=== PATIENT | female | born 1980 | race Caucasian/White ===

== ENCOUNTER 2016-06-05 12:47 | Outpatient (RCR) | payer MEDICAID ==
--- OUTSIDE RECORDS SUMMARY | 2016-05-01 14:24 | XMS REPORT | Continuity of Care Document ---
Author Author [facility] Organization [facility] Address Unknown Phone Unavailable Care Team Providers Care Php Programmer Name Role Phone [place] PCP [phone] Source Comments Some departments are not documenting in the electronic medical record. If you do not see the information that you expected, contact Release of Information in the Health Information Management department at [phone] for further assistance in locating additional records.[facility] Active Allergies and Adverse Reactions No Known Allergies Current Medications Prescription Sig. Disp. Refills Start End Date Status Date folic acid (FOLVITE) 1 mg Take 1 Tab by mouth 30 Tab 5 10/11/19 Active tablet daily. 15 cyclobenzaprine Take 1/2 tab 2 hrs prior 30 Tab 4 01/09/20 Active (FLEXERIL) 10 mg tablet to HS for muscle pain 16 amitriptyline (ELAVIL) 10 Take 1 tab 2 hrs prior to 30 Tab 5 01/09/20 Active mg tablet HS 16 hydroCHLOROthiazide Take 1 Tab by mouth 90 Tab 3 01/09/20 Active (HYDRODIURIL) 12.5 mg daily. 16 tablet lisinopril (PRINIVIL; Take 1 Tab by mouth 90 Tab 3 01/09/20 Active ZESTRIL) 5 mg tablet daily. 16 famotidine (PEPCID) 20 mg Take 1 Tab by mouth at 180 Tab 3 01/09/20 Active tablet bedtime daily. 16 metoprolol tartrate Take 1 Tab by mouth twice 180 Tab 3 01/09/20 Active (LOPRESSOR) 50 mg tablet daily. [address] Take 1 Tab by mouth 90 Tab 3 01/09/20 Active (PROTONIX) 40 mg tablet daily. 16 orphenadrine ER(+) Take 1 Tab by mouth twice 60 Tab 3 01/09/20 Active (NORFLEX) 100 mg tablet daily. 16 blood sugar diagnostic Use 1 Strip as directed 120 Strip 3 01/10/20 Active test strip daily before breakfast. 16 Brand "One Touch". ICD code E16.2 hypoglycemia Blood-Glucose Meter misc "One Touch" meter for 1 Each 0 01/10/20 Active hypoglycemia. ICD code 16 E16.2 hydroxychloroquine Take 1 Tab by mouth twice 60 Tab 5 01/16/20 Active (PLAQUENIL) 200 mg tablet daily. 16 ergocalciferol (VITAMIN Take 1 Cap by mouth every 12 Cap 2 01/16/20 Active D-2) 50,000 unit capsule 7 days. 16 Syringe with Needle Use 1 syringe weekly with 12 Syringe 3 01/16/20 Active (Disp) 1 mL 28 gauge x subcutaneous 16 1/2" syrg methotrexate. senna/docusate Take 1 Tab by mouth twice 60 Tab 0 02/03/20 Active (SENOKOT-S) 8.6/50 mg daily. 16 tablet methocarbamol (ROBAXIN) Take 1 Tab by mouth every 60 Tab 0 04/03/20 Active 500 mg tablet 8 hours as needed for 16 Spasms (Back Spasms). HYDROcodone/acetaminophen Take 1 Tab by mouth every 120 Tab 0 Active (NORCO) 5/325 mg tablet 6 hours as needed for 16 Pain gabapentin (NEURONTIN) 1 Cap three times daily. 90 Cap 1 04/03/20 Active 300 mg capsule one tab po qhs x 5 days, 16 then one tab po bid x 5 days, then one tab po tid gabapentin (NEURONTIN) 1 Cap three times daily. 90 Cap 1 01/09/20 Discontin 300 mg capsule one tab po qhs x 5 days, 16 16 ued then one tab po bid x 5 days, then one tab po tid methocarbamol (ROBAXIN) Take 1 Tab by mouth every 60 Tab 0 02/03/20 04/03/20 Discontin 500 mg tablet 8 hours as needed for 16 16 ued Spasms (Back Spasms). HYDROcodone/acetaminophen Take 1 Tab by mouth every 120 Tab 0 04/03/20 Discontin (NORCO) 5-325 mg tablet 6 hours as needed for 16 16 ued Pain Hospital, Clinic, or Ordered Dose Route Frequency Start End Date Status Other Facility Date Administered Medication methylprednisolone IX q5min x 2do 04/11/20 04/11/20 Ended acetate (DEPO-MEDROL) 80 16 16 mg/mL 80 mg, lidocaine PF 1% (10 mg/mL) 20 mg injectable mixture mepivacaine (PF)(+) 8mL IX ONCE 04/11/20 04/11/20 Ended (CARBOCAINE; POLOCAINE) 16 16 injection 8 mL methylprednisolone IX ONCE 04/12/20 04/11/20 Ended acetate (DEPO-MEDROL) 80 16 16 mg/mL 80 mg, lidocaine PF 1% (10 mg/mL) 20 mg injectable mixture methylprednisolone CHIARA-ARTICUL ONCE 04/12/20 04/11/20 Ended acetate (DEPO-MEDROL) 80 16 16 mg/mL 80 mg, lidocaine PF 1% (10 mg/mL) 20 mg injectable mixture methylprednisolone CHIARA-ARTICUL ONCE 04/25/19 04/25/19 Ended acetate (DEPO-MEDROL) 80 17 17 mg/mL 80 mg, lidocaine PF 1% (10 mg/mL) 20 mg injectable mixture mepivacaine (PF)(+) 8mL IJ ONCE 04/25/19 04/25/19 Ended (CARBOCAINE; POLOCAINE) 17 17 injection 8 mL methylprednisolone IX ONCE 04/25/19 04/25/19 Ended acetate (DEPO-MEDROL) 80 17 17 mg/mL 80 mg, lidocaine PF 1% (10 mg/mL) 20 mg injectable mixture methylprednisolone IX q5min x 2do 04/25/19 04/25/19 Ended acetate (DEPO-MEDROL) 80 17 17 mg/mL 80 mg, lidocaine PF 1% (10 mg/mL) 20 mg injectable mixture mepivacaine (PF)(+) 8mL IX ONCE 04/25/19 04/26/19 Ended (CARBOCAINE; POLOCAINE) 17 17 injection 8 mL Active Problems Problem Noted Date Cervical herniated disc 02/01/2016 Bicipital tendinitis of left shoulder 01/14/2016 Subdeltoid bursitis 01/14/2016 Hypoglycemia 01/09/2016 Overview: - Noted on recent CMP w/ BG down to 59, w/ new Sx's of lightheadedness & 5lb weight loss Plan: > Prescribe Glucometer w/ test strips, and instruct pt to check FSBG when she is feeling symptomatic. If BG <60-70, instructed pt to treat with 15g of CHO and recheck. > Counselled pt to eat frequent small meals, and eat more complex carbohydrates rather than simple carbohydrates. Orthopnea 01/09/2016 Overview: - Possibly related to cardiac etiology (w/ new intermittent ankle edema) vs. 2/2 anxiety - ECG in clinic with low voltage in precordial lead, but no ischemic changes or blocks Plan: > Echo > CT chest w/ contrast to evaluate for pulmonary etiology or possible lymphadenopathy, given hx of supraclavicular swelling, unintentional weight loss and night sweats. Hypertension 11/17/2015 Overview: - BP goal <=140/90 > Lisinopril 5mg QD, HCTZ 12.5mg QD and Lorpressor 50mg BID Macrocytic anemia 11/17/2015 Overview: - MCV 103 on last CBC with Hbg 11.7 > Check folate, B12 and iron Lymphadenopathy 11/17/2015 Overview: - B/L supraclavicular (R>L) and axillary initially developed May 2015. Also with night sweats and unintentional weight loss. - Pt notes that this supraclavicular swelling waxes and wanes in size. - Right supraclavicular IR guided biopsy 08/2015: (a discrete mass was not identified, and a hypoechoic area in one of the muscles in this area was the only region felt suitable for biopsy.) --> pathology w/ scant adipose tissue and no lymphoid tissue - CBC, peripheral smear, B12, folate, iron panel, ferritin, LDH, uric acid, T-spot all unremarkable Plan: > CT chest with contrast to evaluate for further lymphadenopthy Preventative health care 11/17/2015 Overview: - Last PAP: 2007 normal. Never had an abnormal PAP, but history of numerous cervical polyps. Strong FH of cervical cancer (grandmother, mother & sister). No family or personal Hx of ovarian or breast cancer. Discussed her increased risk for malignancy, given chronic immunosuppression. - Last Colonoscopy 12/21/15 normal. Will need repeat scope in 6 years. Father diagnosed with colon cancer (50s). Plan: > Referral to Gynecology Contact dermatitis due to adhesive bandage 08/11/2015 Overview: Pruritic 1 cm spot on each shoulder 6 days after Ped bandaid applied and removed one day later. Erythematous, papular cluster of lesions approximately the size of the Gauze inner pad on a pediatric Band-Aid (Victor Manuel pattern). Pain in both hands 05/11/2015 Cervical radicular pain 05/10/2015 Osteoarthritis of spine with radiculopathy, cervical region 05/10/2015 Overview: - MRI which shows a moderate-sized herniated disc at C6-7 > Repeat MRI of C-spine ([facility]) > Planning for neurosurgical intervention in 02/01/16. F/u with Dr. Trimble. Sacroiliitis (HCC) 01/31/2015 Fibromyalgia 01/13/2015 Shoulder pain, left 12/01/2014 Shoulder pain, right 12/01/2014 Bilateral hip bursitis 10/13/2014 Bilateral hip pain 10/13/2014 Hip bursitis 10/13/2014 Neck pain 10/11/2014 Chronic right SI joint pain 10/11/2014 Elevated liver function tests 10/11/2014 Noncompliance 10/11/2014 Encounter for long-term (current) use of high-risk medication 10/15/2013 Obesity (BMI 30.0-34.9) 10/15/2013 Low back pain 06/10/2013 Vitamin D deficiency 06/10/2013 Overview: - last vit D 16.1 (09/2015) > Will recheck vitamin D level > Start cholecalciferol 1,000 IU qd Immunocompromised (HCC) 06/10/2013 Sleep disorder 06/10/2013 Inflammatory arthritis (HCC) 11/26/2011 Overview: - Follows with Dr. Calloway in Rheumatology - Last eye exam 09/2015 with no evidence of damage from Plaquinil > Xnecmvvccndw97.5mg Q7days, Bbuupxrix739 mg/d, orphenadrine 100mg BID Joint pain 11/26/2011 Hepatitis C 11/26/2011 Overview: - Dx in 2008. Genotype 2b, HCV PCR [id number]/ml. Tx started in Mar 2013 with several months of Tx but does not think she was virus negative. - Liver biopsy with stage 1/6 fibrosis, no fat in August 2014. - Started sofosbuvir and wt based dose ribavirin (completed treatment end of September 2015.) HCV PCR is undetectable. She is responded to treatment and no evidence of HCV. SVR confirmed 3 months post treatment. Plan: > f/u with Hepatology in 01/16/16 Encounter for long-term (current) use of other high-risk medications 2011 Most Recent Encounters Date Type Specialty Providers Description 04/29/2016 Orders Only Neurosurgery Shay Trimble MD Cervical herniated disc (Primary Dx); S/P cervical spinal fusion 04/25/2016 Procedure visit Allergy,Immunology and Matty Calloway MD Right shoulder pain, Rheumatology unspecified chronicity (Primary Dx); Inflammatory arthritis (HCC); Subdeltoid bursitis, right 04/11/2016 Procedure visit Allergy,Immunology and Matty Calloway MD Shoulder arthritis Rheumatology (Primary Dx); Shoulder bursitis, left [M75.52]; Chronic left shoulder pain; Obesity (BMI 30.0-34.9); Inflammatory arthritis (HCC) 04/03/2016 Office Visit Anesthesia Pain Maninder Vargas MD Cervical radicular pain (Primary Dx); Fibromyalgia; Sacroiliitis (HCC) 02/29/2016 Telephone Anesthesia Pain Shira Ponce RN Referral 02/27/2016 Office Visit Anesthesia Pain Maninder Vargas MD Osteoarthritis of spine with radiculopathy, cervical region (Primary Dx) 02/20/2016 Hospital Radiology Shay Trimble MD Encounter 02/20/2016 Office Visit Neurosurgery Shay Trimble MD Cervical herniated disc (Primary Dx) 02/20/2016 Orders Only Neurosurgery Shay Trimble MD Herniation of cervical intervertebral disc with radiculopathy (Primary Dx); S/P cervical spinal fusion 02/08/2016 Telephone Neurosurgery Kaia Lombardo Wound 02/08/2016 Telephone Neurosurgery Shay Trimble MD General Question 02/05/2016 Telephone Neurosurgery Shay Trimble MD Follow-up Phone Call 02/01/2016 Hospital Radiology Shay Trimble MD Encounter 02/01/2016 Hospital Radiology Shay Trimble MD Encounter 02/01/2016 [facility] Radiology Shay Trimble MD Encounter 02/01/2016 Surgery Shay Trimble MD ANTERIOR CERVICAL 6-7 FUSION Immunizations Name Dates Previously Given Next Due Pneumococcal Vaccine 10/09/2015 (23-Radha Adult) Pneumococcal 06/10/2013 Vaccine(13-[facility]ha Peds/immunocompromised adult) Social History Tobacco Use Types Packs/Day Years Used Date Former Smoker Cigarettes 0.5 14 Quit: 02/03/2012 Smokeless Tobacco: Never Used Tobacco Cessation: Ready to Quit: Yes; Counseling Given: No Comments: Alcohol Use Drinks/Week oz/Week Comments No 0 Standard 0.0 drinks or equivalent Last Filed Vital Signs Vital Sign Reading Time Taken Blood Pressure 119/84 04/25/2016 12:32 PM WINE MASTER Pulse 104 04/25/2016 12:32 PM WINE MASTER Temperature 36.9 C (98.4 F) 04/25/2016 12:32 PM WINE MASTER Respiratory Rate 16 04/25/2016 12:32 PM WINE MASTER Height 1.499 m (4' 11.02") 04/25/2016 12:32 PM WINE MASTER Weight 69.037 kg (152 lb 3.2 oz) 04/25/2016 12:32 PM WINE MASTER Body Mass Index 30.72 04/25/2016 12:32 PM WINE MASTER Oxygen Saturation 96% 04/03/2016 2:03 PM WINE MASTER Plan of Care Date Type Specialty Providers Description 05/07/2016 Appointment Anesthesia Pain 06/04/2016 Appointment Allergy,Immunology and Matty Calloway MD Rheumatology [address] [place] [address] [phone] (Fax) 06/11/2016 Appointment Neurosurgery Shay Trimble MD [address] [place] [address] [phone] (Fax) 07/15/2016 Appointment Hepatology Ruba Salgado APRN [address] [place] [address] [phone] (Fax) Health Maintenance Due Date Last Done Comments Pertussis Vaccine 1992 Tetanus Vaccine 1998 Cervical Cancer Screening 2002 Influenza Vaccine 12/21/2015 Physical (Comprehensive) 11/16/2016 11/17/2015 Exam Procedures from Last 3 Months Procedure Name Priority Date/Time Associated Diagnosis Comments ARTHROCENTESIS-CLINIC Routine 04/25/2016 Right shoulder pain, Results for this 4:53 PM WINE MASTER unspecified chronicity procedure are in the Inflammatory arthritis results section. (HCC) Subdeltoid bursitis, right ARTHROCENTESIS-CLINIC Routine 04/13/2016 Shoulder arthritis Results for this 10:11 PM WINE MASTER Shoulder bursitis, left procedure are in the [M75.52] results section. PROCEDURES-SCAN 02/05/2016 Results for this 8:40 PM CDT procedure are in the results section. ANTERIOR CERVICAL 6-7 02/01/2016 Cervical stenosis of FUSION 9:50 AM CDT spinal canal Special Needs 01/28 PER CHANGE FORM, PT STATUS TYPE CHANGED FROM EXT REC TO SDA - [facility] ([id number]) Results from Last 3 Months [place] DRAIN/INJECT LARGE JOINT/BURSA (04/25/2016 4:53 PM)Only the most recent of 2 results within the time period is included. Narrative CELESTE Benites 04/25/20164:53 PM Intraarticular/ bursa injection(s) Consent was obtained Area was prepped in sterile manner. Location clarified for right patient, right location, and right medication. Location: Right glenohumeral joint andright subdeltoid bursa Procedure: Injection without aspiration. IA administration of DepoMedrol 80 mg+Lidocaine 20 mg + Mepivacaine 80 mg and bursa injection of DepoMedrol 80 mg+Lidocaine 20 Pain Scale: Before injection:09/28 Procedure done by: Leanne ALONSO Written post-injection instructions were given. Was attending physician present for the entire procedure? Yes Attending Physician: Matty Calloway MD No complications before, during, or after the procedure. Leanne Roper Rheumatology Fellow ARTHROCENTESIS-CLINIC (04/25/2016 4:53 PM) Narrative CELESTE Benites 04/25/20164:53 PM Intraarticular/ bursa injection(s) Consent was obtained Area was prepped in sterile manner. Location clarified for right patient, right location, and right medication. Location: Right glenohumeral joint andright subdeltoid bursa Procedure: Injection without aspiration. IA administration of DepoMedrol 80 mg+Lidocaine 20 mg + Mepivacaine 80 mg and bursa injection of DepoMedrol 80 mg+Lidocaine 20 Pain Scale: Before injection:09/28 Procedure done by: Leanne ALONSO Written post-injection instructions were given. Was attending physician present for the entire procedure? Yes Attending Physician: Matty Calloway MD No complications before, during, or after the procedure. Leanne Roper Rheumatology Fellow ARTHROCENTESIS-CLINIC (04/13/2016 10:11 PM) Narrative Matty Calloway MD 04/13/2016 10:11 PM Arthrocenteses/Intraarticular injection(s) Consent was obtained Area was prepped in sterile manner. Location clarified for right patient, right location, and right medication. Location: LeftShoulder IA Procedure: Injection without aspiration. Mepivacaine 60-80 mg + DepoMedrol 80 mg + Lidocaine 20 mg. Pain Scale: Before injection:6/10. Procedure done by: Matty Calloway MD, assisted by Judit BONNER . Written post-injection instructions were given. Attending physician was present for the entire procedure. Attending Physician:Matty Calloway MD No complications before, during, or after the procedure. Periarticular Injection(s) Consent was obtained Area was prepped in sterile manner. Location clarified for right patient, right location, and right medication. Location:Leftshoulder bursa Injection: DepoMedrol 80 mg plus Lidocaine 20 mg. Pain Scale: Before injection:6/10 Procedure done by: Matty Calloway MD, assisted by Judit BONNER written post-injection instructions were given. Was attending physician present for the entire procedure? Yes Attending Physician: Matty Calloway MD No complications before, during, or after the procedure. C SPINE 4 OR 5 VIEWS (02/20/2016 11:00 AM) Impressions 1. Postsurgical changes of a C6-7 discectomy with intervertebral and anterior fusion. Finalized by Regino Bullock M.D. on 02/20/2016 11:56 AM. Dictated by Regino Bullock M.D. on 02/20/2016 11:53 AM. Narrative Cervical spine History: Herniation of cervical intervertebral disc with radiculopathy. Status post cervical spinal fusion. Technique: AP, lateral, and flexion extension views of the cervical spine. Findings: Comparison is made with prior studies. The most recent are operative images from February 01, 2016. There are postsurgical changes of a C6-7 discectomy with intervertebral and anterior fusion. There is no evidence of hardware fracture or loosening. There is limited visualization of the C7 vertebral body due to overlying shoulder summation. There is mild narrowing of the C5-6 disc space with small osteophytes. There is straightening of the cervical lordosis. There is no significant abnormal motion between flexion and extension. The prevertebral soft tissues are within normal limits. Procedure Note Interface, Radiant Results - Tue Feb 20, 2016 11:59 AM CDT Cervical spine History: Herniation of cervical intervertebral disc with radiculopathy. Status post cervical spinal fusion. Technique: AP, lateral, and flexion extension views of the cervical spine. Findings: Comparison is made with prior studies. The most recent are operative images from February 01, 2016. There are postsurgical changes of a C6-7 discectomy with intervertebral and anterior fusion. There is no evidence of hardware fracture or loosening. There is limited visualization of the C7 vertebral body due to overlying shoulder summation. There is mild narrowing of the C5-6 disc space with small osteophytes. There is straightening of the cervical lordosis. There is no significant abnormal motion between flexion and extension. The prevertebral soft tissues are within normal limits. IMPRESSION 1. Postsurgical changes of a C6-7 discectomy with intervertebral and anterior fusion. Finalized by Regino Bullock M.D. on 02/20/2016 11:56 AM. Dictated by Regino Bullock M.D. on 02/20/2016 11:53 AM. PROCEDURES-SCAN (02/05/2016 8:40 PM) Narrative Ordered by an unspecified provider. POC GLUCOSE (02/03/2016 7:39 AM)Only the most recent of 8 results within the time period is included. Component Value Range Glucose, POC 72 70-100 MG/DL TROPONIN-I (02/01/2016 11:25 PM) Component Value Range Troponin-I 0.01 0.0-0.05 NG/ML Specimen Blood SURGICAL PATHOLOGY (02/01/2016 12:25 PM) Component Value Range PATHOLOGY REPORT [facility] [email or web address] Zhang MD, PhD, Director of Anatomic Pathology Department of Pathology and Laboratory Medicine [address] [place] [phone] Surgical Pathology Office: [phone] SURGICAL PATHOLOGY REPORT NAME: ARIELA STORY MUNIRA SURG PATH #: [id number] MR #: [id number] SPECIMEN CLASS: SR BILLING #: [id number] ALT ID #: [facility] DATE OF PROCEDURE: 02/01/2016 AGE: 35 SEX: F DATE RECEIVED: 02/01/2016 : 1980 TIME RECEIVED: 12:25 PHYSICIAN: SHAY TRIMBLE DATE OF REPORT: 02/02/2016 COPY TO: DATE OF PRINTIN02/02/2016 ################################################## ###################### Final Diagnosis: A. Intervertebral disc, "C6-7disc", discectomy: Non specific degenerative changes. Attestation: By this signature, I attest that I have personally formulated the final interpretation expressed in this report and that the above diagnosis is based upon my examination of the slides and/or other material indicated in this report. +++Electronically Signed Out By+++ adal/02/01/2016 Interpreted by: Joseph Smith MD, Attending Physician 02/02/2016 ################################################## ###################### Material Received: A: C6-7 disc History: 35-year-old female with a clinical history of cervical stenosis of spinal canal. Gross Description: Fixative: Formalin Labeled: "C6-7 disc" Dimensions: 2.0 x 2.0 x 0.5 cm aggregate Cassette A1- [employer] section of specimen. (jkh) j/02/01/2016 C SPINE 1 VIEW (02/01/2016 11:48 AM)Only the most recent of 3 results within the time period is included. Impressions Impression: No localizing signs are visualized. Finalized by Timothy Enriquez M.D. on 02/01/2016 1:55 PM. Dictated by Timothy Enriquez M.D. on 02/01/2016 1:53 PM. Narrative Cervical spine, one view Clinical history: Intraoperative localization Comparison study: Earlier film of same day Findings: The localizing needles at C5-C6, C6-7 are no longer visualized. C1 through C5 is well visualized. Below C5-6, the film is poorly penetrated. Procedure Note Interface, Radiant Results - Lillie Feb 01, 2016 2:01 PM CDT Cervical spine, one view Clinical history: Intraoperative localization Comparison study: Earlier film of same day Findings: The localizing needles at C5-C6, C6-7 are no longer visualized. C1 through C5 is well visualized. Below C5-6, the film is poorly penetrated. IMPRESSION Impression: No localizing signs are visualized. Finalized by Timothy Enriquez M.D. on 02/01/2016 1:55 PM. Dictated by Timothy Enriquez M.D. on 02/01/2016 1:53 PM. TEST-URINE (02/01/2016 8:30 AM) Component Value Range Urine-HCG NEG Specific [place] 1.026 Specimen Urine
[~2016-06-05 12:47] MED LIST: CEPH-38 PO; CRS350T PO; HYDR-707 PO; HYDR1TAB PO; LNZ600T PO; LORA-794 PO; LORA1TAB; LORA1TAB PO; ONDAN4ODT PO; PROM25SU10 PR; SERT25TA; SERT50TA PO; VNL75T PO
== END 2016-06-05 14:06 | disposition home or self-care (01) ==
PROVIDERS: ATTEND Anesthesiology Pain Medicine
DX: M54.12 Radiculopathy, cervical region (principal); M79.7 Fibromyalgia

== ENCOUNTER 2017-05-15 13:07 | Outpatient (RCR) | payer MEDICAID | END 2017-06-16 13:52 | disposition home or self-care (01) | PROVIDERS: ATTEND Anesthesiology Pain Medicine | DX: M54.12 Radiculopathy, cervical region (principal); M79.7 Fibromyalgia; M46.1 Sacroiliitis, not elsewhere classified; M46.96 Unspecified inflammatory spondylopathy, lumbar region ==

== ENCOUNTER 2019-03-04 15:17 | Emergency (ER) | payer MEDICAID ==
[~2019-03-04] VITALS: Ht 147.3 cm; Wt 66.9 kg
[2019-03-04] MEDS ORDERED: NS IV 1000 ML 1,000 ML IV SCH (16:15)
[2019-03-04] MEDS ORDERED: KETOROLAC 30 MG/ML VIAL IVP ONE (16:15)
--- NOTE | 2019-03-04 16:19 | ED General ---
General Chief Complaint: General Problems/Pain Stated Complaint: SWOLLEN LYMPH NODES, NAUSEA Nursing Triage Note: FEELING SLUGGISH, LAST NIGHT SOB WHEN LAYING DOWN AND HAD TO USE HER INHALER. SWOLLEN LYMPHNODE ON THE RIGHT NECK. Nursing Sepsis Screen: No Definite Risk Source of Information: Patient Exam Limitations: No Limitations History of Present Illness Date Seen by Provider: Mar 04, 2019 Time Seen by Provider: 16:18 Initial Comments To ER with a 2 to three-day history of general malaise and fatigue, no fevers no cough no shortness of breath, chronic joint aching which is not unusual for her, swollen lymph node to the right side of the neck. No sore throat. Timing/Duration: 2-3 Days Severity: Moderate Associated Systoms: Denies Symptoms Allergies and Home Medications Allergies Coded Allergies: NKANo Known Allergies (Verified Allergy, Unknown, 04/15/08) Home Medications Carisoprodol 350 Mg Tablet, 350 MG PO TID, (Reported) Hydrocodone Bit/Acetaminophen 1 Each Tablet, 1-2 EACH PO Q4HR PRN Prescribed by: PEARL RONQUILLO on 08/12/11 0409 Lorazepam 0.5 Mg Tablet, 0.5 MG PO BID, (Reported) Venlafaxine Hcl 75 Mg Tab, 75 MG PO TID, (Reported) Patient Home Medication List Home Medication List Reviewed: Yes Review of Systems Review of Systems Constitutional: see HPI, malaise EENTM: see HPI Respiratory: no symptoms reported Cardiovascular: no symptoms reported Genitourinary: no symptoms reported Musculoskeletal: no symptoms reported Skin: no symptoms reported Psychiatric/Neurological: No Symptoms Reported Hematologic/Lymphatic: No Symptoms Reported Past Pvkkjlh-Jrezuy-Aawrtt Hx Patient Social History Alcohol Use: Denies Use Recreational Drug Use: No Smoking Status: Light Tobacco Smoker Type Used: Cigarettes Recent Foreign Travel: No Contact w/Someone Who Travel: No Recent Infectious Disease Expo: No Recent Hopitalizations: No Physical Abuse: No Sexual Abuse: No Mistreated: No Fear: No Seasonal Allergies Seasonal Allergies: No Past Medical History Surgeries: Yes (LYMPHNODE REMOVAL, "PLATE IN NECK") Respiratory: No Cardiac: Yes Hypertension Neurological: No : No Last Menstrual Period: Feb 12, 2019 Reproductive Disorders: No Genitourinary: No Gastrointestinal: No Musculoskeletal: Yes Arthritis Endocrine: No HEENT: No Cancer: No Psychosocial: No Blood Disorders: No Physical Exam Vital Signs Vital Signs - First Documented 03/04/19 15:35 Temp 37.1 Pulse 111 Resp 20 B/P (MAP) 139/101 (114) Pulse Ox 98 Capillary Refill : Less Than 3 Seconds Height, Weight, BMI Height: '" Weight: lbs. oz. kg; 30.00 BMI Method:Stated General Appearance: No Apparent Distress, WD/WN Eyes: Bilateral Eye Normal Inspection, Bilateral Eye PERRL, Bilateral Eye EOMI HEENT: PERRL/EOMI, TMs Normal Neck: Full Range of Motion, Normal Inspection, Lymphadenopathy (R) (lymphadenopathy to the right side of the neck which is either the deep cervical chain inferiorly or supraclavicular) Respiratory: Lungs Clear, Normal Breath Sounds, No Accessory Muscle Use, No Respiratory Distress Cardiovascular: Regular Rate, Rhythm, Normal Peripheral Pulses Gastrointestinal: Normal Bowel Sounds, Non Tender, Soft Extremity: Normal Capillary Refill, Normal Inspection Neurologic/Psychiatric: Alert, Oriented x3 Progress/Results/Core Measures Suspected Sepsis Recent Fever Within 48 Hours: No Infection Criteria Present: Suspected New Infection New/Unexplained Altered Menta: No Sepsis Screen: No Definite Risk SIRS Temperature: Pulse: 111 Respiratory Rate: 20 Laboratory Tests 03/04/19 16:25: White Blood Count 6.9 Blood Pressure 139 /101 Mean: 114 Laboratory Tests 03/04/19 16:25: Creatinine 0.82, Platelet Count 174, Total Bilirubin 0.3 Results/Orders Lab Results Laboratory Tests Test 03/04/19 16:25 Range/Units White Blood Count 6.9 4.3-11.0 10^3/uL Red Blood Count 4.63 4.35-5.85 10^6/uL Hemoglobin 13.8 11.5-16.0 G/DL Hematocrit 41 35-52 % Mean Corpuscular Volume 89 80-99 FL Mean Corpuscular Hemoglobin 30 25-34 PG Mean Corpuscular Hemoglobin Concent 34 32-36 G/DL Red Cell Distribution Width 13.1 10.0-14.5 % Platelet Count 174 130-400 10^3/uL Mean Platelet Volume 10.3 7.4-10.4 FL Neutrophils (%) (Auto) 65 42-75 % Lymphocytes (%) (Auto) 26 12-44 % Monocytes (%) (Auto) 7 0-12 % Eosinophils (%) (Auto) 2 0-10 % Basophils (%) (Auto) 0 0-10 % Neutrophils # (Auto) 4.5 1.8-7.8 X 10^3 Lymphocytes # (Auto) 1.8 1.0-4.0 X 10^3 Monocytes # (Auto) 0.5 0.0-1.0 X 10^3 Eosinophils # (Auto) 0.1 0.0-0.3 10^3/uL Basophils # (Auto) 0.0 0.0-0.1 10^3/uL Sodium Level 140 135-145 MMOL/L Potassium Level 3.8 3.6-5.0 MMOL/L Chloride Level 107 98-107 MMOL/L Carbon Dioxide Level 22 21-32 MMOL/L Anion Gap 11 5-14 MMOL/L Blood Urea Nitrogen 8 7-18 MG/DL Creatinine 0.82 0.60-1.30 MG/DL Estimat Glomerular Filtration Rate > 60 BUN/Creatinine Ratio 10 Glucose Level 105 70-105 MG/DL Calcium Level 9.4 8.5-10.1 MG/DL Corrected Calcium 9.0 8.5-10.1 MG/DL Total Bilirubin 0.3 0.1-1.0 MG/DL Aspartate Amino Transf (AST/SGOT) 18 5-34 U/L Alanine Aminotransferase (ALT/SGPT) 24 0-55 U/L Alkaline Phosphatase 52 40-136 U/L C-Reactive Protein High Sensitivity 0.17 0.00-0.50 MG/DL Total Protein 7.3 6.4-8.2 GM/DL Albumin 4.5 3.2-4.5 GM/DL Serum Test, Qualitative NEGATIVE NEGATIVE Monoscreen NEGATIVE NEGATIVE Group A Streptococcus Screen NEGATIVE NEGATIVE Micro Results Microbiology 03/04/19 Influenza Types A,B Antigen (THU) - Final, Complete My Orders Orders - ADDY ENNIS UNDER PRESSER Cbc With Automated Diff (03/04/19 16:04) Hs C Reactive Protein (03/04/19 16:04) Comprehensive Metabolic Panel (03/04/19 16:04) Chest Pa/Lat (2 View) (03/04/19 16:04) Rapid Strep A Screen (03/04/19 16:04) Monotest (03/04/19 16:04) Influenza A And B Antigens (03/04/19 16:04) Ed Iv/Invasive Line Start (03/04/19 16:04) Hcg,Qualitative Serum (03/04/19 16:04) Ns Iv 1000 Ml (Sodium Chloride 0.9%) (03/04/19 16:15) Ketorolac Injection (Toradol Injection) (03/04/19 16:15) Medications Given in ED Current Medications Medications Dose Ordered Sig/Bashir Route Start Time Stop Time Status Last Admin Dose Admin Ketorolac Tromethamine 15 mg ONCE ONCE IVP 03/04/19 16:15 03/04/19 16:16 DC 03/04/19 16:22 15 MG Vital Signs/I&O 03/04/19 15:35 Temp 37.1 Pulse 111 Resp 20 B/P (MAP) 139/101 (114) Pulse Ox 98 Capillary Refill : Less Than 3 Seconds Blood Pressure Mean: 114 POS Departure Impression Primary Impression: Lymphadenopathy Additional Impression: General symptom Disposition: 01 HOME, SELF-CARE Condition: Stable Departure-Patient Inst. Decision time for Depature: 17:19 Referrals: NO,LOCAL PHYSICIAN (PCP) Primary Care Physician Patient Instructions: NO INSTRUCTIONS GIVEN Add. Discharge Instructions: 1. Follow-up with your doctor next week, if these lymph nodes remains swollen you need to be evaluated by a surgeon for possible biopsy. All discharge instructions reviewed with patient and/or family. Voiced understanding. Work/School Note: Work Release Form Date Seen in the Emergency Department: Mar 04, 2019 Return to Work: Mar 05, 2019 ADDY ENNIS APRN Mar 04, 2019 16:19 POS
[2019-03-04 16:36] LABS: BASOPHILS % (AUTO) 0 % (0-10); EOSINOPHILS # (AUTO) 0.1 10^3/uL (0.0-0.3); EOSINOPHILS % (AUTO) 2 % (0-10); HEMATOCRIT 41 % (35-52); HEMOGLOBIN 13.8 G/DL (11.5-16.0); LYMPHOCYTES # (AUTO) 1.8 X 10^3 (1.0-4.0); LYMPHOCYTES % (AUTO) 26 % (12-44); MEAN CORPUSCULAR HEMOGLOBIN 30 PG (25-34); MEAN CORPUSCULAR HGB CONC 34 G/DL (32-36); MEAN CORPUSCULAR VOLUME 89 FL (80-99); MEAN PLATELET VOLUME 10.3 FL (7.4-10.4); MONOCYTES # (AUTO) 0.5 X 10^3 (0.0-1.0); MONOCYTES % (AUTO) 7 % (0-12); NEUTROPHILS # (AUTO) 4.5 X 10^3 (1.8-7.8); NEUTROPHILS % (AUTO) 65 % (42-75); PLATELET COUNT 174 10^3/uL (130-400); RED CELL DISTRIBUTION WIDTH 13.1 % (10.0-14.5); WHITE BLOOD COUNT 6.9 10^3/uL (4.3-11.0)
[2019-03-04 16:57] LABS: ALANINE AMINOTRANSFERASE 24 U/L (0-55); ALBUMIN 4.5 GM/DL (3.2-4.5); ALKALINE PHOSPHATASE 52 U/L (40-136); BILIRUBIN,TOTAL 0.3 MG/DL (0.1-1.0); BUN/CREATININE RATIO 10; CALCIUM 9.4 MG/DL (8.5-10.1); CARBON DIOXIDE 22 MMOL/L (21-32); CHLORIDE 107 MMOL/L (98-107); CREATININE SERUM 0.82 MG/DL (0.60-1.30); GFR ESTIMATED > 60; GLUCOSE 105 MG/DL (70-105); POTASSIUM 3.8 MMOL/L (3.6-5.0); SODIUM 140 MMOL/L (135-145); TOTAL PROTEIN 7.3 GM/DL (6.4-8.2)
--- NOTE | 2019-03-04 17:13 | Diagnostic Imaging Report ---
Patient History: Shortness of breath.. Technique: Two views of the chest Comparison: 08/12/2011 FINDINGS: The lung volumes are normal. No focal consolidation is seen. No large pleural effusion or pneumothorax is seen. The cardiomediastinal silhouette is normal in size and contour. No acute osseous abnormality is seen. Fusion changes are noted in the cervical spine. IMPRESSION: 1. No acute pleuroparenchymal process. Dictated by: Dictated on workstation # [id number]
[2019-03-04 17:35] VITALS: BP 124/88
== END 2019-03-04 17:35 | disposition home or self-care (01) ==
LOC: EDUNIT# 15:17 → ER 15:19
DX: R59.0 Localized enlarged lymph nodes (principal); I10 Essential (primary) hypertension; R53.81 Other malaise; R53.83 Other fatigue; M25.50 Pain in unspecified joint; F17.210 Nicotine dependence, cigarettes, uncomplicated
CPT/HCPCS: 36415; 71046; 80053; 84703; 85025; 86141; 86308; 87430; 87804; 96361; 96374

== ENCOUNTER 2019-08-18 08:33 | Emergency (ER) | payer MEDICAID ==
--- OUTSIDE RECORDS SUMMARY | 2019-08-18 08:39 | XMS REPORT | Encounter Summary ---
Author Author [facility] Organization [facility] Address Unknown Phone Unavailable Care Team Providers Care Cash Register Servicer Name Role Phone KellyMonika goldsmith ENVIRONMENTAL COMPLIANCE TECHNICIAN Unavailable Unavailable Attila Cleary MD Unavailable Daron Garcia MD Unavailable Ruba Salgado APRN Unavailable Whitney Carrera RN Unavailable Unavailable Maninder Vargas MD Unavailable Hans Hutchison MD Unavailable Leanne Harper Unavailable Unavailable Ene Patel Unavailable Unavailable Digna June RN Unavailable Unavailable Ezio Encarnacion Unavailable Unavailable Sherry Shrestha PHARMD Unavailable Unavailable Elise Robins MA Unavailable Unavailable Saima Harmon MA Unavailable Unavailable Taylor Covarrubias Unavailable Unavailable Shay Prince MD Unavailable Unavailable Shira Suazo RN Unavailable Unavailable Lupe Henley RN Unavailable Unavailable Debby Oviedo MD Unavailable Tamica Park DO PCP Reason for Visit * Reason Comments Results Encounter Details Care Team Description Date Type Department Maninder Vargas MD [address] [facility] [place] [address] Results 07/12/2019 Telephone [facility] [address] [facility] [address] [place] [address] Social History Date Tobacco Use Types Packs/Day Years Used Quit: 02/03/2012 Former Smoker Cigarettes 0.5 14 Smokeless Tobacco: Never Used Drinks/Week oz/Week Comments Alcohol Use 0 Standard drinks or equivalent 0.0 No Sex Assigned at Date Recorded Not on file Industry Job Start Date Occupation Not on file Not on file Not on file Travel End Travel History Travel Start No recent travel history available. documented as of this encounter Functional Status Date of Assessment Functional Status Response 06/09/2019 Does the patient have a hearing impairment: No 06/09/2019 Does the patient have a visual impairment: No 06/09/2019 Does the patient have impaired ambulation: No 06/09/2019 Does the patient have an activity of daily living No (ADL) impairment: 06/09/2019 Does the patient have an instrumental activity of No daily living (IADL) impairment: Date of Assessment Cognitive Status Response 06/09/2019 Does the patient have a cognitive impairment: No documented as of this encounter Miscellaneous Notes * Telephone Encounter - Génesis Leonard BSN - 07/14/2019 12:06 PM CDT Maninder Vargas MD You 2 hours ago (9:23 AM) Please order 2 patches q12h on and off, #60 with 3 refills. Thank you! Routing comment Medication ordered and sent to pharmacy * Telephone Encounter - Tran Phillip LPN - 07/13/2019 4:27 PM CDT Contacted patient and results. She would like to try Lidocaine patches and have them sent to her pharmacy. * Telephone Encounter - Génesis Leonard BSN - 07/12/2019 9:43 AM CDT LM for patient to contact the office back to discuss results * Telephone Encounter - Génesis Leonard BSN - 07/12/2019 9:41 AM CDT ----- Message from Maninder Vargas MD sent at 07/12/2019 7:24 AM CDT ----- MIld disc changes of the throracic spine. I think we need to send her for PT wh en there is not any restrictions on travel ( she's immunosuppresed and at higher risk of community spread). We could order lidocaine patches for her pain. Her insurance will likely not allow an MRI unless she tries PT first. documented in this encounter Plan of Treatment Not on filedocumented as of this encounter Visit Diagnoses Not on filedocumented in this encounter
--- OUTSIDE RECORDS SUMMARY | 2019-08-18 08:39 | XMS REPORT | Clinical Summary ---
Author Author [facility] Organization [facility] Address Unknown Phone Unavailable Care Team Providers Care Machine Repair Person Name Role Phone KellyMonika LOADING DOCK HAND Unavailable Unavailable Attila Cleary MD Unavailable Daron Garcia MD Unavailable Ruba Salgado APRN Unavailable Whitney Carrera RN Unavailable Unavailable Maninder Vargas MD Unavailable Hans Hutchison MD Unavailable Leanne Harper Unavailable Unavailable Ene Patel Unavailable Unavailable Digna June RN Unavailable Unavailable Ezio Encarnacion Unavailable Unavailable Sherry ShresthaD Unavailable Unavailable Elise Robins MA Unavailable Unavailable Saima Harmon MA Unavailable Unavailable Taylor Covarrubias Unavailable Unavailable Shay Prince MD Unavailable Unavailable Shira Suazo RN Unavailable Unavailable Lupe Henley RN Unavailable Unavailable Debby Oviedo MD Unavailable Tamica Park DO PCP Source Comments Some departments are not documenting in the electronic medical record. If you d o not see the information that you expected, contact Release of Information in [facility] Health Information Management department at [phone] for further assistan ce in locating additional records.[facility] Allergies No Known Allergies Medications End Date Status Medication Sig Dispensed Refills Start Date Active blood sugar diagnostic Use 1 Strip 120 Strip 3 test strip as directed 6 daily before breakfast. Brand "One Touch". ICD code E16.2 hypoglycemia Active Blood-Glucose Meter misc "One Touch" 1 Each 0 0 9/21/201 meter for 6 hypoglycemia. ICD code E16.2 Active amitriptyline-gabapentin- Apply 5 g 100 g 11 emu oil (bulk) in cream topically to 8 base no.135 (bulk) affected area 4/4/10% topical three times creamIndications: daily. Fibromyalgia Active hydroxychloroquine Take 1 tablet 60 tablet 1 09/17 (PLAQUENIL) 200 mg tablet by mouth 8 twice daily. Take with food. Active meloxicam (MOBIC) 15 mg Take 1 tablet 90 tablet 3 tabletIndications: by mouth 8 Inflammatory arthritis daily. Active senna/docusate Take 1 tablet 30 tablet 0 (SENOKOT-S) 8.6/50 mg by mouth 8 tablet twice daily. Hold for loose stools. Active docusate (COLACE) 100 mg Take one 60 capsule 2 0 capsule capsule by 9 mouth twice daily. Active diazePAM (VALIUM) 5 mg Take one 2 tablet 0 tablet tablet 1 hour 9 prior to MRI, may repeat x 1 prior to MRI if needed Active gabapentin (NEURONTIN) Take two 180 capsule 3 300 mg capsules by 0 capsuleIndications: mouth three Fibromyalgia times daily. Active HYDROcodone/acetaminophen Take 1 tablet 120 tablet 0 (NORCO) 5/325 mg by mouth 0 tabletIndications: every 6-8 Fibromyalgia hours as needed for Pain Active HYDROcodone/acetaminophen Take 1 tablet 120 tablet 0 (NORCO) 5/325 mg by mouth 0 tabletIndications: every 6-8 Fibromyalgia hours as needed for Pain Active HYDROcodone/acetaminophen Take 1 tablet 120 tablet 0 (NORCO) 5/325 mg by mouth 0 tabletIndications: every 6-8 Fibromyalgia hours as needed for Pain Active lidocaine (LIDODERM) 5 % Apply two 60 patch 3 0 topical patch patches 0 topically to affected area every 12 hours. Apply patch for 12 hours, then remove for 12 hours before repeating. Active Problems Problem Noted Date Trochanteric bursitis of left hip 06/09/2019 Stenosis of cervical spine 07/31/2018 Cervical radiculopathy 07/31/2018 Trochanteric bursitis of both hips 03/10/2018 Flank pain 09/18/2017 Overview: - Chonic bilateral flank pain - Prior UA with blood but follow up UA and urine culture completely normal - Possibly musculoskeletal etiology rel ated to fibromyalgia, but need to r/o renal pathology. Plan: > Renal ultrasound > BMP Family history of ovarian cancer 06/26/2017 Overview: - FH of ovarian cancer in her mother, g randmother and great grandmother. She denies a FH of breast, uterine, col on or cervical cancer. - Pt not up to date on cervical cancer screening Plan: > Referral for Genetic Counselling > Gynecology referral for PAP (pt prefe faribaly) Gross hematuria 06/26/2017 Overview: - Unknown etiology, but will treat for UTI and reassess after completion of Abx - UA (): 25 leuks & 50 rbcs, neg n itrites Plan: > Bactrim x 7 days > Repeat UA in 1 month. If no resolutio n of hematuria, will investigate further. Spondylosis of cervical region without myelopathy or radiculopathy 05/20/2017 Degenerative disc disease, cervical 12/17/2016 S/P cervical spinal fusion 12/17/2016 Lumbar facet arthropathy 12/17/2016 Chronic right-sided low back pain without sciatica 0 10/08/2016 Hypertrophic scar 07/17/2016 Anxiety 06/26/2016 Overview: - Previously failed multiple SSRIs & Bu spar - Previously followed with Psychology, but quit - No SI/HI Plan: > Referral to [facility] Psychology (Dr. Col dumont) > Consider Psychiatry referral Constipation 06/26/2016 Overview: - Possibly medication induced (related to narcotic pain relievers) > Recommend Miralax QD and increased hy dration Encounter for therapeutic drug monitoring 06/04/2016 Cervical herniated disc 02/01/2016 Bicipital tendinitis of left shoulder 01/14/2016 Subdeltoid bursitis 01/14/2016 Hypoglycemia 01/09/2016 Overview: - Noted on recent CMP w/ BG down to 59, w/ new Sx's of lightheadedness & 5lb weight loss Plan: > Prescribe Glucometer w/ test strips, and instruct pt to check FSBG when she is feeling symptomatic. If BG <60-7 0, instructed pt to treat with 15g of CHO and recheck. > Counselled pt to eat frequent small m eals, and eat more complex carbohydrates rather than simple carboh ydrates. Orthopnea 01/09/2016 Overview: - Possibly related to cardiac etiology (w/ new intermittent ankle edema) vs. 2/2 anxiety - ECG in clinic with low voltage in pre cordial lead, but no ischemic changes or blocks Plan: > Echo > CT chest w/ contrast to evaluate for pulmonary etiology or possible lymphadenopathy, given hx of supraclavi cular swelling, unintentional weight loss and night sweats. Hypertension 11/17/2015 Overview: Formatting of this note might be differ ent from the original. BP Readings from Last 3 Encounters: 06/24/17 (!) 133/91 06/17/17 124/74 06/05/17 95/68 - BP goal <= 140/90 > HCTZ 12.5mg QD Macrocytic anemia 11/17/2015 Overview: - MCV 103 on last CBC with Hbg 11.7 > Check folate, B12 and iron Lymphadenopathy 11/17/2015 Overview: - B/L supraclavicular (R>L) and axillar y initially developed May 2015. Also with night sweats and unintentiona l weight loss. - Pt notes that this supraclavicular sw elling waxes and wanes in size. - Right supraclavicular IR guided biops y 08/2015: (a discrete mass was not identified, and a hypoechoic area in on e of the muscles in this area was the only region felt suitable for biops y.) --> pathology w/ scant adipose tissue and no lymphoid tissue - CBC, peripheral smear, B12, folate, i krishna panel, ferritin, LDH, uric acid, T-spot all unremarkable - CT chest, MRI head/neck and Thyroid u ltrasound with no concerning findings - s/p excisional biopsy 06/18/16 with Ge neral Surgery. The pathology showed mild fibrosis with no lymphoid tissue. Plan: > Consider trigger point injection at n ext Rheumatology clinic visit > Continue to monitor for further [facility] health care 11/17/2015 Overview: - Last PAP: 2007 normal. Never had an a bnormal PAP, but history of numerous cervical polyps. Strong FH of cervical cancer (grandmother, mother & sister). No family or personal Hx of ov sheryl or breast cancer. Discussed her increased risk for malignancy, give n chronic immunosuppression. - Last Colonoscopy 12/21/15 normal. Will need repeat scope in 6 years. Father diagnosed with colon cancer (50s). Plan: > Referral to Gynecology (emphasized im portance of scheduling this appointment) Contact dermatitis due to adhesive bandage 6 Overview: Pruritic 1 cm spot on each shoulder 6 d ays after Ped bandaid applied and removed one day later. Erythematous, pa pular cluster of lesions approximately the size of the Gauze i nner pad on a pediatric Band-Aid ([place] pattern). Pain in both hands 05/11/2015 Cervical radicular pain 05/10/2015 Osteoarthritis of spine with radiculopathy, cervical region 05/10/2015 Overview: - MRI which shows a moderate-sized jesika iated disc at C6-7 > Repeat MRI of C-spine ([facility]) > Planning for neurosurgical interventi on in 02/01/16. F/u with Dr. Prince. Sacroiliitis 01/31/2015 Fibromyalgia 01/13/2015 Shoulder pain, left 12/01/2014 Shoulder pain, right 12/01/2014 Bilateral hip bursitis 10/13/2014 Bilateral hip pain 10/13/2014 Hip bursitis 10/13/2014 Neck pain 10/11/2014 Chronic right SI joint pain 10/11/2014 Elevated liver function tests 10/11/2014 Noncompliance 10/11/2014 Encounter for long-term (current) use of high-risk me dication 10/15/2013 Obesity (BMI 30.0-34.9) 10/15/2013 Low back pain 06/10/2013 Vitamin D deficiency 06/10/2013 Overview: - last vit D 15.7 (09/17/17) - Vitamin D has been low for 8 years. S uspect non compliance with vitamin D supplement. Plan: > Continue Ergocalciferol 50,000 IU Q7d ays x 12 weeks (encouraged compliance) > Start cholecalciferol 2,000 IU qd aft er she completes the 12 weeks of high dose ergocalciferol Immunocompromised 06/10/2013 Sleep disorder 06/10/2013 Hx of Inflammatory arthritis 11/26/2011 Overview: - Initially diagnosed with seronegative inflammatory arthritis and was treated with DMARD therapy without any improvement and arthralgia. Recently seen by Dr. Sutherland & Dr. Roman galindo, who feel that inflammatory arthritis is less likely and fibromyalg ia is more likely the underlying problem. Methotrexate was DCed 06/05/17. - Previously followed with Dr. Calloway in Rheumatology - Last eye exam 09/2016 with no evidenc e of damage from Plaquinil Plan: > Plaquenil 200 mg bid (refilled until pt can see Rheum and referral ordered to Ophthalmology for updated ey e exam) > Continue Meloxicam 15mg qd > Referral placed for eye exam > Consider medications such as Cymbalta , Savella, or Lyrica for her fibromyalgia. > Ordered Amitriptyline/ Gabapentin/ Em u oil cream to apply to painful joints PRN > External referral for Rheumatology, ( pt requests 2nd opinion) Joint pain 11/26/2011 Hepatitis C 11/26/2011 Overview: - Dx in 2008. Genotype 2b, HCV PCR 8928 866IU/ml. Tx started in Mar 2013 with several months of Tx but does not think she was virus negative. - Liver biopsy with stage 1/6 fibrosis, no fat in August 2014. - Started sofosbuvir and wt based dose ribavirin (completed treatment end of September 2015.) HCV PCR is undetectable. She is responded to treatment and no evidence of HCV. SVR confirmed 3 mon ths post treatment. Plan: > f/u with Hepatology in 01/16/16 Encounter for long-term (current) use of other high-r isk medications 11/26/2011 Encounters Care Team Description Date Type Specialty Maninder Vargas MD Results 07/12/2019 Telephone Anesthesia Pain Maninder Vargas MD 07/06/2019 Hospital Radiology Encounter Maninder Vargas MD Hx of Inflammatory arthritis (Primary Dx ); Chronic bilateral low back pain without sciatica; Pain of both hip joints; Encounter for long-term (current) use of high-risk medication; Fibromyalgia; Osteoarthritis of spine with radiculopathy, cervical region; Thoracic spine pain 07/06/2019 Office Visit Anesthesia Pain 07/06/2019 Travel Maninder Vargas MD 06/09/2019 Hospital Radiology Encounter Maninder Vargas MD Sacroiliitis (HCC) (Primary Dx); Fibromyalgia; Trochanteric bursitis of left hip; Trochanteric bursitis of both hips 06/09/2019 Procedure visit Anesthesia Pain Maninder Vargas MD Sacroiliitis (HCC) (Primary Dx) 05/28/2019 Orders Only Anesthesia Pain from Last 3 Months Immunizations Name Administration Dates Next Due Flu Vaccine Trivalent >64 06/04/2016 Yo High-dose (Preservative Free) Pneumococcal Vaccine 10/09/2015 (23-Radha Adult) Pneumococcal 06/10/2013 Vaccine(13-Radha Peds/immunocompromised adult) Family History Medical History Relation Name Comments Cancer Father Cancer-Colon Father Cirrhosis Father Heart Attack Maternal Grandfather Heart Failure Maternal Grandfather Cancer Maternal Grandmother Cervical Cancer Maternal Grandmother Cervical Cancer Mother Cirrhosis Mother Colon Polyps Mother Depression Mother Diabetes Mother Melanoma Neg Hx Relation Name Status Comments Father Alive Maternal Grandfather Maternal Grandmother Mother Alive Paternal Grandfather Social History Date Tobacco Use Types Packs/Day Years Used Quit: 02/03/2012 Former Smoker Cigarettes 0.5 14 Smokeless Tobacco: Never Used Tobacco Cessation: Ready to Quit: Yes; C ounseling Given: No Drinks/Week oz/Week Comments Alcohol Use 0 Standard drinks or equivalent 0.0 No Sex Assigned at Date Recorded Not on file Industry Job Start Date Occupation Not on file Not on file Not on file Travel End Travel History Travel Start No recent travel history available. Last Filed Vital Signs Reading Time Taken Comments Vital Sign 141/84 07/06/2019 1:01 PM CDT Blood Pressure 67 07/06/2019 1:01 PM CDT Pulse 36.7 C (98 F) 06/09/2019 1:46 PM SHIP [employer]ENER Temperature 16 06/09/2019 1:46 PM SHIP [employer]ENER Respiratory Rate 100% 07/06/2019 1:01 PM CDT Oxygen Saturation - - Inhaled Oxygen Concentration 68 kg (150 lb) 07/06/2019 1:01 PM CDT Weight 147.3 cm (4' 10") 07/06/2019 1:01 PM CDT Height 31.35 07/06/2019 1:01 PM CDT Body Mass Index Plan of Treatment Health Maintenance Due Date Last Done Comments DTAP/TDAP VACCINES (1 - 09/08/1999 Tdap) PHYSICAL (COMPREHENSIVE) 07/14/2018 07/14/2017, EXAM 11/17/2015 INFLUENZA VACCINE 01/20/2020 06/04/2016, 02/04/2007 CERVICAL CANCER SCREENING 07/14/2020 07/14/2017 HEPATITIS C SCREENING Completed 01/16/2017, 07/17/2016, 01/17/2016, Additional history exists HIV SCREENING Completed 07/14/2017, 12/26/2015, 01/04/2014 Implants Device Identifier Shelf Expiration Date Model / Serial / L ot Implanted Type Area Manufactur er 07/12/2018 [id number] / [id number] / [id number] Spacer Allograft [id number] [employer] Lordotic Cervical MEDICAL Implanted: Qty: 1 on 02/01/2016 by Shay Prince MD at [facility] [id number] / [id number] / - Plate 12mm 1 Level Xtend Bone Spine N/A: Neck G LOBAL Cervical Anterior MEDICAL Implanted: Qty: 1 on 02/01/2016 by Brent Lau MD at [facility] 161.012 / - / - Screw Bone 4.2mm 12mm Xtend Spine N/A: Neck UNI DENTIFI Variable Angle Self Drill ED MFG Implanted: Qty: 4 on 02/01/2016 by Brent Lau MD at [facility] Procedures Comments Procedure Name Priority Date/Time Associated Diag nosis T SPINE AP & LAT 2 VIEWS Routine 07/06/2019 Thora cic spine pain 1:33 PM CDT FLUORO GUIDANCE FOR INJ Routine 06/09/2019 Sacroi liitis (HCC) RAD 2:22 PM SHIP FASTENER SD FLUOROSCOPIC GUIDANCE Routine 06/09/2019 Troch anteric bursitis of NEEDLE PLACEMENT ADD ON 2:00 PM SHIP FASTENER both hips SD ARTHROCENTESIS Routine 06/09/2019 Trochanteric bursitis of ASPIR&/INJ MAJOR JT/BURSA 2:00 PM SHIP FASTENER both hips W/O US SD INJECT SI JOINT Routine 06/09/2019 Sacroiliiti s (HCC) ARTHRGRPHY&/ANES/STEROID 2:00 PM SHIP FASTENER W/KANDACE from Last 3 Months Results * T SPINE AP & LAT 2 VIEWS (07/06/2019 1:33 PM CDT) Specimen Impressions Performed At Findings/Impression: [facility] RESULTS 1. Unremarkable thoracic spine other than mild disc degeneration at several levels of the thoracic spine. 2. There is normal alignment of thora cic spine. There are no fractures or bone lesions. 3. ACDF changes at C6-C7 with interbo dy fusion and anterior plate-screw fixation in normal position. This is in completely evaluated. Finalized by Collins Hein M.D. on 2019 2:26 PM. Dictated by Collins Hein M.D. on 07/06/2019 2:24 PM. Narrative Performed At T SPINE AP & LAT 2 VIEWS [facility] RESULTS Clinical Indication: thoracic spine deanne n and left shoulder blade pain right near lateral part of thoracic spine. Comparison: None Procedure Note Interface, Radiant Results - 07/06/2019 2:29 PM CDT T SPINE AP & LAT 2 VIEWS Clinical Indication: thoracic spine pain and left shoulder blade pain right near lateral part of thoracic spine. Comparison: None IMPRESSION Findings/Impression: 1. Unremarkable thoracic spine other th an mild disc degeneration at several levels of the thoracic spine. 2. There is normal alignment of thoraci c spine. There are no fractures or bone lesions. 3. ACDF changes at C6-C7 with interbody fusion and anterior plate-screw fixation in normal position. This is incompletely evaluated. Finalized by Collins Hein M.D. on 07/06/2019 2:26 PM. Dictated by Collins Heni M.D. on 07/06/2019 2:24 PM. Performing Organization Address [facility] Number [facility] RES[facility] * FLUORO GUIDANCE FOR INJ RAD (06/09/2019 2:22 PM SHIP FASTENER) Specimen Narrative Performed At This order has been auto finalized and does not conta in a result. [facility] Performing Organization Address City/[facility] Ph one Number [facility] * [facility] SPINE SI JOINT INJECT ANESTH/STEROID PROC (06/09/2019 2:00 PM SHIP FASTENER) Narrative Performed At Maninder Vargas MD 06/09/2019 2:36 PM OTHER OU TSIDE LAB [facility] SPINE SI JOINT INJECT ANESTH/SOLOMON ROID PROC Location: sacroiliac joint R sacroiliac joint (bilateral sacroiliac joint) Consent: Consent obtained: written Consent given by: patient Risks discussed: nerve damage, infectio n, hyperglycemia, damage to surrounding structures, bleeding, soft tissue reaction, pain and skin discoloration Alternatives discussed: alternative kitty atment, delayed treatment, no treatment and referral Discussed with patient the purpose of t he treatment/procedure, other ways of treating my condition, including no treatment/ procedure and the risks and benefits of the alternatives. Sharla vinnie has decided to proceed with treatment/procedure. [place] Protocol: Relevant documents: relevant documents present and verified Test results: test results available an d properly labeled Imaging studies: imaging studies availa ble Required items: required blood products , implants, devices, and special equipment available Site marked: the operative site was kathryn barrientos Patient identity confirmed: Patient nitish ntify confirmed verbally with patient. Time out: Immediately prior to procedur e a "time out" was called to verify the correct patient, procedure, equipme nt, direct support professional caregiver and site/side marked as required Procedures Details: Indications: pain Prep: 2% chlorhexidine Local anesthetic: subcutaneous lidocain e 1% 10mg/mL Guidance: fluoroscopy Needle size: 25 G Approach: posterior Patient tolerance: Patient tolerated th e procedure well with no immediate complications. Pressure was applied, an d hemostasis was accomplished. Performing Organization Address City/State/[facility] Ph one Number OTHER OUTSIDE LAB * [facility] SPINE LARGE JOINT DRAIN/INJECT PROC: L greater trochanteric bursa (06/09/2019 2:00 PM SHIP FASTENER) Narrative Performed At Maninder Vargas MD 06/09/2019 2:36 PM OTHER OU TSIDE LAB [facility] SPINE LARGE JOINT DRAIN/INJECT P JERRICA: L greater trochanteric bursa Consent: Consent obtained: written Consent given by: patient Risks discussed: bleeding, damage to peters rrounding structures, hyperglycemia, infection, skin discolor ation, pain, soft tissue reaction and subcutaneous fat atrophy Alternatives discussed: alternative kitty atment, delayed treatment, no treatment and referral Discussed with patient the purpose of t he treatment/procedure, other ways of treating my condition, including no treatment/ procedure and the risks and benefits of the alternatives. Sharla b[place] has decided to proceed with treatment/procedure. [place] Protocol: Relevant documents: relevant documents present and verified Test results: test results available an d properly labeled Imaging studies: imaging studies availa ble Required items: required blood products , implants, devices, and special equipment available Site marked: the operative site was kathryn barrientos Patient identity confirmed: Patient nitish ntify confirmed verbally with patient. Time out: Immediately prior to procedur e a "time out" was called to verify the correct patient, procedure, equipme nt, direct support professional caregiver and site/side marked as required Procedures Details: Indications: pain Details:Prep: 2% chlorhexidine Local anesthetic: subcutaneous lidocain e 1% 10mg/mL 25 G needle, fluoroscopy-guided posterior approach Performing Organization Address City/State/[place] Ph one Number OTHER OUTSIDE LAB from Last 3 Months Insurance Type Payer Benefit Subscriber ID Effective Phone Address Plan / Dates Group [employer]NA MEDICAID AETNA xxxxxxxxxxx 2018-P [facility] (Home) [address] [place] [address] Advance Directives Patient Contractor Field Hauling Explanation Type Date Recorded Advance Directive/DPOA Date Inactivated Comments Code Status Date Activated 02/03/2016 3:07 PM Full Code 02/01/2016 2:47 PM Provider has discussed Code Status No, discussion no t w/Patient or Family? necessary based on Dx
--- OUTSIDE RECORDS SUMMARY | 2019-08-18 08:40 | XMS REPORT | Encounter Summary ---
Author Author [facility] Organization [facility] Address Unknown Phone Unavailable Care Team Providers Care Structurer Name Role Phone WilkesMonika goldsmith POWER SYSTEM DISPATCHER Unavailable Unavailable Attila Cleary MD Unavailable Daron Garcia MD Unavailable Ruab Salgado POWER SYSTEM DISPATCHER Unavailable Whitney Carrera RN Unavailable Unavailable Maninder [...] PCP Reason for Visit * Reason Comments Pain * Pain Authorization (Routine) Referred By Contact Referred To Contact Status Reason Specialty Diagnoses / Procedures Maninder Vargas MD [address] [place] [address] Bh Spn Pain Proc [address] [address] Closed Anesthesia Pain Diagnoses Sacroiliitis (HCC) P rocedures [facility] SPINE SI JOINT INJECT ANESTH/STEROID PROC Encounter Details Care Team Description Date Type Department Maninder Vargas MD [address] [facility] [place] [address] [phone] Sacroiliitis (HCC) (Primary Dx); Fibromyalgia; Trochanteric bursitis of left hip; Trochanteric bursitis of both hips 06/09/2019 Procedure visit [facility] [address] [address] Social History Date Tobacco Use Types Packs/Day [...] history available. documented as of this encounter Last Filed Vital Signs Reading Time Taken Comments Vital Sign 122/78 06/09/2019 2:41 PM GREENS LABORER Blood Pressure 90 06/09/2019 1:46 PM GREENS LABORER Pulse 36.7 C (98 F) 06/09/2019 1:46 PM GREENS LABORER Temperature 16 06/09/2019 1:46 PM GREENS LABORER Respiratory Rate 97% 06/09/2019 2:41 PM GREENS LABORER Oxygen Saturation - - Inhaled Oxygen Concentration 66.7 kg (147 lb) 06/09/2019 1:46 PM GREENS LABORER Weight 147.3 cm (4' 10") 06/09/2019 1:46 PM GREENS LABORER Height 30.72 06/09/2019 1:46 PM GREENS LABORER Body Mass Index documented in this encounter Functional Status Date of Assessment [...] impairment: No documented as of this encounter Patient Instructions * Patient Instructions* Anna Marie Roberts RN - 06/09/2019 2:00 PM GREENS LABORER Procedure Completed Today: Joint Injection BILAT SACROILIAC AND LEFT BURSA Important information following your procedure today: You may drive today 1. Pain relief may not be immediate. It is possible you may even experience an i ncrease in pain during the first 24-48 hours followed by a gradual decrease of y our pain. 2. Though the procedure is generally safe and complications are rare, we do ask that you be aware of any of the following: ? Any swelling, persistent redness, new bleeding, or drainage from the site of t he injection. ? You should not experience a severe headache. ? You should not run a fever over 101 F. ? New onset of sharp, severe back & or neck pain. ? New onset of upper or lower extremity numbness or weakness. ? New difficulty controlling bowel or bladder function after the injection. ? New shortness of breath. If any of these occur, please call to report this occurrence to a nurse at . If you are calling after 4:00 p.m., on weekends or holidays please call [phone] and ask to have the resident physician building construction ironworker for the physician p aged or go to your local emergency room. 3. You may experience soreness at the injection site. Ice can be applied at 20 m inute intervals. Avoid application of direct heat, hot showers or hot tubs today . 4. Avoid strenuous activity today. You may resume your regular activities and ex ercise tomorrow. 5. Patients with diabetes may see an elevation in blood sugars for 7-10 days aft er the injection. It is important to pay close attention to your diet, check you r blood sugars daily and report extreme elevations to the physician that treats your diabetes. 6. Patients taking a daily blood thinner can resume their regular dose this even ing. 7. It is important that you take all medications ordered by your pain physician. Taking medication as ordered is an important part of your pain care plan. If you cannot continue the medication plan, please notify the physician. Possible side effects to steroids that may occur: ? Flushing or redness of the face ? Irritability ? Fluid retention ? Change in womens menses The following medications were used: Lidocaine , Bupivicaine , Triamcinolone and Contrast Dye NS LABORER documented in this encounter Progress Notes * Maninder Vargas MD - 06/09/2019 2:00 PM GREENS LABORER Immediate Post Procedure Note Date: 06/09/2019 Asia Story is a 38 y.o. y.o. female. : 1980 Attending Physician: Maninder Vargas MD Performing Provider: Maninder Vargas MD Procedure(s): Bilateral SI joint injection and left trochanteric bursa injection Consent: Consent obtained from patient. Risks and benefits discussed with patient. Time out performed: Consent obtained, correct patient verified, correct procedur e verified, correct site verified, patient marked as necessary. Indications: sacroiliitis and trochanteric bursitis Anesthesia: Local 5 mL 1% lidocaine without epinephrine Findings: None. Estimated Blood Loss: None/Negligible Specimen(s) Removed/Disposition: None Complications: None Patient Tolerated Procedure: Well Post-Procedure Condition: stable NS LABORER * Mali Holt RN - 06/09/2019 2:00 PM [facility] LAB[facility]ER Pain Procedure Plan Of Care Risk of injury related to procedure Patient identification, allergies verified, fall precautions implemented Risk of injury and impaired skin integrity Positioning devices applied as appropriate for procedure, patient transported [facility] staff assistance Management of Pain Pain assessment completed on arrival, PAR scoring following procedure and at dis charge, sedation administered as ordered, patient positioned for comfort Risk of anxiety related to procedure and disease process Patient education on procedure and expectations, provide coping support to patie nt, provide relaxation techniques Outcomes: The patient is free of injury during and following their procedure. Skin is intact and free of bruising. The patients pain is managed during their stay. Alleviation of patient anxiety exhibited. NS LABORER * Maninder Vargas MD - 06/09/2019 2:00 PM [facility] SP[facility] CENTER INTERVENTIONAL PAIN PROCEDURE HISTORY AND PHYSICAL Chief Complaint Patient presents with Neck - Pain HISTORY OF PRESENT ILLNESS: Ms. Story is a 38 yo female who presents for Bi lateral SI joint injections for sacroiliitis and left trochanteric bursa injecti on for trochanteric bursitis. Past Medical History: Diagnosis Date Anxiety Depression Essential hypertension Hepatitis C treated Immune disorder (HCC) rheumatoid arthritis Inflammatory arthritis Past Surgical History: Procedure Laterality Date TUBAL LIGATION 2010 IN ARTHROCENTESIS ASPIR&/INJ MAJOR JT/BURSA W/O US 11/25/2013 LIVER BIOPSY 2014 IN COLONOSCOPY FLX DX W/COLLJ SPEC WHEN PFRMD N/A 12/21/2015 COLONOSCOPY performed by Debby Oviedo MD at [facility] ENDO/GI CERVICAL FUSION N/A 02/01/2016 ANTERIOR CERVICAL 6-7 FUSION performed by Shay Prince MD [facility] IN BX/EXC LYMPH NODE OPEN SUPERFICIAL Left 06/18/2016 EXCISIONAL BIOPSY OF LEFT SUPRACLAVICULAR LYMPH NODE performed by Tito Portillo DO at [facility]/Per[facility] SECTION /2007 family history includes Cancer in her father and maternal grandmother; Cancer-[place] in her father; Cervical Cancer in her maternal grandmother and mother; Cirrh osis in her father and mother; Colon Polyps in her mother; Depression in her mot her; Diabetes in her mother; Heart Attack in her maternal grandfather and patern al grandmother; Heart Failure in her maternal grandfather. Social History Social History Marital status: Spouse name: N/A Number of children: N/A Years of education: N/A Occupational History Not on file. Social History Main Topics Smoking status: Former Smoker Packs/day: 0.50 Years: 14.00 Types: Cigarettes Quit date: 02/03/2012 Smokeless tobacco: Never Used Alcohol use No Drug use: No Comment: previous marijuana quit 1999 Sexual activity: Yes Partners: Male control/ protection: Surgical Other Topics Concern Not on file Social History Narrative No narrative on file No Known Allergies REVIEW OF SYSTEMS: Musculoskeletal: Positive for arthralgias, neck pain and neck stiffness. All other systems reviewed and are negative. PHYSICAL EXAM: Constitutional: She is oriented to person, place, and time and well-developed, w ell-nourished, and in no distress. HENT: Head: Normocephalic and atraumatic. Musculoskeletal: She exhibits tenderness. Lumbar back: She exhibits decreased range of motion, tenderness and pain. tenderness to palpation over bilateral L3-S1 facet joint/paraspinal areas as wel l as mild tenderness to palpation over right SI joint. pain with extension and f acet loading bilaterally. Tenderness to cervical spine bilaterally at the mid-l ower cervical regions, left greater than right with pain on lateral side bending and lateral rotation. Tenderness to palpation and noted myofascial tightness/s pasm over her cervical areas. No swelling appreciated in this area. Neurological: She is alert and oriented to person, place, and time. She has norm al sensation and normal strength. Gait normal. Gait normal. Skin: Skin is warm and dry. No rash noted. Psychiatric: Affect flat and she appears agitated today. Memory intact. Vitals reviewed. Vitals: 06/09/19 1346 BP: 126/88 Pulse: 90 Resp: 16 Temp: 36.7 C (98 F) SpO2: 98% IMPRESSION: 1. Sacroiliitis (HCC) [facility] SPINE SI JOINT INJECT ANESTH/STEROID PROC iohexoL (OMNIPAQUE-240) 240 mg/mL injection 2.5 mL bupivacaine PF (MARCAINE) 0.25 % injection 4 mL triamcinolone acetonide (KENALOG-40) injection 80 mg 2. Fibromyalgia HYDROcodone/acetaminophen (NORCO) 5/325 mg tablet 3. Trochanteric bursitis of left hip PLAN: Bilateral SI joint injections and left trochanteric bursa injection. NS LABORER documented in this encounter Procedure Notes * Maninder Vargas MD - 06/09/2019 2:00 PM GREENS LABORER Associated Order(s): [facility] SPINE LARGE JOINT DRAIN/INJECT PROC: L greater troch anteric bursa; [facility] SPINE SI JOINT INJECT ANESTH/STEROID PROC Post-Procedure Diagnose(s): Trochanteric bursitis of both hips; Sacroiliitis (HC C) Attending Surgeon: Maninder Vargas MD Anesthesia: Local Pre-Procedure Diagnosis: 1. Sacroiliitis (HCC) 2. Fibromyalgia 3. Trochanteric bursitis of left hip 4. Trochanteric bursitis of both hips Post-Procedure Diagnosis: 1. Sacroiliitis (HCC) 2. Fibromyalgia 3. Trochanteric bursitis of left hip 4. Trochanteric bursitis of both hips [facility] SPINE LARGE JOINT DRAIN/INJECT PROC: L greater trochanteric bursa Consent: Consent obtained: written Consent given by: patient Risks discussed: bleeding, damage to surrounding structures, hyperglycemia, infe ction, skin discoloration, pain, soft tissue reaction and subcutaneous fat atrop hy Alternatives discussed: alternative treatment, delayed treatment, no treatment a nd referral Discussed with patient the purpose of the treatment/procedure, other ways of kitty ating my condition, including no treatment/ procedure and the risks and benefits of the alternatives. Patient has decided to proceed with treatment/procedure. [place] Protocol: Relevant documents: relevant documents present and verified Test results: test results available and properly labeled Imaging studies: imaging studies available Required items: required blood products, implants, devices, and special equipmen t available Site marked: the operative site was marked Patient identity confirmed: Patient identify confirmed verbally with patient. Time out: Immediately prior to procedure a "time out" was called to verify the c orrect patient, procedure, equipment, support manager and site/side marked as requ ired Procedures Details: Indications: pain Details:Prep: 2% chlorhexidine Local anesthetic: subcutaneous lidocaine 1% 10mg/mL 25 G needle, fluoroscopy-guided posterior approach [facility] SPINE SI JOINT INJECT ANESTH/STEROID PROC Location: sacroiliac joint R sacroiliac joint (bilateral sacroiliac joint) Consent: Consent obtained: written Consent given by: patient Risks discussed: nerve damage, infection, hyperglycemia, damage to surrounding s tructures, bleeding, soft tissue reaction, pain and skin discoloration Alternatives discussed: alternative treatment, delayed treatment, no treatment a nd referral Discussed with patient the purpose of the treatment/procedure, other ways of kitty ating my condition, including no treatment/ procedure and the risks and benefits of the alternatives. Patient has decided to proceed with treatment/procedure. [place] Protocol: Relevant documents: relevant documents present and verified Test results: test results available and properly labeled Imaging studies: imaging studies available Required items: required blood products, implants, devices, and special equipmen t available Site marked: the operative site was marked Patient identity confirmed: Patient identify confirmed verbally with patient. Time out: Immediately prior to procedure a "time out" was called to verify the c orrect patient, procedure, equipment, support manager and site/side marked as requ ired Procedures Details: Indications: pain Prep: 2% chlorhexidine Local anesthetic: subcutaneous lidocaine 1% 10mg/mL Guidance: fluoroscopy Needle size: 25 G Approach: posterior Patient tolerance: Patient tolerated the procedure well with no immediate compli cations. Pressure was applied, and hemostasis was accomplished. Estimated blood loss: none or minimal Specimens: none Patient tolerated the procedure well with no immediate complications. Pressure w as applied, and hemostasis was accomplished. INTERVENTIONAL PAIN MANAGEMENT PROCEDURE REPORT Sacroiliac Joint Injection and Trochanteric Bursa Injection Date of Service: 06/09/2019 Procedure Title(s): 1. Bilateral sacroiliac joint injection 2. Left trochanteric bursa injection 3. Intraoperative fluoroscopy Attending Surgeon: Maninder Vargas MD Anesthesia: Local Anxiolysis No Procedural Sedation No Indications: Asia Story is a 38 y.o. female with a diagnosis of sacr oiliitis. The patient's history and physical exam were reviewed. The risks, bene fits and alternatives to the procedure were discussed, and all questions were an swered to the patient's satisfaction. The patient agreed to proceed, and written informed consent was obtained. Procedure in Detail: IV was started? No The patient was brought into the procedure room and placed in the prone position on the fluoroscopy table. Standard monitors were placed, and vital signs were o bserved throughout the procedure. The area of the low back and upper buttocks we re prepped with chlorhexidine and draped in a sterile manner. Strict aseptic te chnique was observed throughout the entire procedure. AP fluoroscopy was used to visualize the right sacroiliac joint. The fluoroscopi c beam was then obliqued until the anterior and posterior margins of the joint w ere aligned. The inferior margin of the joint was identified and marked. The ski n and subcutaneous tissues in the area were anesthetized with 1% lidocaine. A 25 -gauge, 3.5-inch spinal needle was advanced toward the identified point under fl uoroscopic guidance. Once the targeted point was reached and the joint space was entered, negative aspiration was confirmed, and 1ml of contrast was injected. T he joint space was appropriately outlined. Then, after negative aspiration, a solution consisting of 2 mL 0.25% bupivacaine and 0.5 mL of triamcinolone (40mg/mL) was easily injected. The needle was remov ed with a 1% lidocaine flush. The same procedure was repeated on the opposite side? Yes Attention was turned next to the left trochanteric bursa injection. AP fluorosc opy was used to visualize the left greater trochanter and marked. The skin and s ubcutaneous tissues in the area were anesthetized with 1% lidocaine. A 25-gauge, 3.5-inch spinal needle was advanced toward the identified point under fluorosco pic guidance until bone was contacted. The needle was then walked off laterally into the trochanteric bursa. Negative aspiration was confirmed and after this was confirmed, a solution consisting of 4 mL 0.25% bupivacaine and 1 mL of triam cinolone (40mg/mL) was easily injected. The needle was removed with a 1% lidocai ne flush. The patients back was cleaned and bandages were placed over the sites of need le insertion. Disposition: The patient tolerated the procedure well, and there were no apparen t complications. Vital signs remained stable througtout the procedure. The patie nt was taken to the recovery area where discharge instructions for the procedure were given. Estimated Blood Loss: minimal Specimens: none Complications: None. NS LABORER documented in this encounter Plan of Treatment Not on filedocumented as of this encounter Procedures Comments Procedure Name Priority Date/Time Associated Diag nosis IN INJECT SI JOINT Routine 06/09/2019 Sacroiliiti s (HCC) ARTHRGRPHY&/ANES/STEROID 2:00 PM GREENS LABORER W/KANDACE IN FLUOROSCOPIC GUIDANCE Routine 06/09/2019 Troch anteric bursitis of NEEDLE PLACEMENT ADD ON 2:00 PM GREENS LABORER both hips IN ARTHROCENTESIS Routine 06/09/2019 Trochanteric bursitis of ASPIR&/INJ MAJOR JT/BURSA 2:00 PM GREENS LABORER both hips W/O US documented in this encounter Results * [facility] SPINE LARGE JOINT DRAIN/INJECT PROC: L greater trochanteric bursa (06/09/2019 2:00 PM GREENS LABORER) Narrative Performed At Maninder Vargas MD 06/09/2019 [...] risks and benefits of the alternatives. Sharla nt has decided to proceed with treatment/procedure. [place] Protocol: Relevant documents: relevant documents present and [...] verify the correct patient, procedure, equipme nt, support manager and site/side marked as required Procedures Details: Indications: pain Details:Prep: 2% chlorhexidine Local anesthetic: subcutaneous lidocain e 1% 10mg/mL 25 G needle, fluoroscopy-guided posterior approach Performing Organization Address City/State/[facility] Ph one Number OTHER OUTSIDE LAB * [facility] SPINE SI JOINT INJECT ANESTH/STEROID PROC (06/09/2019 2:00 PM GREENS LABORER) Narrative Performed At Maninder Vargas MD 06/09/2019 [...] risks and benefits of the alternatives. Sharla nt has decided to proceed with treatment/procedure. [place] Protocol: Relevant documents: relevant documents present and [...] verify the correct patient, procedure, equipme nt, support manager and site/side marked as required Procedures Details: Indications: pain Prep: 2% chlorhexidine Local anesthetic: subcutaneous lidocain e 1% 10mg/mL Guidance: fluoroscopy Needle size: 25 G Approach: posterior Patient tolerance: Patient tolerated th e procedure well with no immediate complications. Pressure was applied, an d hemostasis was accomplished. Performing Organization Address [facility]/State[facility] one Number OTHER OUTSIDE LAB documented in this encounter Visit Diagnoses Diagnosis Sacroiliitis (HCC) Sacroiliitis, not elsewhere classified Fibromyalgia Mylagia and myositis, unspecified Trochanteric bursitis of left hip Enthesopathy of hip region Trochanteric bursitis of both hips Enthesopathy of hip region documented in this encounter Administered Medications Action Date Dose Rate Site Medication Order MAR Action 06/09/2019 2:18 PM GREENS LABORER 4 mL bupivacaine PF (MARCAINE) 0.25 % Given injection 4 mL 4 mL, Injection, ONCE, 1 dose, 06/09/19 at 1445 06/09/2019 2:18 PM GREENS LABORER 2.5 mL iohexoL (OMNIPAQUE-240) 240 mg/mL Given injection 2.5 mL 2.5 mL, Epidural, ONCE, 1 dose, 06/09/19 at 1445, NOTE: This is a HIGH ALERT Medication., 06/09/2019 2:17 PM GREENS LABORER 80 mg triamcinolone acetonide (KENALOG-40) Given injection 80 mg 80 mg, Epidural, ONCE, 1 dose, 06/09/19 at 1445 documented in this encounter
--- OUTSIDE RECORDS SUMMARY | 2019-08-18 08:40 | XMS REPORT | Encounter Summary ---
Author Author [facility] Organization [facility] Address Unknown Phone Unavailable Care Team Providers Care Marine Mammal Trainer Name Role Phone KellyMonika goldsmith PRINT SUPPORT SPECIALIST Unavailable Unavailable Attila Cleary MD Unavailable Daron [...] Oviedo MD Unavailable [place] DO PCP Encounter Details Care Team Description Date Type Department Maninder Vargas MD [address] [facility] [place] [address] 07/06/2019 [facility] [address] [facility] [address] [place] [address] Social History Date Tobacco Use Types Packs/Day [...] impairment: No documented as of this encounter Medications at Time of Discharge Start Date End Date Medication Sig Dispensed Refills 09/17/2017 amitriptyline-gabapentin- Apply 5 g 100 g 11 emu oil (bulk) in cream topically to base no.135 (bulk) affected area 4/4/10% topical three times creamIndications: daily. Fibromyalgia 01/10/2016 blood sugar diagnostic Use 1 Strip 120 Strip 3 test strip as directed daily before breakfast. Brand "One Touch". ICD code E16.2 hypoglycemia 01/10/2016 Blood-Glucose Meter misc "One Touch" 1 Each 0 meter for hypoglycemia. ICD code E16.2 07/07/2018 diazePAM (VALIUM) 5 mg Take one 2 tablet 0 tablet tablet 1 hour prior to MRI, may repeat x 1 prior to MRI if needed 05/05/2018 docusate (COLACE) 100 mg Take one 60 capsule 2 capsule capsule by mouth twice daily. 07/06/2019 gabapentin (NEURONTIN) Take two 180 capsule 3 300 mg capsules by capsuleIndications: mouth three Fibromyalgia times daily. 07/20/2019 HYDROcodone/acetaminophen Take 1 tablet 120 tablet 0 (NORCO) 5/325 mg by mouth tabletIndications: every 6-8 Fibromyalgia hours as needed for Pain 08/17/2019 HYDROcodone/acetaminophen Take 1 tablet 120 tablet 0 (NORCO) 5/325 mg by mouth tabletIndications: every 6-8 Fibromyalgia hours as needed for Pain 09/14/2019 HYDROcodone/acetaminophen Take 1 tablet 120 tablet 0 (NORCO) 5/325 mg by mouth tabletIndications: every 6-8 Fibromyalgia hours as needed for Pain 09/17/2017 hydroxychloroquine Take 1 tablet 60 tablet 1 (PLAQUENIL) 200 mg tablet by mouth twice daily. Take with food. 09/17/2017 meloxicam (MOBIC) 15 mg Take 1 tablet 90 tablet 3 tabletIndications: by mouth Inflammatory arthritis daily. 09/17/2017 senna/docusate Take 1 tablet 30 tablet 0 (SENOKOT-S) 8.6/50 mg by mouth tablet twice daily. Hold for loose stools. documented as of this encounter Plan of Treatment Not on filedocumented as of this encounter Procedures Comments Procedure Name Priority Date/Time Associated Diag nosis T SPINE AP & LAT 2 VIEWS Routine 07/06/2019 Thora cic spine pain 1:33 PM CDT documented in this encounter Results * T SPINE AP & LAT [...] on 07/06/2019 2:26 PM. Dictated by Collins Hein M.D. on 07/06/2019 2:24 PM. Performing Organization Address City/State/Zipcode Ph one Number [facility] RAD RESULTS documented in this encounter Visit Diagnoses Diagnosis Thoracic spine pain Pain in thoracic spine documented in this encounter
--- OUTSIDE RECORDS SUMMARY | 2019-08-18 08:40 | XMS REPORT ---
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 information no name (no phone) no organization name (no phone) 04-25-2017 Patient encounter no information no name (no phone) no organization name (no phone) 04-23-2017 Patient encounter no information no name (no phone) no organization name (no phone) NEGATED Patient encounter no information no name (no phone) no organization name 04-09-2017 (no phone) 06-05-2016 Patient encounter no information no name (no phone) no organization name - (no phone) 06-05-2016 04-10-2015 Patient encounter no information no name (no phone) no organization name (no phone) 04-08-2019 Patient encounter no information no name (no phone) no organization name procedure (no phone) 03-09-2019 Patient encounter no information no name (no phone) no organization name procedure (no phone) 03-05-2019 Patient encounter no information no name (no phone) no organization name procedure (no phone) 11-26-2018 Patient encounter no information no name (no phone) no organization name procedure (no phone) 10-20-2018 Patient encounter no information no name (no phone) no organization name procedure (no phone) 10-12-2018 Patient encounter no information no name (no phone) no organization name procedure (no phone) 05-15-2017 Patient encounter no information no name (no phone) no organization name - procedure (no phone) 06-16-2017 06-05-2016 Patient encounter no information no name (no phone) no organization name - procedure (no phone) 06-05-2016 06-03-2016 Patient encounter no information no name (no phone) no organization name procedure (no phone) 05-27-2016 Patient encounter no information no name (no phone) no organization name procedure (no phone) 05-23-2016 Patient encounter no information no name (no phone) no organization name procedure (no phone) 05-13-2016 Patient encounter no information no name (no phone) no organization name procedure (no phone) 05-01-2016 Patient encounter no information no name (no phone) no organization name procedure (no phone) 04-10-2015 Patient encounter no information no name (no phone) no organization name procedure (no phone) Patient encounter no information no name (no phone) no organ ization name procedure (no phone) 04-20-2019 Telephone encounter no information JORGE LUISSUSAN CONTRERAS (no [facility] - phone) (no phone) 04-20-2019 - 04-20-2019 03-11-2019 Telephone encounter no information MIKI GOYO ( no [facility] - phone) (no phone) 03-11-2019 - 03-11-2019 Medical Equipment The data below is from unstructured sourcesNo Medical Equipment Information available Payers Normalized Payer Value Unknown no information ([id number]) Evaluation note Note Type Note Facility Evaluation No Assessments Information Available A scension note [facility] ([id number]) History general Narrative - Reported Note Type Note Facility History general Narrative - Reported Type Medical HBP History Medical arthritis History Medical fribromyalgia History Surgical neck surgery-cervical fusion 01/2016 History Surgical Lymph node removal 05/2016 History [facility] ([id number]) Advance Directives Directive Response Recor ded Date/Time Advance Directives No 5:33am Health Care Power of Sales Trader No 03/02/12 5:33am Organ Donor No 03/02/12 5:33am Advance Directive Response Recorded Date/Time Advance Directives No No [email or web address] 3:35pm Health Care Power of Sales Trader No March 04, 2019 3:35pm Organ Donor No March 04, 2019 3:35pm Resuscitation Status Full Code March 04, 2019 3:35pm Discharge Instructions No hospital discharge instructions. Summary Purpose eClinicalWorks SubmissioneClinicalWorks Submission Chief Complaint and Reason for Visit Chief Complaint General Problems/Black n Reason for Visit [id number] Additional Source Comments This clinical document has been generated using [employer] software that has been certified by the Office of the National Coordinator for Health Information Technology (ONC [id number].[id number]) and the National Committee for Flight Information Expediter (NCQA, as an eMeasure certified technology). FOR RECORDS PERTAINING TO PATIENTS WHO ARE OR HAVE BEEN ENROLLED IN A CHEMICAL D EPENDENCY/SUBSTANCE ABUSE PROGRAM, SOME INFORMATION MAY BE OMITTED. This clinica l summary was aggregated from multiple sources. Caution should be exercised in using it in the provision of clinical care. This summary normalizes information from multiple sources, and as a consequence, information in this document may ma terially change the coding, format and clinical context of patient data. In jesus tion, data may be omitted in some cases. CLINICAL DECISIONS SHOULD BE BASED ON T HE PRIMARY CLINICAL RECORDS. [employer] provides no warranty or guara ntee of the accuracy or completeness of information in this document.The followi ng information is based on time limited clinical information UNRECOGNIZED CONTENT PROVIDED BELOW FOR UNRECOGNIZED SECTION REASON FOR VISIT [id number] UNRECOGNIZED CONTENT PROVIDED BELOW FOR UNRECOGNIZED SECTION MEDICAL (GENERAL) HISTORY Type Description Date Medical History HBP Medical History arthritis Medical History fribromyalgia Surgical History neck surgery 01/2016 Surgical History Lymphnode removal 05/2016
--- OUTSIDE RECORDS SUMMARY | 2019-08-18 08:40 | XMS REPORT | Encounter Summary ---
Author Author [facility] Organization [facility] Address Unknown Phone Unavailable Care Team Providers Care Top Lift Nailer Name Role Phone KellyMonika MARIZOL Unavailable Unavailable Attila Cleary MD Unavailable Daron [...] Details Care Team Description Date Type Department 07/06/2019 Travel Social History Date Tobacco Use Types Packs/Day [...] impairment: No documented as of this encounter Plan of Treatment Not on filedocumented as of this encounter Visit Diagnoses Not on filedocumented in this encounter
--- OUTSIDE RECORDS SUMMARY | 2019-08-18 08:40 | XMS REPORT | Encounter Summary ---
Author Author [facility] Organization [facility] Address Unknown Phone Unavailable Care Team Providers Care Ball Racker Name Role Phone TangipahoaMonika goldsmith BATH DESIGN SALES CONSULTANT Unavailable Unavailable Attila Cleary MD Unavailable Daron [...] Unavailable Tamica Park DO PCP Reason for Referral * Pain Authorization (Routine) Referred By Contact Referred To Contact Status Reason Specialty Diagnoses / Procedures Maninder Vargas MD [address] [facility] [place] [address] Closed Diagnoses Trochanteric bursitis of both hips P rocedures [facility] SPINE LARGE JOINT DRAIN/INJECT PROC Reason for Visit * Reason Comments Follow Up 2 mo fuv Pain Encounter Details Care Team Description Date Type Department Maninder Vargas MD [address] [place] [address] [phone] Sacroiliitis (HCC) (Primary Dx); Cervical radicular pain; Osteoarthritis of spine with radiculopathy, cervical region; Hx of Inflammatory arthritis; Fibromyalgia; Trochanteric bursitis of both hips 04/27/2019 Office Visit [facility] [address] [facility] [address] [place] [address] Social History Date Tobacco Use Types Packs/Day [...] Signs Reading Time Taken Comments Vital Sign 142/96 04/27/2019 1:09 PM OVENS SUPERVISOR Blood Pressure 97 04/27/2019 1:09 PM OVENS SUPERVISOR Pulse - - Temperature - - Respiratory Rate 99% 04/27/2019 1:09 PM OVENS SUPERVISOR Oxygen Saturation - - Inhaled Oxygen Concentration 64 kg (141 lb) 04/27/2019 1:09 PM OVENS SUPERVISOR Weight 144.8 cm (4' 9") 04/27/2019 1:09 PM OVENS SUPERVISOR Height 30.51 04/27/2019 1:09 PM OVENS SUPERVISOR Body Mass Index documented in this encounter Functional Status Date of Assessment Functional Status Response 07/31/2018 Does the patient have a hearing impairment: No 07/31/2018 Does the patient have a visual impairment: No 07/31/2018 Does the patient have impaired ambulation: No 07/31/2018 Does the patient have an activity of daily living No (ADL) impairment: 07/31/2018 Does the patient have an instrumental activity of No daily living (IADL) impairment: Date of Assessment Cognitive Status Response 07/31/2018 Does the patient have a cognitive impairment: No documented as of this encounter Patient Instructions * Patient Instructions* Serena Motta MA - 04/27/2019 1:15 PM OVENS SUPERVISOR General Instructions: How to reach me: Please send a [facility]uklikt message to the [facility] or leave a voicemail for my nurse Shira at [phone]. Scheduling: Our scheduling phone number is [phone]. How to get a medication refill: Five business days before refill needed, madeleine sarkar use the [email or web address] Refill request or contact your pharmacy directly to request m edication refills. How to receive your test results: If you have signed up for valuklikt, you will receive your test results and messages from me this way. Otherwise, you will get a phone call or letter. If you are expecting results and have not heard from my office within 2 weeks of your testing, please send a [employer] message or call my office. Support for many chronic illnesses is available through [facility]: [email or web address] or [phone]. For questions on nights, weekends or holidays, call the spaghetti machine operator at , and ask for the doctor wildlife control operator for Anesthesia Pain Management. S SUPERVISOR documented in this encounter Progress Notes * Maninder Vargas MD - 04/27/2019 1:15 PM OVENS SUPERVISOR SP[facility] CENTER CLINIC NOTE SUBJECTIVE: Ms. Story is a 38-year-old female with inflammatory arthritis wh o presents today for follow up of her low back, bilateral SI joint, neck and arm pain. When she was last seen approximately 3 months ago she was under fairly s table control of her overall pain with a pain scale of 5/10.She denies any bowel or bladder incontinence. She has had persistent neck and arm pain and we sent her for updated imaging of the MRI of the cervical spine a few months back. Give n the findings and failure to improve with conservative management we referred h er back to spine surgery. She also had a CT scan of the cervical spine. We foll owed up with Dr. Valenzuela and he recommended a cervical transforaminal which she boone d done with my colleague and provided her with 100% relief for approximately 1 d ay. She has not heard anything back from Dr. Vlaenzuela about what the next steps ar e in this. She underwent a sacroiliac joint injection about 3 weeks ago which s he states is significantly improved her pain in her lumbar spine/sacroiliac area . She is also here today for follow-up and continues to take gabapentin, hydroc odone, and muscle relaxants. She does not think that Skelaxin was significantly beneficial than other muscle relaxants but would like to stay on it for the time being. Her left-sided SI joint pain as well as left hip pain have returned. She is here today to determine if she can be a candidate for procedure. Review of Systems Constitutional: Positive for fatigue. HENT: Negative. Eyes: Negative. Respiratory: Negative. Cardiovascular: Negative. Endocrine: Negative. Genitourinary: Negative. Musculoskeletal: Positive for arthralgias, back pain, neck pain and neck stiffne ss. Skin: Negative. Allergic/Immunologic: Negative. Neurological: Negative. Hematological: Negative. Psychiatric/Behavioral: Positive for sleep disturbance. All other systems reviewed and are negative. Current Outpatient Medications: arqirtvdqdlgf-hyvasfebox-vgc oil (bulk) in cream base no.135 (bulk) 4/4/10% topical cream, Apply 5 g topically to affected area three times daily., Disp: 1 00 g, Rfl: 11 blood sugar diagnostic test strip, Use 1 Strip as directed daily before [facility]. Brand "One Touch". ICD code E16.2 hypoglycemia, Disp: 120 Strip, Rfl: 3 Blood-Glucose Meter [facility], "One Touch" meter for hypoglycemia. ICD code E16. 2, Disp: 1 Each, Rfl: 0 diazePAM (VALIUM) 5 mg tablet, Take one tablet 1 hour prior to MRI, may rep eat x 1 prior to MRI if needed, Disp: 2 tablet, Rfl: 0 docusate (COLACE) 100 mg capsule, Take one capsule by mouth twice daily., D isp: 60 capsule, Rfl: 2 gabapentin (NEURONTIN) 300 mg capsule, Take two capsules by mouth three danay es daily., Disp: 180 capsule, Rfl: 3 HYDROcodone/acetaminophen (NORCO) 5/325 mg tablet, Take 1 tablet by mouth e very 6-8 hours as needed for Pain, Disp: 120 tablet, Rfl: 0 hydroxychloroquine (PLAQUENIL) 200 mg tablet, Take 1 tablet by mouth twice daily. Take with food., Disp: 60 tablet, Rfl: 1 meloxicam (MOBIC) 15 mg tablet, Take 1 tablet by mouth daily., Disp: 90 tab let, Rfl: 3 metaxalone(+) (SKELAXIN) 800 mg tablet, Take one-half tablet to one tablet by mouth three times daily as needed for Pain., Disp: 90 tablet, Rfl: 3 senna/docusate (SENOKOT-S) 8.6/50 mg tablet, Take 1 tablet by mouth twice d aily. Hold for loose stools., Disp: 30 tablet, Rfl: 0 No Known Allergies Physical Exam Constitutional: She is oriented to person, place, [...] areas. No swelling appreciated in this area. Left-sided sacroiliac joint pain to palpation. Positive Dharmesh, David's and Gaenslen's. Pain to palpation over the left greater trochanter. Neurological: She is alert and oriented to person, place, and time. She has norm al sensation and normal strength. Gait normal. Gait normal. Skin: Skin is warm and dry. No rash noted. Psychiatric: Affect flat and she appears agitated today. Memory intact. Vitals reviewed. Vitals: 04/27/19 1309 BP: (!) 142/96 Pulse: 97 SpO2: 99% Weight: 64 kg (141 lb) Height: 144.8 cm (57") Oswestry Total Score:: 54 Pain Score: Five Body mass index is 30.51 kg/m. IMPRESSION: 1. Sacroiliitis (HCC) 2. Cervical radicular pain 3. Osteoarthritis of spine with radiculopathy, cervical region 4. Hx of Inflammatory arthritis 5. Fibromyalgia PLAN: This is a very pleasant 38-year-old female who presents today for follow-u p of chronic pain syndrome including the above-mentioned diagnoses. She current ly has a worsening of her left-sided sacroiliitis as well as what appears to be left trochanteric bursitis. We can get these procedures done for her at her ear liest convenience. We will continue all of her multimodal analgesia which inclu garrett gabapentin, Skelaxin, and hydrocodone. She has shown no evidence of opioid aberrant behaviors, is able to perform all of her activities of daily living wit hout assistance, and is compliant with all recommended treatments and follows. We will see her back in clinic in 2 months time. S SUPERVISOR documented in this encounter Plan of Treatment Order Schedule Name Type Priority Associated Diag noses 3 Occurrences starting 04/27/2019 until 04/27/2020, 1 completed [facility] SPINE LARGE JOINT Procedures Routine Troch anteric bursitis of DRAIN/INJECT PROC both hips documented as of this encounter Results * [facility] SPINE LARGE JOINT DRAIN/INJECT PROC: L greater trochanteric bursa (06/09/2019 2:00 PM OVENS SUPERVISOR) Narrative Performed At Maninder Vargas MD 06/09/2019 [...] the risks and benefits of the alternatives. Patie nt has decided to proceed with treatment/procedure. [place] Protocol: Relevant documents: relevant documents present and [...] verify the correct patient, procedure, equipme nt, database support and site/side marked as required Procedures Details: Indications: pain Details:Prep: 2% chlorhexidine Local anesthetic: subcutaneous lidocain e 1% 10mg/mL 25 G needle, fluoroscopy-guided posterior approach Performing Organization Address [facility] OTHER OUTSIDE LAB documented in this encounter Visit Diagnoses Diagnosis Sacroiliitis (HCC) Sacroiliitis, not elsewhere classified Cervical radicular pain Brachial neuritis or radiculitis nos Osteoarthritis of spine with radiculopa thy, cervical region Hx of Inflammatory arthritis Unspecified inflammatory polyarthropath y Fibromyalgia Mylagia and myositis, unspecified Trochanteric bursitis of both hips Enthesopathy of hip region documented in this encounter
--- OUTSIDE RECORDS SUMMARY | 2019-08-18 08:40 | XMS REPORT | Encounter Summary ---
Author Author [facility] Organization [facility] Address Unknown Phone Unavailable Care Team Providers Care Electrical Checkout Mechanic Name Role Phone KellyMonika goldsmith CUSTOMER ENGAGEMENT MANAGER Unavailable Unavailable Attila Cleary MD Unavailable Daron [...] PCP Reason for Visit * Reason Comments Prior Authorization Encounter Details Care Team Description Date Type Department Shira Ponce, machine buffer 02/23/2019 Telephone [facility] [address] [address] Social History Date Tobacco Use Types Packs/Day [...] encounter Miscellaneous Notes * Telephone Encounter - Shira Ponce RN - 02/23/2019 12:50 PM SECURITY OPERATIONS CENTER ANALYST Pt reports that hydrocodone needs PA. Have not received notice from pharmacy. PA completed through [employer]. PA approved. Attempted to leave message but mail box full. RITY OPERATIONS CENTER ANALYST documented in this encounter Plan of Treatment Not on filedocumented as of this encounter Visit Diagnoses Not on filedocumented in this encounter
--- OUTSIDE RECORDS SUMMARY | 2019-08-18 08:40 | XMS REPORT | Encounter Summary ---
Author Author [facility] Organization [facility] Address Unknown Phone Unavailable Care Team Providers Care Foundry Finisher Name Role Phone KellyMonika goldsmith JUDGE Unavailable Unavailable Attila Cleary MD Unavailable Daron [...] Park DO PCP Reason for Referral * Radiology Services (Routine) Referred By Contact Referred To Contact Status Reason Specialty Diagnoses / Procedures Maninder Vargas MD [address] [place] [address] New Request Radiology Diagnoses Sacroiliitis (HCC) P rocedures [facility] FOR INJ RAD Encounter Details Care Team Description Date Type Department Maninder Vargas MD [address] [place] [address] Sacroiliitis (HCC) (Primary Dx) 05/28/2019 Orders Only [facility] [address] [address] Social History Date Tobacco Use Types Packs/Day [...] Not on filedocumented as of this encounter Results * [facility] FOR INJ RAD (06/09/2019 2:22 PM DREDGE OPERATOR) Specimen Narrative Performed At This order has been auto finalized and does not conta in a result. [facility] Performing Organization Address City/State/Zipcode Ph one Number [facility] documented in this encounter Visit Diagnoses Diagnosis Sacroiliitis (HCC) Sacroiliitis, not elsewhere classified documented in this encounter
--- OUTSIDE RECORDS SUMMARY | 2019-08-18 08:40 | XMS REPORT | Encounter Summary ---
Author Author [facility] Organization [facility] Address Unknown Phone Unavailable Care Team Providers Care Maintenance Construction Helper Name Role Phone KellyMonika MARIZOL Unavailable Unavailable [...] MA Unavailable Unavailable Taylor Covarrubias Unavailable Unavailable Shya Prince MD Unavailable Unavailable Shira Suazo RN Unavailable Unavailable Lupe Henley RN Unavailable Unavailable Debby Oviedo MD Unavailable Tamica Park DO PCP Reason for Visit * Reason Comments Follow Up 2 mo fuv Pain Encounter Details Care Team Description Date Type Department Maninder Vargas MD [address] [place] [address] Hx of Inflammatory arthritis (Primary Dx ); Chronic bilateral low back pain without sciatica; Pain of both hip joints; Encounter for long-term (current) use of high-risk medication; Fibromyalgia; Osteoarthritis of spine with radiculopathy, cervical region; Thoracic spine pain 07/06/2019 Office Visit [facility] [address] [facility] [address] [place] [address] Social History Date Tobacco Use Types Packs/Day [...] Pressure 67 07/06/2019 1:01 PM CDT Pulse - - Temperature - - Respiratory Rate 100% 07/06/2019 1:01 PM CDT Oxygen Saturation - - Inhaled Oxygen Concentration 68 kg (150 lb) 07/06/2019 1:01 PM CDT Weight 147.3 cm (4' 10") 07/06/2019 1:01 PM CDT Height 31.35 07/06/2019 1:01 PM CDT Body Mass Index documented in this encounter [...] * Patient Instructions* Serena Motta MA - 07/06/2019 12:45 PM CDT General Instructions: How to reach me: Please send a Chartboost message to the [facility] or leave a voicemail for my nurse Génesis at [phone]. Scheduling: Our scheduling phone number is [phone]. How to get a medication refill: Five business days before refill needed, madeleine sarkar use the BroadLighthart Refill request or contact your pharmacy directly to request m edication refills. How to receive your test results: If you have signed up for MyChart, you will receive your test results and messages from me this way. Otherwise, you will get a phone call or letter. If you are expecting results and have not heard from my office within 2 weeks of your testing, please send a Chartboost message or call my office. Support for many chronic illnesses is available through [facility]: [email or web address] or [phone]. For questions on nights, weekends or holidays, call the coal tower operator at [phone], and ask for the doctor occupational psychologist for Anesthesia Pain Management. documented in this encounter Progress Notes * Maninder Vargas MD - 07/06/2019 12:45 PM CDT [facility] CENTER CLINIC NOTE SUBJECTIVE: Ms. Story is a 38-year-old female with inflammatory arthritis wh o presents today for follow up of her low back, bilateral SI joint, neck and arm pain. When she was last seen approximately 3 months ago she was having worseni ng of her bilateral sacroiliac as well as left trochanteric bursa areas. We per formed an injection of these areas since she was last seen. Since that time she has had significant improvement in these areas but continues to report neck and arm pain and states her most significant pain is in her thoracic spine as well as her left shoulder blade area. She states the pain is where the left shoulder blade meets the left spinal area. She has not had any imaging but reports that this is so bad that it will stop her in her tracks and makes it difficult for h er to move. Denies any specific radiating pain around her rib cage or down her arm. She continues to take gabapentin, hydrocodone, and muscle relaxants. Ove rall her medications allow her a improved functioning and quality of life, she i s able to perform her activities of daily living without assistance, has shown n o evidence of opioid aberrant behaviors, and is compliant with all recommended t reatments and follow-ups. Review of Systems Constitutional: Negative. HENT: Negative. Eyes: Negative. Respiratory: Negative. Cardiovascular: Negative. Endocrine: Negative. Genitourinary: Negative. Musculoskeletal: Positive for arthralgias, back pain, myalgias, neck pain and ne ck stiffness. Skin: Negative. Allergic/Immunologic: Negative. Neurological: Positive for numbness and headaches. Hematological: Negative. Psychiatric/Behavioral: Positive for sleep disturbance. All other systems reviewed and are negative. Current Outpatient Medications: jhiflnkxgsnxg-psyanzicep-bbs oil (bulk) in cream base no.135 (bulk) 4/4/10% topical cream, Apply 5 g topically to affected area three times daily., Disp: 1 00 g, Rfl: 11 blood sugar diagnostic test strip, Use 1 Strip as directed daily before scott akfast. Brand "One Touch". ICD code E16.2 hypoglycemia, Disp: 120 Strip, Rfl: 3 Blood-Glucose Meter [facility], "One Touch" meter for hypoglycemia. ICD code [...] daily., Disp: 90 tab let, Rfl: 3 senna/docusate (SENOKOT-S) 8.6/50 mg tablet, [...] exhibits decreased range of motion, tenderness and pain to left shoulder blade and thoracic spine area. Neurological: She is alert and oriented to person, place, and time. She has norm al sensation and normal strength. Gait normal. Gait normal. Skin: Skin is warm and dry. No rash noted. Psychiatric: Affect flat and she appears agitated today. Memory intact. Vitals reviewed. Vitals: 07/06/19 1301 BP: (!) 141/84 Pulse: 67 SpO2: 100% Weight: 68 kg (150 lb) Height: 147.3 cm (58") PainSc: Five Oswestry Total Score:: 54 Pain Score: Five Body mass index is 31.35 kg/m. IMPRESSION: 1. Hx of Inflammatory arthritis 2. Chronic bilateral low back pain without sciatica 3. Pain of both hip joints 4. Encounter for long-term (current) use of high-risk medication 5. Fibromyalgia 6. Osteoarthritis of spine with radiculopathy, cervical region PLAN: This is a very pleasant 38-year-old female who presents today for follow-u p of chronic pain due to a variety of issues. At this time it appears her sacro iliac and trochanteric bursa are greatly improved but as for right now the signi ficant pain is in her left shoulder blade and thoracic area. Given her increase d risk of side effects due to steroid use as well as immunosuppressive state, I am going to order an x-ray of the thoracic spine area to rule out any type of co mpression fracture or other issue. For now depending on the results of this we may need further imaging. We will continue her medications at their current dos ages as they do provide her good relief and she is able to function. She has be en highly compliant and we will refill her for 3 months. Due to the COVID-19 pa ndemic we will likely anticipate seeing her back in clinic in 3 months time but can anticipate being in touch with her in the interim about her imaging results and see her sooner or order other imaging if need be. She was in understanding and agreement the plan as laid forth. She will contact us in the interim if she has any questions or concerns. documented in this encounter Plan of Treatment Not on filedocumented as of this encounter Results * T SPINE AP [...] documented in this encounter Visit Diagnoses Diagnosis Hx of Inflammatory arthritis Unspecified inflammatory polyarthropath y Chronic bilateral low back pain without sciatica Pain of both hip joints Encounter for long-term (current) use o f high-risk medication Encounter for long-term (current) use o f other medications Fibromyalgia Mylagia and myositis, unspecified Osteoarthritis of spine with radiculopa thy, cervical region Thoracic spine pain Pain in thoracic spine documented in this encounter
--- OUTSIDE RECORDS SUMMARY | 2019-08-18 08:40 | XMS REPORT | Encounter Summary ---
Author Author [facility] Organization [facility] Address Unknown Phone Unavailable Care Team Providers Care Development Technologist Name Role Phone KellyMonika goldsmith BUILDING ASSOCIATE Unavailable Unavailable Attila Cleary MD Unavailable Daron [...] Specialty Diagnoses / Procedures Maninder Vargas MD [address] [place] [address] New Request Radiology Diagnoses Sacroiliitis (HCC) P rocedures FLUORO GUIDANCE FOR INJ RAD Reason for Visit * Radiology Services (Routine) Referred By Contact Referred To Contact Status Reason Specialty Diagnoses / Procedures Maninder Vargas MD [address] [facility] [place] [address] New Request Radiology Diagnoses Sacroiliitis (HCC) P rocedures FLUORO GUIDANCE FOR INJ RAD Encounter Details Care Team Description Date Type Department Maninder Vargas MD [address] [facility] [place] [address] [phone] 06/09/[address] [facility] [address] [address] Social History Date Tobacco Use Types Packs/Day [...] 2 capsule capsule by mouth twice daily. 09/17/2017 hydroxychloroquine Take 1 tablet 60 tablet 1 (PLAQUENIL) 200 mg tablet by mouth twice daily. Take with food. 09/17/2017 meloxicam (MOBIC) 15 mg Take 1 tablet 90 tablet 3 tabletIndications: by mouth Inflammatory arthritis daily. 09/17/2017 senna/docusate Take 1 tablet 30 tablet 0 (SENOKOT-S) 8.6/50 mg by mouth tablet twice daily. Hold for loose stools. 04/27/2019 07/06/2019 gabapentin (NEURONTIN) Take two 180 capsule 3 300 mg capsules by capsuleIndications: mouth three Fibromyalgia times daily. 06/22/2019 07/06/2019 HYDROcodone/acetaminophen Take 1 tablet 120 tablet 0 (NORCO) 5/325 mg by mouth tabletIndications: every 6-8 Fibromyalgia hours as needed for Pain documented as of this encounter Plan of Treatment Not on filedocumented as of this encounter Procedures Comments Procedure Name Priority Date/Time Associated Diag nosis FLUORO GUIDANCE FOR INJ Routine 06/09/2019 Sacroi liitis (HCC) RAD 2:22 PM DREDGE ENGINEER documented in this encounter Results * FLUORO GUIDANCE FOR INJ RAD (06/09/2019 2:22 PM DREDGE ENGINEER) Specimen Narrative Performed At This order has been auto finalized and does not conta in a result. [facility] Performing Organization Address City/State/Zipcode Ph one Number [facility] documented in this encounter Visit Diagnoses Diagnosis Sacroiliitis (HCC) Sacroiliitis, not elsewhere classified documented in this encounter
--- OUTSIDE RECORDS SUMMARY | 2019-08-18 08:40 | XMS REPORT | Encounter Summary ---
Author Author [facility] Organization [facility] Address Unknown Phone Unavailable Care Team Providers Care Auto Top Mechanic Name Role Phone KellyMonika COMMERCIAL HVAC SERVICE TECHNICIAN Unavailable Unavailable Attila Cleary MD Unavailable [...] Unavailable Unavailable Shay Prince MD Unavailable Unavailable Ebony Suazo RN Unavailable Unavailable Lupe Henley RN Unavailable Unavailable Debby Oviedo MD Unavailable Tamica Park DO PCP Reason for Referral * Pain Authorization (Routine) Referred By Contact Referred To Contact Status Reason Specialty Diagnoses / Procedures Maninder Vargas MD [address] [place] [address] [facility] [address] [address] Closed Anesthesia Pain Diagnoses Sacroiliitis (HCC) P rocedures [facility] SPINE SI JOINT INJECT ANESTH/STEROID PROC Reason for Visit * Reason Comments Pain Encounter Details Care Team Description Date Type Department Ebony Lua RN Pain 04/02/[address] [address] Social History Date Tobacco Use Types Packs/Day [...] as of this encounter Miscellaneous Notes * Addendum Note - Ebony Lua RN - 04/20/2019 2:00 PM MARINE EQUIPMENT DESIGN ENGINEER Addended by: EBONY LUA on: 04/20/2019 02:00 PM Modules accepted: Orders NE EQUIPMENT DESIGN ENGINEER * Telephone Encounter - Ebony Lua RN - 04/02/2019 4:40 PM MARINE EQUIPMENT DESIGN ENGINEER Patient c/o renewed left hip pain. Hip nearly gave out then has been in pain sin ce. Route to Dr. Vargas. Clinic visit 04/27. NE EQUIPMENT DESIGN ENGINEER documented in this encounter Plan of Treatment Not on filedocumented as of this encounter Results * [facility] SPINE SI JOINT INJECT ANESTH/STEROID PROC (06/09/2019 2:00 PM MARINE EQUIPMENT DESIGN ENGINEER) Narrative Performed At Maninder Vargas MD 06/09/2019 [...] nt has decided to proceed with treatment/procedure. [place] Protocol: Relevant documents: relevant documents present and verified Test results: test results available an d properly labeled Imaging studies: imaging studies availa ble Required items: required blood products , implants, devices, and special equipment available Site marked: the operative site was kathryn karenchristiano Patient identity confirmed: Patient nitish ntify confirmed verbally with patient. Time out: Immediately prior to procedur e a "time out" was called to verify the correct patient, procedure, equipme nt, faculty support coordinator and site/side marked as required Procedures Details: Indications: pain Prep: 2% chlorhexidine Local anesthetic: subcutaneous lidocain e 1% 10mg/mL Guidance: fluoroscopy Needle size: 25 G Approach: posterior Patient tolerance: Patient tolerated th e procedure well with no immediate complications. Pressure was applied, an d hemostasis was accomplished. Performing Organization Address City/State/Zipcode Ph one Number OTHER OUTSIDE LAB documented in this encounter Visit Diagnoses Diagnosis Sacroiliitis (HCC) Sacroiliitis, not elsewhere classified documented in this encounter
--- OUTSIDE RECORDS SUMMARY | 2019-08-18 08:41 | XMS REPORT ---
Author Author Asia Arreguin Organization [facility] Address [address] [place] [address] Care Team Providers Care Top Taper Machine Name Role Phone CHRISTIANO Arreguin Unavailable PROBLEMS Type Condition ICD9-CM Code CGI64-MV Code Onset Dates Condition S tatus SNOMED Code Problem Fibromyalgia M79.7 Active 1585961 Problem Chronic pain syndrome G89.4 Active 931428059 Problem Gastroesophageal reflux disease, esophagitis pre sence not specified K21.9 Active [id number] ALLERGIES No Information ENCOUNTERS Encounter Location Date Diagnosis [place] [id number] [address] Mar, [facility] [address] [address] Mar, Cervical lymphadenopathy R59.0 ; Gastroe sophageal reflux disease, esophagitis presence not specified K21.9 ; Chronic pain syndrome G89.4 ; Fibromyalgia M79.7 and Cervical spine arthritis M47.812 [facility] [address] [place] [id number] [place] [address] Feb, [facility] [address] [address] Feb, Lump on neck R22.[address] [facility] [address] [facility] [id number] [place] [address] Feb, Lump on neck R22.1 [facility] [address] [id number] [place] [id number] Jun, Dental examination Z01.20 [facility] [id number] [place] [address] Jan, Encounter for immunization Z23 [facility] [id number] [place] [address] 14 Jul, 2014 [facility] [address] [id number] [place] [address] Jul, [facility] [address] [id number] [place] [address] Feb, [facility] [address] [id number] [place] [address] Feb, [facility] [address] [id number] [place] [address] May, [facility] [address] [id number] [place] [address] May, [facility] [address] [id number] [place] [address] Apr, [facility] [address] [place] [id number] [place] [address] Apr, [facility] [address] [id number] [place] [address] Mar, [facility] [address] [id number] [place] [address] Mar, [facility] [id number] [place] [address] Mar, [facility] [address] [id number] [place] [address] Mar, [facility] [address] [id number] [place] [address] Jun, [facility] [address] [id number] [place] [address] May, [facility] [id number] [place] [address] Apr, [facility] [address] [id number] [place] [address] Mar, [facility] [id number] [place] [address] Mar, [facility] [address] [id number] [place] [address] 14 Mar, 2012 [facility] [address] [id number] [place] [address] 14 Mar, 2012 [facility] [address] [id number] [place] [address] Mar, [facility] [address] [id number] [place] [address] Mar, [facility] [address] [id number] [place] [address] Feb, [facility] [address] [id number] [place] [address] Feb, [facility] [address] [id number] [place] [address] Feb, [facility] [address] [id number] [place] [address] Feb, [facility] [address] [id number] [place] [address] Feb, [facility] [id number] [place] [address] Feb, [facility] [address] [id number] [place] [address] Jan, [facility] [address] [id number] [place] [address] Jan, [facility] [address] [id number] [place] [address] Jan, [facility] [address] [id number] [place] [address] Jan, [facility] [address] [id number] [place] [address] Jan, [facility] [address] [id number] [place] [address] Jan, [facility] [address] [id number] [place] [address] Jan, [facility] [address] [id number] [place] [address] Jan, [facility] [address] [id number] [place] [address] Dec, [facility] [address] [id number] [place] [address] Dec, [facility] [address] [id number] [place] [address] Dec, [facility] [address] [id number] [place] [address] Nov, [facility] [address] [id number] [place] [address] Nov, [facility] [address] [id number] [place] [address] Nov, [facility] [address] [id number] [place] [address] Nov, [facility] [address] [id number] [place] [address] Oct, [facility] [address] [id number] [place] [address] Sep, [facility] [address] [id number] [place] [address] August, [facility] [address] [id number] [place] [address] August, [facility] [address] [id number] [place] [address] August, [facility] [address] [id number] [place] [address] August, [facility] [address] [id number] [place] [address] August, [facility] [address] [id number] [place] [address] Jul, [facility] [address] [id number] [place] [address] 26 Jul, 2011 [facility] [address] [id number] [place] [address] 17 Jul, 2011 [facility] [address] [id number] [place] [address] 16 Jul, 2011 [facility] [address] [id number] [place] [address] 16 Jul, 2011 [facility] [address] [id number] [place] [address] 09 Jul, 2011 [facility] [address] [id number] [place] [address] 02 Jul, 2011 [facility] [address] [id number] [place] [address] 22 Jun, 2011 [facility] [address] [id number] [place] [address] 15 Jun, 2011 [facility] [address] [id number] [place] [address] 08 Jun, 2011 [facility] [address] [id number] [place] [address] Apr, [facility] [address] [id number] [place] [address] 15 Mar, 2011 [facility] [address] [id number] [place] [address] 15 Mar, 2011 [facility] [address] [id number] [place] [address] 22 Feb, 2011 [facility] [address] [id number] [place] [address] 14 Feb, 2011 [facility] [address] [id number] [place] [address] Feb, [facility] [address] [id number] [place] [address] 11 Feb, 2011 [facility] [address] [id number] [place] [address] Feb, [facility] [address] [id number] [place] [address] Jan, [facility] [address] [id number] [place] [address] Jan, [facility] [id number] [place] [address] Jan, [facility] [id number] [place] [address] Jan, [facility] [id number] [place] [address] Jan, [facility] [id number] [place] [address] Jan, [facility] [id number] [place] [address] Jan, [facility] [id number] [place] [address] Feb, IMMUNIZATIONS No Known Immunizations SOCIAL HISTORY Never Assessed REASON FOR VISIT PLAN OF CARE VITAL SIGNS MEDICATIONS Unknown Medications RESULTS No Results PROCEDURES No Known procedures INSTRUCTIONS MEDICATIONS ADMINISTERED No Known Medications MEDICAL (GENERAL) HISTORY Type Description Date Medical History HBP Medical History arthritis Medical History fribromyalgia Surgical History neck surgery-cervical fusion 01/2016 Surgical History Lymph node removal 05/2016
--- OUTSIDE RECORDS SUMMARY | 2019-08-18 08:41 | XMS REPORT ---
Author Author Asia Reddy Doctor Organization [facility] Address Unknown Phone Unavailable Care Team Providers Care Recreation Professor Name Role Phone Migration, Doctor Unavailable Unavailable PROBLEMS Type Condition ICD9-CM Code [id number] Code Onset Dates Condition S tatus SNOMED Code Problem Contusion of unspecified site 924.9 Active 828276163 Problem Unspecified chronic hepatitis 571.40 Active 05703634 Problem Chronic hepatitis C without mention of hepatic coma 070.54 Active 308364005 Problem Neck sprain and strain 847.0 Active 304056322 Problem Pain in joint, forearm 719.43 Active 477111848 Problem Unspecified disorders of bursae and tendons in shoulde r region 726.10 Active 89905272 Problem Mastodynia 611.71 Active 17156367 ALLERGIES No Information ENCOUNTERS Encounter Location Date Diagnosis [facility] [address] [id number] [address] [place] [id number] 22 Jun, 2016 Dental examination Z01.20 [facility] [address] [id number] [address] [place] [address] Jan, Encounter for immunization Z 23 [facility] [address] [facility] [id number] [address] [place] [address] 14 Jul, 2014 [facility] [address] [facility] [id number] [address] [place] [address] Jul, [facility] [address] [facility] [id number] [address] [place] [address] Feb, [facility] [address] [facility] [id number] [address] [place] [address] Feb, [facility] [address] [facility] [id number] [address] [place] [address] May, [facility] [address] [facility] [id number] [address] [place] [address] May, [facility] [address] [id number] [address] [place] [address], [place] [address] Apr, [facility] [address] [id number] [address] [place] [address], [place] [address] Apr, [facility] [address] [id number] [address] [place] [address], [place] [address] Mar, [facility] [address] [id number] [address] [place] [address], [place] [address] Mar, [facility] [address] [id number] [address] [place] [address], [place] [address] Mar, [facility] [address] [id number] [address] [place] [address], [place] [address] Mar, [facility] [address] [id number] [address] [place] [address], [place] [address] Jun, [facility] [address] [id number] [address] [place] [address], [place] [address] May, [facility] [address] [id number] [address] [place] [address], [place] [address] Apr, [facility] [address] [id number] [address] [place] [address], [place] [address] Mar, [facility] [address] [id number] [address] [place] [address], [place] [address] Mar, [facility] [address] [id number] [address] [place] [address], [place] [address] Mar, [facility] [address] [id number] [address] [place] [address], [place] [address] Mar, [facility] [address] [id number] [address] [place] [address], [place] [address] Mar, [facility] [address] [id number] [address] [place] [address], [place] [address] Mar, [facility] [address] [id number] [address] [place] [address], [place] [address] Feb, [facility] [address] [id number] [address] [place] [address], [place] [address] Feb, [facility] [address] [id number] [address] [place] [address], [place] [address] Feb, [facility] [address] [id number] [address] [place] [address], [place] [address] Feb, [facility] [address] [id number] [address] [place] [address], [place] [address] Feb, [facility] [address] [id number] [address] [place] [address], [place] [address] Feb, [facility] [address] [id number] [address] [place] [address], [place] [address] Jan, [facility] [address] [id number] [address] [place] [address], [place] [address] Jan, [facility] [address] [id number] [address] [place] [address], [place] [address] Jan, [facility] [address] [id number] [address] [place] [address], [place] [address] Jan, [facility] [address] [id number] [address] [place] [address], [place] [address] Jan, [facility] [address] [id number] [address] [place] [address], [place] [address] Jan, [facility] [address] [id number] [address] [place] [address], [place] [address] Jan, [facility] [address] [id number] [address] [place] [address], [place] [address] 02 Jan, 2012 [facility] [address] [id number] [address] [place] [address], [place] [address] 18 Dec, 2011 [facility] [address] [id number] [address] [place] [address], [place] [address] Dec, [facility] [address] [id number] [address] [place] [address], [place] [address] Dec, [facility] [address] [id number] [address] [place] [address], [place] [address] Nov, [facility] [address] [id number] [address] [place] [address], [place] [address] Nov, [facility] [address] [id number] [address] [place] [address], [place] [address] Nov, [facility] [address] [id number] [address] [place] [address], [place] [address] Nov, [facility] [address] [id number] [address] [place] [address], [place] [address] Oct, [facility] [address] [id number] [address] [place] [address], [place] [address] Sep, [facility] [address] [id number] [address] [place] [address], [place] [address] August, [facility] [address] [id number] [address] [place] [address], [place] [address] August, [facility] [address] [id number] [address] [place] [address], [place] [address] August, [facility] [address] [id number] [address] [place] [address], [place] [address] August, [facility] [address] [id number] [address] [place] [address], [place] [address] August, [facility] [address] [id number] [address] [place] [address], [place] [address] Jul, [facility] [address] [id number] [address] [place] [address], [place] [address] Jul, [facility] [address] [id number] [address] [place] [address], [place] [address] Jul, [facility] [address] [id number] [address] [place] [address], [place] [address] 16 Jul, 2011 [facility] [address] [id number] [address] [place] [address], [place] [address] 16 Jul, 2011 [facility] [address] [id number] [address] [place] [address], [place] [address] 09 Jul, 2011 [facility] [address] [id number] [address] [place] [address], [place] [address] 02 Jul, 2011 [facility] [address] [id number] [address] [place] [address], [place] [address] 22 Jun, 2011 [facility] [address] [id number] [address] [place] [address], [place] [address] 15 Jun, 2011 [facility] [address] [id number] [address] [place] [address], [place] [address] 08 Jun, 2011 [facility] [address] [id number] [address] [place] [address], [place] [address] Apr, [facility] [address] [id number] [address] [place] [address], [place] [address] 15 Mar, 2011 [facility] [address] [id number] [address] [place] [address], [place] [address] Mar, [facility] [address] [id number] [address] [place] [address], [place] [address] 22 Feb, 2011 [facility] [address] [id number] [address] [place] [address], [place] [address] 14 Feb, 2011 [facility] [address] [id number] [address] [place] [address], [place] [address] Feb, [facility] [address] [id number] [address] [place] [address], [place] [address] 11 Feb, 2011 [facility] [address] [id number] [address] [place] [address], [place] [address] 03 Feb, 2011 [facility] [address] [id number] [address] [place] [address], [place] [address] Jan, [facility] [address] [id number] [address] [place] [address] Jan, [facility] [address] [id number] [address] [place] [address] Jan, [facility] [address] [id number] [address] [place] [address] Jan, [facility] [address] [id number] [address] [place] [address] Jan, [facility] [address] [id number] [address] [place] [address] Jan, [facility] [address] [id number] [address] [place] [address] Jan, [facility] [address] [id number] [address] [place] [address] Feb, IMMUNIZATIONS No Known Immunizations SOCIAL HISTORY Never Assessed REASON FOR VISIT [facility] [place] VITAL SIGNS MEDICATIONS Medication Instructions Dosage Frequency Start Date End Date Duration S tatus Carisoprodol 350 mg take 1 tablet by Oral route 3 time s per day Mar, Active Sulfasalazine 500 mg take 1 tablet (500 mg) by oral route 4 times per day after meals Nov, Active Diclofenac Sodium 75 mg 1 tablet by Oral route 2 times per dayPRNpc Jan, Active Ativan 0.5 mg 1 tablet by Oral route 2 times per dayPRN Mar, Active venlafaxine 75 mg take 1 tablet (75 mg ) by oral route 3 times per day with food Mar, Active Plaquenil 200 mg take 1 tablet (200 mg) by oral route once daily Nov, Active RESULTS No Results PROCEDURES No Known procedures INSTRUCTIONS MEDICATIONS ADMINISTERED No Known Medications MEDICAL (GENERAL) HISTORY Type Description Date Medical History HBP Medical History arthritis Medical History fribromyalgia Surgical History neck surgery 01/2016 Surgical History Lymphnode removal 05/2016
--- OUTSIDE RECORDS SUMMARY | 2019-08-18 08:41 | XMS REPORT ---
Author Author Asia MEJIA Organization [facility] Address [address] [place] [address] Care Team Providers Care Manager Philosophy Name Role Phone PATRICIO MEJIA Unavailable PROBLEMS Type Condition ICD9-CM Code WNS91-BB Code Onset Dates Condition S tatus SNOMED Code Problem Contusion of unspecified site 924.9 Active 759087669 Problem Unspecified chronic hepatitis 571.40 Active 23895898 Problem Chronic hepatitis C without mention of hepatic coma 070.54 Active 774497240 Problem Neck sprain and strain 847.0 Active 348099938 Problem Pain in joint, forearm 719.43 Active 738313003 Problem Unspecified disorders of bursae and tendons in shoulde r region 726.10 Active 23533710 Problem Mastodynia 611.71 Active 47697132 ALLERGIES No Information ENCOUNTERS Encounter Location Date Diagnosis [facility] [address] [id number] [address] [place] [id number] Jun, Dental examination Z01.20 [facility] [address] [facility] [id number] [address] [place] [address] Jan, Encounter for immunization Z 23 [facility] [address] [facility] [id number] [address] [place] [address] [address], 2014 [facility] [address] [facility] [id number] [address] [place] [address] Jul, [facility] [address] [facility] [id number] [address] [place] [address] Feb, [facility] [address] [facility] [id number] [address] [place] [address] Feb, [facility] [address] [facility] [id number] [address] [place] [address] May, [facility] [address] [id number] [address] [place] [address], [place] [address] May, [facility] [address] [id number] [address] [place] [address], [place] [address] Apr, [facility] [address] [id number] [address] [place] [address], [place] [address] Apr, [facility] [address] [id number] [address] [place] [address], [place] [address] Mar, [facility] [address] [id number] [address] [place] [address], [place] [address] Mar, [facility] [address] [id number] [address] [place] [address], [place] [address] Mar, [facility] [address] [id number] [address] [place] [address], [place] [address] Mar, [facility] [address] [id number] [address] [place] [address], [place] [address] Jun, [facility] [address] [id number] [address] [place] [address], [place] [address] May, [facility] [address] [id number] [address] [place] [address], [place] [address] Apr, [facility] [address] [id number] [address] [place] [address], [place] [address] Mar, [facility] [address] [id number] [address] [place] [address], [place] [address] Mar, [facility] [address] [id number] [address] [place] [address], [place] [address] Mar, [facility] [address] [id number] [address] [place] [address], [place] [address] Mar, [facility] [address] [id number] [address] [place] [address], [place] [address] Mar, [facility] [address] [id number] [address] [place] [address] Mar, [facility] [address] [id number] [address] [place] [address], [place] [address] Feb, [facility] [address] [id number] [address] [place] [address] Feb, [facility] [address] [id number] [address] [place] [address], [place] [address] Feb, [facility] [address] [id number] [address] [place] [address], [place] [address] Feb, [facility] [address] [id number] [address] [place] [address], [place] [address] Feb, [facility] [address] [id number] [address] [place] [address] Feb, [facility] [address] [id number] [address] [place] [address] Jan, [facility] [address] [id number] [address] [place] [address] Jan, [facility] [address] [id number] [address] [place] [address], [place] [address] Jan, [facility] [address] [id number] [address] [place] [address] Jan, [facility] [address] [id number] [address] [place] [address], [place] [address] Jan, [facility] [address] [id number] [address] [place] [address] Jan, [facility] [address] [id number] [address] [place] [address] Jan, [facility] [address] [id number] [address] [place] [address] Jan, [facility] [address] [id number] [address] [place] [address] 18 Dec, 2011 [facility] [address] [id number] [address] [place] [address], [place] [address] Dec, [facility] [address] [id number] [address] [place] [address], [place] [address] Dec, [facility] [address] [id number] [address] [place] [address], [place] [address] Nov, [facility] [address] [id number] [address] [place] [address], [place] [address] Nov, [facility] [address] [id number] [address] [place] [address], [place] [address] Nov, [facility] [address] [id number] [address] [place] [address], [place] [address] Nov, [facility] [address] [id number] [address] [place] [address], [place] [address] Oct, [facility] [address] [id number] [address] [place] [address], [place] [address] Sep, [facility] [address] [id number] [address] [place] [address], [place] [address] August, [facility] [address] [id number] [address] [place] [address], [place] [address] August, [facility] [address] [id number] [address] [place] [address], [place] [address] August, [facility] [address] [id number] [address] [place] [address], [place] [address] August, [facility] [address] [id number] [address] [place] [address], [place] [address] August, [facility] [address] [id number] [address] [place] [address], [place] [address] Jul, [facility] [address] [id number] [address] [place] [address], [place] [address] Jul, [facility] [address] [id number] [address] [place] [address], [place] [address] 17 Jul, 2011 [facility] [address] [id number] [address] [place] [address], [place] [address] 16 Jul, 2011 [facility] [address] [id number] [address] [place] [address], [place] [address] 16 Jul, 2011 [facility] [address] [id number] [address] [place] [address], [place] [address] 09 Jul, 2011 [facility] [address] [id number] [address] [place] [address], [place] [address] 02 Jul, 2011 [facility] [address] [id number] [address] [place] [address], [place] [address] 22 Jun, 2011 [facility] [address] [id number] [address] [place] [address], [place] [address] 15 Jun, 2011 [facility] [address] [id number] [address] [place] [address], [place] [address] 08 Jun, 2011 [facility] [address] [id number] [address] [place] [address], [place] [address] 05 Apr, 2011 [facility] [address] [id number] [address] [place] [address], [place] [address] Mar, [facility] [address] [id number] [address] [place] [address], [place] [id number] 15 Mar, 2011 [facility] [address] [id number] [address] [place] [address], [place] [id number] 22 Feb, 2011 [facility] [address] [id number] [address] [place] [address], [place] [id number] 14 Feb, 2011 [facility] [address] [id number] [address] [place] [address], [place] [id number] Feb, [facility] [address] [id number] [address] [place] [address], [place] [id number] Feb, [facility] [address] [id number] [address] [place] [address], [place] [id number] 03 Feb, 2011 [facility] [address] [id number] [address] [place] [phone] Jan, [facility] [address] [id number] [address] [place] [phone] Jan, [facility] [address] [id number] [address] [place] [phone] Jan, [facility] [address] [id number] [address] [place] [phone] Jan, [facility] [address] [id number] [address] [place] [phone] Jan, [facility] [address] [id number] [address] [place] [phone] Jan, [facility] [address] [id number] [address] [place] [phone] Jan, [facility] [address] [id number] [address] [place] [phone] Feb, IMMUNIZATIONS No Known Immunizations SOCIAL HISTORY Never Assessed REASON FOR VISIT PLAN OF CARE VITAL SIGNS MEDICATIONS No Known Medications RESULTS No Results PROCEDURES No Known procedures INSTRUCTIONS MEDICATIONS ADMINISTERED No Known Medications MEDICAL (GENERAL) HISTORY Type Description Date Medical History HBP Medical History arthritis Medical History fribromyalgia Surgical History neck surgery 01/2016 Surgical History Lymphnode removal 05/2016
--- OUTSIDE RECORDS SUMMARY | 2019-08-18 08:41 | XMS REPORT ---
Author Author Asia MEJIA Organization [facility] Address [address] [place] [address] Care Team Providers Care Nutrition And Dietetics Instructor Name Role Phone PATRICIO MEJIA Unavailable PROBLEMS Type Condition ICD9-CM Code VKD17-FR Code Onset Dates Condition S tatus SNOMED Code Problem Contusion of unspecified site 924.9 Active 591079632 Problem Unspecified chronic hepatitis 571.40 Active 79728027 Problem Chronic hepatitis C without mention of hepatic coma 070.54 Active 835126732 Problem Neck sprain and strain 847.0 Active 498043329 Problem Pain in joint, forearm 719.43 Active 695049463 Problem Unspecified disorders of bursae and tendons in shoulde r region 726.10 Active 20202710 Problem Mastodynia 611.71 Active 83802297 ALLERGIES No Information ENCOUNTERS Encounter Location Date Diagnosis [facility] [address] [id number] [address] [place] [id number] Jun, Dental examination Z01.20 [facility] [address] [facility] [id number] [address] [place] [address] Jan, Encounter for immunization Z 23 [facility] [address] [facility] [id number] [address] [place] [address] 14 Jul, 2014 [facility] [address] [facility] [id number] [address] [place] [address] Jul, [facility] [address] [facility] [id number] [address] [place] [address] Feb, [facility] [address] [facility] [id number] [address] [place] [address] Feb, [facility] [address] [facility] [id number] [address] [place] [address] May, [facility] [address] [id number] [address] [place] [address], [place] [address] May, [facility] [address] [id number] [address] [place] [address], [place] [address] Apr, [facility] [address] [id number] [address] [place] [address], [place] [address] Apr, [facility] [address] [id number] [address] [place] [address], [place] [address] Mar, [facility] [address] [id number] [address] [place] [address], [place] [address] Mar, [facility] [address] [id number] [address] [place] [address], [place] [address] Mar, [facility] [address] [id number] [address] [place] [address], [place] [address] Mar, [facility] [address] [id number] [address] [place] [address], [place] [address] Jun, [facility] [address] [id number] [address] [place] [address], [place] [address] May, [facility] [address] [id number] [address] [place] [address], [place] [address] Apr, [facility] [address] [id number] [address] [place] [address], [place] [address] Mar, [facility] [address] [id number] [address] [place] [address], [place] [address] Mar, [facility] [address] [id number] [address] [place] [address], [place] [address] Mar, [facility] [address] [id number] [address] [place] [address], [place] [address] Mar, [facility] [address] [id number] [address] [place] [address], [place] [address] Mar, [facility] [address] [id number] [address] [place] [address] Mar, [facility] [address] [id number] [address] [place] [address], [place] [address] Feb, [facility] [address] [id number] [address] [place] [address] Feb, [facility] [address] [id number] [address] [place] [address], [place] [address] Feb, [facility] [address] [id number] [address] [place] [address], [place] [address] Feb, [facility] [address] [id number] [address] [place] [address], [place] [address] Feb, [facility] [address] [id number] [address] [place] [address] Feb, [facility] [address] [id number] [address] [place] [address] Jan, [facility] [address] [id number] [address] [place] [address] Jan, [facility] [address] [id number] [address] [place] [address], [place] [address] Jan, [facility] [address] [id number] [address] [place] [address] Jan, [facility] [address] [id number] [address] [place] [address], [place] [address] Jan, [facility] [address] [id number] [address] [place] [address] Jan, [facility] [address] [id number] [address] [place] [address] Jan, [facility] [address] [id number] [address] [place] [address] Jan, [facility] [address] [id number] [address] [place] [address] 18 Dec, 2011 [facility] [address] [id number] [address] [place] [address], [place] [address] Dec, [facility] [address] [id number] [address] [place] [address], [place] [address] Dec, [facility] [address] [id number] [address] [place] [address], [place] [address] Nov, [facility] [address] [id number] [address] [place] [address], [place] [address] Nov, [facility] [address] [id number] [address] [place] [address], [place] [address] Nov, [facility] [address] [id number] [address] [place] [address], [place] [address] Nov, [facility] [address] [id number] [address] [place] [address], [place] [address] Oct, [facility] [address] [id number] [address] [place] [address], [place] [address] Sep, [facility] [address] [id number] [address] [place] [address], [place] [address] August, [facility] [address] [id number] [address] [place] [address], [place] [address] August, [facility] [address] [id number] [address] [place] [address], [place] [address] August, [facility] [address] [id number] [address] [place] [address], [place] [address] August, [facility] [address] [id number] [address] [place] [address], [place] [address] August, [facility] [address] [id number] [address] [place] [address], [place] [address] Jul, [facility] [address] [id number] [address] [place] [address], [place] [address] Jul, [facility] [address] [id number] [address] [place] [address], [place] [address] 17 Jul, 2011 [facility] [address] [id number] [address] [place] [address], [place] [address] 16 Jul, 2011 [facility] [address] [id number] [address] [place] [address], [place] [address] 16 Jul, 2011 [facility] [address] [id number] [address] [place] [address], [place] [address] 09 Jul, 2011 [facility] [address] [id number] [address] [place] [address], [place] [address] 02 Jul, 2011 [facility] [address] [id number] [address] [place] [address], [place] [address] 22 Jun, 2011 [facility] [address] [id number] [address] [place] [address], [place] [address] 15 Jun, 2011 [facility] [address] [id number] [address] [place] [address], [place] [address] 08 Jun, 2011 [facility] [address] [id number] [address] [place] [address], [place] [address] 05 Apr, 2011 [facility] [address] [id number] [address] [place] [address], [place] [address] Mar, [facility] [address] [id number] [address] [place] [address], [place] [address] 15 Mar, 2011 [facility] [address] [id number] [address] [place] [address], [place] [address] 22 Feb, 2011 [facility] [address] [id number] [address] [place] [address], [place] [address] 14 Feb, 2011 [facility] [address] [id number] [address] [place] [address], [place] [address] Feb, [facility] [address] [id number] [address] [place] [address], [place] [address] Feb, [facility] [address] [id number] [address] [place] [address], [place] [address] 03 Feb, 2011 [facility] [address] [id number] [address] [place] [address] Jan, [facility] [address] [id number] [address] [place] [address] Jan, [facility] [address] [id number] [address] [place] [address] Jan, [facility] [address] [id number] [address] [place] [address] Jan, [facility] [address] [id number] [address] [place] [address] Jan, [facility] [address] [id number] [address] [place] [address] Jan, [facility] [address] [id number] [address] [place] [address] Jan, [facility] [address] [id number] [address] [place] [address] Feb, IMMUNIZATIONS No Known Immunizations SOCIAL HISTORY [...]
--- OUTSIDE RECORDS SUMMARY | 2019-08-18 08:41 | XMS REPORT ---
Author Author Asia Reddy Doctor Organization [facility] Address Unknown Phone Unavailable Care Team Providers Care Transformer Molder Name Role Phone Migration, Doctor Unavailable Unavailable PROBLEMS Type Condition ICD9-CM Code SCR30-AN Code Onset Dates Condition S tatus SNOMED Code Problem Contusion of unspecified site 924.9 Active 672305106 Problem Unspecified chronic hepatitis 571.40 Active 28661986 Problem Chronic hepatitis C without mention of hepatic coma 070.54 Active 152590153 Problem Neck sprain and strain 847.0 Active 047201902 Problem Pain in joint, forearm 719.43 Active 101226386 Problem Unspecified disorders of bursae and tendons in shoulde r region 726.10 Active 76552013 Problem Mastodynia 611.71 Active 39272208 ALLERGIES No Information ENCOUNTERS Encounter Location Date Diagnosis [facility] [address] [id number] [address] [place] [address] [id number] 22 Jun, 2016 Dental examination Z01.20 [facility] [address] [id number] [address] [place] [address] Jan, Encounter for immunization Z 23 [facility] [address] [facility] [id number] [address] [place] [address] 14 Jul, 2014 [facility] [address] [facility] [id number] [address] [place] [address] Jul, [facility] [address] [facility] [id number] [address] [place] [address] Feb, [facility] [address] [facility] [id number] [address] [place] [address] Feb, [facility] [address] [facility] [id number] [address] [place] [address] May, [facility] [address] [facility] [id number] [address] [place] [address] May, [facility] [address] [id number] [address] [place] [address], [place] [address] Apr, [facility] [address] [id number] [address] [place] [address], [place] [address] Apr, [facility] [address] [id number] [address] [place] [address], [place] [address] Mar, [facility] [address] [id number] [address] [place] [address], [place] [address] Mar, [facility] [address] [id number] [address] [place] [address], [place] [address] Mar, [facility] [address] [id number] [address] [place] [address], [place] [address] Mar, [facility] [address] [id number] [address] [place] [address], [place] [address] Jun, [facility] [address] [id number] [address] [place] [address], [place] [address] May, [facility] [address] [id number] [address] [place] [address], [place] [address] Apr, [facility] [address] [id number] [address] [place] [address], [place] [address] Mar, [facility] [address] [id number] [address] [place] [address], [place] [address] Mar, [facility] [address] [id number] [address] [place] [address], [place] [address] Mar, [facility] [address] [id number] [address] [place] [address], [place] [address] Mar, [facility] [address] [id number] [address] [place] [address], [place] [address] Mar, [facility] [address] [id number] [address] [place] [address], [place] [address] Mar, [facility] [address] [id number] [address] [place] [address], [place] [address] Feb, [facility] [address] [id number] [address] [place] [address], [place] [address] Feb, [facility] [address] [id number] [address] [place] [address], [place] [address] Feb, [facility] [address] [id number] [address] [place] [address], [place] [address] Feb, [facility] [address] [id number] [address] [place] [address], [place] [address] Feb, [facility] [address] [id number] [address] [place] [address], [place] [address] Feb, [facility] [address] [id number] [address] [place] [address], [place] [address] Jan, [facility] [address] [id number] [address] [place] [address], [place] [address] Jan, [facility] [address] [id number] [address] [place] [address], [place] [address] Jan, [facility] [address] [id number] [address] [place] [address], [place] [address] Jan, [facility] [address] [id number] [address] [place] [address], [place] [address] Jan, [facility] [address] [id number] [address] [place] [address], [place] [address] Jan, [facility] [address] [id number] [address] [place] [address], [place] [address] Jan, [facility] [address] [id number] [address] [place] [address], [place] [address] 02 Jan, 2012 [facility] [address] [id number] [address] [place] [address], [place] [address] 18 Dec, 2011 [facility] [address] [id number] [address] [place] [address], [place] [address] Dec, [facility] [address] [id number] [address] [place] [address], [place] [address] Dec, [facility] [address] [id number] [address] [place] [address], [place] [address] Nov, [facility] [address] [id number] [address] [place] [address], [place] [address] Nov, [facility] [address] [id number] [address] [place] [address], [place] [address] Nov, [facility] [address] [id number] [address] [place] [address], [place] [address] Nov, [facility] [address] [id number] [address] [place] [address], [place] [address] Oct, [facility] [address] [id number] [address] [place] [address], [place] [address] Sep, [facility] [address] [id number] [address] [place] [address], [place] [address] August, [facility] [address] [id number] [address] [place] [address], [place] [address] August, [facility] [address] [id number] [address] [place] [address], [place] [address] August, [facility] [address] [id number] [address] [place] [address], [place] [address] August, [facility] [address] [id number] [address] [place] [address], [place] [address] August, [facility] [address] [id number] [address] [place] [address], [place] [address] Jul, [facility] [address] [id number] [address] [place] [address], [place] [address] Jul, [facility] [address] [id number] [address] [place] [address], [place] [address] Jul, [facility] [address] [id number] [address] [place] [address], [place] [address] 16 Jul, 2011 [facility] [address] [id number] [address] [place] [address], [place] [address] 16 Jul, 2011 [facility] [address] [id number] [address] [place] [address], [place] [address] 09 Jul, 2011 [facility] [address] [id number] [address] [place] [address], [place] [address] 02 Jul, 2011 [facility] [address] [id number] [address] [place] [address], [place] [address] 22 Jun, 2011 [facility] [address] [id number] [address] [place] [address], [place] [address] 15 Jun, 2011 [facility] [address] [id number] [address] [place] [address], [place] [address] 08 Jun, 2011 [facility] [address] [id number] [address] [place] [address], [place] [address] Apr, [facility] [address] [id number] [address] [place] [address], [place] [address] 15 Mar, 2011 [facility] [address] [id number] [address] [place] [address], [place] [address] Mar, [facility] [address] [id number] [address] [place] [address], [place] [address] 22 Feb, 2011 [facility] [address] [id number] [address] [place] [address], [place] [address] 14 Feb, 2011 [facility] [address] [id number] [address] [place] [address], [place] [address] Feb, [facility] [address] [id number] [address] [place] [address], [place] [address] 11 Feb, 2011 [facility] [address] [id number] [address] [place] [address], [place] [address] 03 Feb, 2011 [facility] [address] [id number] [address] [place] [address], [place] [address] Jan, [facility] [address] [id number] [address] [place] [address] Jan, [facility] [address] [id number] [address] [place] [phone] Jan, [facility] [address] [id number] [address] [place] [phone] Jan, [facility] [address] [id number] [address] [place] [id number] Jan, [facility] [address] [id number] [address] [place] [phone] Jan, [facility] [address] [id number] [address] [place] [id number] Jan, [facility] [address] [id number] [address] [place] [phone] Feb, IMMUNIZATIONS No Known Immunizations SOCIAL HISTORY Never Assessed REASON FOR VISIT EMR-[facility] PLAN OF CARE VITAL SIGNS MEDICATIONS No Known Medications RESULTS No Results PROCEDURES No Known procedures INSTRUCTIONS MEDICATIONS ADMINISTERED No Known Medications MEDICAL (GENERAL) HISTORY Type Description Date Medical History HBP Medical History arthritis Medical History fribromyalgia Surgical History neck surgery 01/2016 Surgical History Lymphnode removal 05/2016
--- OUTSIDE RECORDS SUMMARY | 2019-08-18 08:41 | XMS REPORT ---
Author Author Asia Reddy Doctor Organization [facility] Address Unknown Phone Unavailable Care Team Providers Care Assessment Expert Name Role Phone Migration, Doctor Unavailable Unavailable PROBLEMS Type Condition ICD9-CM Code QED51-WM Code Onset Dates Condition S tatus SNOMED Code Problem Contusion of unspecified site 924.9 Active 790898066 Problem Unspecified chronic hepatitis 571.40 Active 31579872 Problem Chronic hepatitis C without mention of hepatic coma 070.54 Active 160391558 Problem Neck sprain and strain 847.0 Active 942549231 Problem Pain in joint, forearm 719.43 Active 239244117 Problem Unspecified disorders of bursae and tendons in shoulde r region 726.10 Active 76862982 Problem Mastodynia 611.71 Active 77056273 ALLERGIES No Information ENCOUNTERS Encounter Location Date Diagnosis [facility] [address] [id number] [address] [place] [id number] Jun, Dental examination Z01.20 [facility] [address] [id number] [address] [place] [address] Jan, Encounter for immunization Z 23 [facility] [address] [facility] [id number] [address] [place] [address] 14 Jul, 2014 [facility] [address] [facility] [id number] [address] [place] [address] Jul, [facility] [address] [facility] [id number] [address] [place] [address] Feb, [facility] [address] [facility] [id number] [address] [place] [address] Feb, [facility] [address] [facility] [id number] [address] [place] [address] May, [facility] [address] [facility] [id number] [address] [place] [address] May, [facility] [address] [id number] [address] [place] [address], [place] [address] Apr, [facility] [address] [id number] [address] [place] [address], [place] [address] Apr, [facility] [address] [id number] [address] [place] [address], [place] [address] Mar, [facility] [address] [id number] [address] [place] [address], [place] [address] Mar, [facility] [address] [id number] [address] [place] [address], [place] [address] Mar, [facility] [address] [id number] [address] [place] [address], [place] [address] Mar, [facility] [address] [id number] [address] [place] [address], [place] [address] Jun, [facility] [address] [id number] [address] [place] [address], [place] [address] May, [facility] [address] [id number] [address] [place] [address], [place] [address] Apr, [facility] [address] [id number] [address] [place] [address], [place] [address] Mar, [facility] [address] [id number] [address] [place] [address], [place] [address] Mar, [facility] [address] [id number] [address] [place] [address], [place] [address] Mar, [facility] [address] [id number] [address] [place] [address], [place] [address] Mar, [facility] [address] [id number] [address] [place] [address], [place] [address] Mar, [facility] [address] [id number] [address] [place] [address], [place] [address] Mar, [facility] [address] [id number] [address] [place] [address], [place] [address] Feb, [facility] [address] [id number] [address] [place] [address], [place] [address] Feb, [facility] [address] [id number] [address] [place] [address], [place] [address] Feb, [facility] [address] [id number] [address] [place] [address], [place] [address] Feb, [facility] [address] [id number] [address] [place] [address], [place] [address] Feb, [facility] [address] [id number] [address] [place] [address], [place] [address] Feb, [facility] [address] [id number] [address] [place] [address], [place] [address] Jan, [facility] [address] [id number] [address] [place] [address], [place] [address] Jan, [facility] [address] [id number] [address] [place] [address], [place] [address] Jan, [facility] [address] [id number] [address] [place] [address], [place] [address] Jan, [facility] [address] [id number] [address] [place] [address], [place] [address] Jan, [facility] [address] [id number] [address] [place] [address], [place] [address] Jan, [facility] [address] [id number] [address] [place] [address], [place] [address] Jan, [facility] [address] [id number] [address] [place] [address], [place] [address] 02 Jan, 2012 [facility] [address] [id number] [address] [place] [address], [place] [address] 18 Dec, 2011 [facility] [address] [id number] [address] [place] [address], [place] [address] Dec, [facility] [address] [id number] [address] [place] [address], [place] [address] Dec, [facility] [address] [id number] [address] [place] [address], [place] [address] Nov, [facility] [address] [id number] [address] [place] [address], [place] [address] Nov, [facility] [address] [id number] [address] [place] [address], [place] [address] Nov, [facility] [address] [id number] [address] [place] [address], [place] [address] Nov, [facility] [address] [id number] [address] [place] [address], [place] [address] Oct, [facility] [address] [id number] [address] [place] [address], [place] [address] Sep, [facility] [address] [id number] [address] [place] [address], [place] [address] August, [facility] [address] [id number] [address] [place] [address], [place] [address] August, [facility] [address] [id number] [address] [place] [address], [place] [address] August, [facility] [address] [id number] [address] [place] [address], [place] [address] August, [facility] [address] [id number] [address] [place] [address], [place] [address] August, [facility] [address] [id number] [address] [place] [address], [place] [address] Jul, [facility] [address] [id number] [address] [place] [address], [place] [address] Jul, [facility] [address] [id number] [address] [place] [address], [place] [address] Jul, [facility] [address] [id number] [address] [place] [address], [place] [address] 16 Jul, 2011 [facility] [address] [id number] [address] [place] [address], [place] [address] 16 Jul, 2011 [facility] [address] [id number] [address] [place] [address], [place] [address] 09 Jul, 2011 [facility] [address] [id number] [address] [place] [address], [place] [address] 02 Jul, 2011 [facility] [address] [id number] [address] [place] [address], [place] [address] 22 Jun, 2011 [facility] [address] [id number] [address] [place] [address], [place] [address] 15 Jun, 2011 [facility] [address] [id number] [address] [place] [address], [place] [address] 08 Jun, 2011 [facility] [address] [id number] [address] [place] [address], [place] [address] Apr, [facility] [address] [id number] [address] [place] [address], [place] [address] 15 Mar, 2011 [facility] [address] [id number] [address] [place] [address], [place] [address] Mar, [facility] [address] [id number] [address] [place] [address], [place] [address] 22 Feb, 2011 [facility] [address] [id number] [address] [place] [address], [place] [address] 14 Feb, 2011 [facility] [address] [id number] [address] [place] [address], [place] [address] Feb, [facility] [address] [id number] [address] [place] [address], [place] [address] 11 Feb, 2011 [facility] [address] [id number] [address] [place] [address], [place] [address] 03 Feb, 2011 [facility] [address] [id number] [address] [place] [address], [place] [address] Jan, [facility] [address] [id number] [address] [place] [address] Jan, [facility] [address] [id number] [address] [place] [address] Jan, [facility] [address] [id number] [address] [place] [address] Jan, [facility] [address] [id number] [address] [place] [address] Jan, [facility] [address] [id number] [address] [place] [address] Jan, [facility] [address] [id number] [address] [place] [address] Jan, [facility] [address] [id number] [address] [place] [address] Feb, IMMUNIZATIONS No Known Immunizations SOCIAL HISTORY Never Assessed REASON FOR VISIT PLAN OF CARE VITAL SIGNS Height 59 in 2011-07-22 Weight 160 lbs 2011-07-22 Temperature 97.5 degrees Fahrenheit 2011-07-22 Heart Rate 100 bpm 2011-07-22 Respiratory Rate 18 2011-07-22 Blood pressure systolic 124 mmHg 2011-07-22 Blood pressure diastolic 70 mmHg 2011-07-22 MEDICATIONS No Known Medications RESULTS No Results PROCEDURES No Known procedures INSTRUCTIONS MEDICATIONS ADMINISTERED No Known Medications MEDICAL (GENERAL) HISTORY Type Description Date Medical History HBP Medical History arthritis Medical History fribromyalgia Surgical History neck surgery 01/2016 Surgical History Lymphnode removal 05/2016
--- OUTSIDE RECORDS SUMMARY | 2019-08-18 08:41 | XMS REPORT ---
Author Author Asia MEJIA Organization [facility] Address [address] [place] [address] Care Team Providers Care Environmental Monitoring Specialist Name Role Phone PATRICIO MEJIA Unavailable PROBLEMS Type Condition ICD9-CM Code IGL90-PV Code Onset Dates Condition S tatus SNOMED Code Problem Fibromyalgia M79.7 Active 9339249 05 Problem Chronic pain syndrome G89.4 Active 106412360 Problem Gastroesophageal reflux disease, esophagitis pre sence not specified K21.9 Active 397978913 ALLERGIES No Information ENCOUNTERS Encounter Location Date Diagnosis [facility] [address] [address] Mar, [facility] [address] [address] Mar, Cervical lymphadenopathy R59.0 ; Gastroe sophageal reflux disease, esophagitis presence not specified K21.9 ; Chronic pain syndrome G89.4 ; Fibromyalgia M79.7 and Cervical spine arthritis M47.812 [facility] [address] [address] Feb, [facility] [address] [address] Feb, Lump on neck R22.1 [facility] [address] [facility] [id number] [address] [address] Feb, Lump on neck R22.1 [facility] [address] [id number] [place] [id number] Jun, Dental examination Z01.20 [facility] [address] [address] Jan, Encounter for immunization Z23 [facility] [address] [address] 14 Jul, 2014 [facility] [address] [id number] [place] [address] Jul, [facility] [address] [id number] [place] [address] Feb, [facility] [address] [id number] [place] [address] Feb, [facility] [address] [id number] [place] [address] May, [facility] [address] [id number] [place] [address] May, [facility] [address] [id number] [place] [address] Apr, [facility] [address] [id number] [place] [address] Apr, [facility] [address] [id number] [place] [address] Mar, [facility] [address] [id number] [place] [address] Mar, [facility] [address] [id number] [place] [address] Mar, [facility] [address] [id number] [place] [address] Mar, [facility] [address] [id number] [place] [address] Jun, [facility] [address] [id number] [place] [address] May, [facility] [address] [id number] [place] [address] Apr, [facility] [address] [id number] [place] [address] Mar, [facility] [address] [id number] [place] [address] Mar, [facility] [address] [id number] [place] [address] 14 Mar, 2012 [facility] [address] [id number] [place] [address] 14 Mar, 2012 [facility] [address] [id number] [place] [address] Mar, [facility] [address] [id number] [place] [address] Mar, [facility] [address] [id number] [place] [address] Feb, [facility] [address] [id number] [place] [address] Feb, [facility] [address] [id number] [place] [address] Feb, [facility] [address] [id number] [place] [address] Feb, [facility] [address] [id number] [place] [address] Feb, [facility] [address] [id number] [place] [address] Feb, [facility] [address] [id number] [place] [address] Jan, [facility] [address] [id number] [place] [address] Jan, [facility] [address] [id number] [place] [address] Jan, [facility] [address] [id number] [place] [address] Jan, [facility] [address] [id number] [place] [address] 15 Jan, 2012 [facility] [address] [id number] [place] [address] Jan, [facility] [address] [id number] [place] [address] Jan, [facility] [address] [id number] [place] [address] Jan, [facility] [address] [id number] [place] [address] Dec, [facility] [address] [id number] [place] [address] Dec, [facility] [address] [id number] [place] [address] Dec, [facility] [address] [id number] [place] [address] Nov, [facility] [address] [id number] [place] [address] Nov, [facility] [address] [id number] [place] [address] Nov, [facility] [address] [id number] [place] [address] Nov, [facility] [address] [id number] [place] [address] Oct, [facility] [address] [id number] [place] [address] Sep, [facility] [address] [id number] [place] [address] August, [facility] [address] [id number] [place] [address] August, [facility] [address] [id number] [place] [address] August, [facility] [address] [id number] [place] [address] August, [facility] [address] [id number] [place] [address] August, [facility] [address] [id number] [place] [address] Jul, [facility] [address] [id number] [place] [address] 26 Jul, 2011 [facility] [address] [id number] [place] [address] 17 Jul, 2011 [facility] [address] [id number] [place] [address] 16 Jul, 2011 [facility] [address] [id number] [place] [address] 16 Jul, 2011 [facility] [address] [id number] [place] [address] 09 Jul, 2011 [facility] [address] [id number] [place] [address] Jul, [facility] [address] [id number] [place] [address] Jun, [facility] [address] [id number] [place] [address] 15 Jun, 2011 [facility] [address] [id number] [place] [address] 08 Jun, 2011 [facility] [address] [id number] [place] [address] Apr, [facility] [address] [id number] [place] [address] 15 Mar, 2011 [facility] [address] [id number] [place] [address] Mar, [facility] [address] [id number] [place] [address] Feb, [facility] [address] [id number] [place] [address] 14 Feb, 2011 [facility] [address] [id number] [place] [address] Feb, [facility] [address] [id number] [place] [address] Feb, [facility] [address] [id number] [place] [address] 03 Feb, 2011 [facility] [address] [id number] [place] [address] Jan, [facility] [id number] [place] [address] Jan, [facility] [address] [id number] [place] [address] Jan, [facility] [id number] [place] [address] Jan, [facility] [id number] [place] [address] Jan, [facility] [id number] [place] [address] Jan, [facility] [address] [id number] [place] [address] Jan, [facility] [address] [id number] [place] [address] Feb, IMMUNIZATIONS No Known Immunizations SOCIAL HISTORY [...]
--- OUTSIDE RECORDS SUMMARY | 2019-08-18 08:41 | XMS REPORT ---
Author Author Asia Reddy Doctor Organization [facility] Address Unknown Phone Unavailable Care Team Providers Care Ion Implant Machine Operator Name Role Phone Migration, Doctor Unavailable Unavailable PROBLEMS Type Condition ICD9-CM Code GIV21-ZE Code Onset Dates Condition S tatus SNOMED Code Problem Contusion of unspecified site 924.9 Active 651278823 Problem Unspecified chronic hepatitis 571.40 Active 11941392 Problem Chronic hepatitis C without mention of hepatic coma 070.54 Active 582453325 Problem Neck sprain and strain 847.0 Active 170873063 Problem Pain in joint, forearm 719.43 Active 492093797 Problem Unspecified disorders of bursae and tendons in shoulde r region 726.10 Active 10720731 Problem Mastodynia 611.71 Active 23977396 ALLERGIES No Information ENCOUNTERS Encounter Location Date Diagnosis [facility] [address] [id number] [address] [place] [id number] 22 Jun, 2016 Dental examination Z01.20 [facility] [address] [id number] [address] [place] [phone] Jan, Encounter for immunization Z 23 [facility] [address] [facility] [id number] [address] [place] [phone] 14 Jul, 2014 [facility] [address] [facility] [id number] [address] [place] [phone] Jul, [facility] [address] [facility] [id number] [address] [place] [phone] Feb, [facility] [address] [facility] [id number] [address] [place] [phone] Feb, [facility] [address] [facility] [id number] [address] [place] [phone] May, [facility] [address] [facility] [id number] [address] [place] [phone] May, [facility] [address] [id number] [address] [place] [address], [place] [address] Apr, [facility] [address] [id number] [address] [place] [address], [place] [address] Apr, [facility] [address] [id number] [address] [place] [address], [place] [address] Mar, [facility] [address] [id number] [address] [place] [address], [place] [address] Mar, [facility] [address] [id number] [address] [place] [address], [place] [address] Mar, [facility] [address] [id number] [address] [place] [address], [place] [address] Mar, [facility] [address] [id number] [address] [place] [address], [place] [address] Jun, [facility] [address] [id number] [address] [place] [address], [place] [address] May, [facility] [address] [id number] [address] [place] [address], [place] [address] Apr, [facility] [address] [id number] [address] [place] [address], [place] [address] Mar, [facility] [address] [id number] [address] [place] [address], [place] [address] Mar, [facility] [address] [id number] [address] [place] [address], [place] [address] Mar, [facility] [address] [id number] [address] [place] [address], [place] [address] Mar, [facility] [address] [id number] [address] [place] [address], [place] [address] Mar, [facility] [address] [id number] [address] [place] [address], [place] [address] Mar, [facility] [address] [id number] [address] [place] [address], [place] [address] Feb, [facility] [address] [id number] [address] [place] [address], [place] [address] Feb, [facility] [address] [id number] [address] [place] [address], [place] [address] Feb, [facility] [address] [id number] [address] [place] [address], [place] [address] Feb, [facility] [address] [id number] [address] [place] [address], [place] [address] Feb, [facility] [address] [id number] [address] [place] [address], [place] [address] Feb, [facility] [address] [id number] [address] [place] [address], [place] [address] Jan, [facility] [address] [id number] [address] [place] [address], [place] [address] Jan, [facility] [address] [id number] [address] [place] [address], [place] [address] Jan, [facility] [address] [id number] [address] [place] [address], [place] [address] Jan, [facility] [address] [id number] [address] [place] [address], [place] [address] Jan, [facility] [address] [id number] [address] [place] [address], [place] [address] Jan, [facility] [address] [id number] [address] [place] [address], [place] [address] Jan, [facility] [address] [id number] [address] [place] [address], [place] [address] 02 Jan, 2012 [facility] [address] [id number] [address] [place] [address], [place] [address] 18 Dec, 2011 [facility] [address] [id number] [address] [place] [address], [place] [address] Dec, [facility] [address] [id number] [address] [place] [address], [place] [address] Dec, [facility] [address] [id number] [address] [place] [address], [place] [address] Nov, [facility] [address] [id number] [address] [place] [address], [place] [address] Nov, [facility] [address] [id number] [address] [place] [address], [place] [address] Nov, [facility] [address] [id number] [address] [place] [address], [place] [address] Nov, [facility] [address] [id number] [address] [place] [address], [place] [address] Oct, [facility] [address] [id number] [address] [place] [address], [place] [address] Sep, [facility] [address] [id number] [address] [place] [address], [place] [address] August, [facility] [address] [id number] [address] [place] [address], [place] [address] August, [facility] [address] [id number] [address] [place] [address], [place] [address] August, [facility] [address] [id number] [address] [place] [address], [place] [address] August, [facility] [address] [id number] [address] [place] [address], [place] [address] August, [facility] [address] [id number] [address] [place] [address], [place] [address] Jul, [facility] [address] [id number] [address] [place] [address], [place] [address] Jul, [facility] [address] [id number] [address] [place] [address], [place] [address] Jul, [facility] [address] [id number] [address] [place] [address], [place] [address] 16 Jul, 2011 [facility] [address] [id number] [address] [place] [address], [place] [address] 16 Jul, 2011 [facility] [address] [id number] [address] [place] [address], [place] [address] 09 Jul, 2011 [facility] [address] [id number] [address] [place] [address], [place] [address] 02 Jul, 2011 [facility] [address] [id number] [address] [place] [address], [place] [address] 22 Jun, 2011 [facility] [address] [id number] [address] [place] [address], [place] [address] 15 Jun, 2011 [facility] [address] [id number] [address] [place] [address], [place] [address] 08 Jun, 2011 [facility] [address] [id number] [address] [place] [address], [place] [address] Apr, [facility] [address] [id number] [address] [place] [address], [place] [address] 15 Mar, 2011 [facility] [address] [id number] [address] [place] [address], [place] [address] Mar, [facility] [address] [id number] [address] [place] [address], [place] [address] 22 Feb, 2011 [facility] [address] [id number] [address] [place] [address], [place] [address] 14 Feb, 2011 [facility] [address] [id number] [address] [place] [address], [place] [address] Feb, [facility] [address] [id number] [address] [place] [address], [place] [address] 11 Feb, 2011 [facility] [address] [id number] [address] [place] [address], [place] [address] 03 Feb, 2011 [facility] [address] [id number] [address] [place] [address], [place] [address] Jan, [facility] [address] [id number] [address] [place] [address] Jan, [facility] [address] [id number] [address] [place] [address] Jan, [facility] [address] [id number] [address] [place] [address] Jan, [facility] [address] [id number] [address] [place] [phone] Jan, [facility] [address] [id number] [address] [place] [address] Jan, [facility] [address] [id number] [address] [place] [address] Jan, [facility] [address] [id number] [address] [place] [address] Feb, IMMUNIZATIONS No Known Immunizations SOCIAL HISTORY Never Assessed REASON FOR VISIT EMR-[facility] [place] PLAN OF CARE VITAL SIGNS MEDICATIONS No Known Medications RESULTS No Results PROCEDURES No Known procedures INSTRUCTIONS MEDICATIONS ADMINISTERED No Known Medications MEDICAL (GENERAL) HISTORY Type Description Date Medical History HBP Medical History arthritis Medical History fribromyalgia Surgical History neck surgery 01/2016 Surgical History Lymphnode removal 05/2016
--- OUTSIDE RECORDS SUMMARY | 2019-08-18 08:41 | XMS REPORT ---
Author Author Asia ARROYO [facility] eClinicalWorks Address Unknown Phone Unavailable Care Team Providers Care Copper Plate Printer Name Role Phone JULIOCESAR ARROYO CP Unavailable Allergies No Known Allergies Problems Problem Type Condition Code Onset Dates Condition Statu s Assessment Encounter for immunization Z23 A ctive Problem Unspecified disorders of bursae and tendons in shoulde r region 726.10 Active Problem Unspecified chronic hepatitis 571.40 Active Problem Pain in joint, forearm 719.43 Activ e Problem Contusion of unspecified site 924.9 Active Problem Chronic hepatitis C without mention of hepatic coma 07 0.54 Active Problem Mastodynia 611.71 Active Problem Neck sprain and strain 847.0 Activ e Medications No Known Medications Procedures Procedure Coding System Code Date SINGLE IMMUNIZATION ADMIN CPT-4 25894 Jan TWINRIX (HEP A/B) CPT-4 08982 Feb 09, 2015 Results No Known Results Immunizations Vaccine Administration Date TWINRIX (HEP A/B) Feb 09, 2015 Summary Purpose eClinicalWorks Submission
--- OUTSIDE RECORDS SUMMARY | 2019-08-18 08:41 | XMS REPORT ---
Author Author Asia Reddy Doctor Organization [facility] Address Unknown Phone Unavailable Care Team Providers Care Lard Bleacher Name Role Phone Migration, Doctor Unavailable Unavailable PROBLEMS Type Condition ICD9-CM Code KRT94-HY Code Onset Dates Condition S tatus SNOMED Code Problem Contusion of unspecified site 924.9 Active 001445391 Problem Unspecified chronic hepatitis 571.40 Active 44390192 Problem Chronic hepatitis C without mention of hepatic coma 070.54 Active 977552845 Problem Neck sprain and strain 847.0 Active 865420518 Problem Pain in joint, forearm 719.43 Active 698571028 Problem Unspecified disorders of bursae and tendons in shoulde r region 726.10 Active 72139510 Problem Mastodynia 611.71 Active 11038198 ALLERGIES No Information ENCOUNTERS Encounter Location Date Diagnosis [facility] [address] [id number] [address] [place] [id number] Jun, Dental examination Z01.20 [facility] [address] [facility] [id number] [address] [place] [phone] Jan, Encounter for immunization Z 23 [facility] [address] [facility] [id number] [address] [place] [address] 14 Jul, 2014 [facility] [address] [facility] [id number] [address] [place] [address] Jul, [facility] [address] [facility] [id number] [address] [place] [address] Feb, [facility] [address] [facility] [id number] [address] [place] [address] Feb, [facility] [address] [facility] [id number] [address] [place] [phone] May, [facility] [address] [facility] [id number] [address] [place] [address] May, [facility] [address] [id number] [address] [place] [address], [place] [id number] Apr, [facility] [address] [id number] [address] [place] [address], [place] [id number] Apr, [facility] [address] [id number] [address] [place] [address], [place] [id number] Mar, [facility] [address] [id number] [address] [place] [address], [place] [id number] Mar, [facility] [address] [id number] [address] [place] [address], [place] [id number] Mar, [facility] [address] [id number] [address] [place] [address], [place] [id number] Mar, [facility] [address] [id number] [address] [place] [address], [place] [id number] Jun, [facility] [address] [id number] [address] [place] [address], [place] [id number] May, [facility] [address] [id number] [address] [place] [address], [place] [id number] Apr, [facility] [address] [id number] [address] [place] [address], [place] [id number] Mar, [facility] [address] [id number] [address] [place] [address], [place] [id number] Mar, [facility] [address] [id number] [address] [place] [address], [place] [id number] Mar, [facility] [address] [id number] [address] [place] [address], [place] [id number] Mar, [facility] [address] [id number] [address] [place] [address], [place] [id number] Mar, [facility] [address] [id number] [address] [place] [address], [place] [id number] Mar, [facility] [address] [id number] [address] [place] [address], [place] [id number] Feb, [facility] [address] [id number] [address] [place] [address], [place] [id number] Feb, [facility] [address] [id number] [address] [place] [address], [place] [id number] Feb, [facility] [address] [id number] [address] [place] [address], [place] [id number] Feb, [facility] [address] [id number] [address] [place] [address], [place] [id number] Feb, [facility] [address] [id number] [address] [place] [address], [place] [id number] Feb, [facility] [address] [id number] [address] [place] [address], [place] [id number] Jan, [facility] [address] [id number] [address] [place] [address], [place] [id number] Jan, [facility] [address] [id number] [address] [place] [address], [place] [id number] Jan, [facility] [address] [id number] [address] [place] [address], [place] [id number] Jan, [facility] [address] [id number] [address] [place] [address], [place] [id number] Jan, [facility] [address] [id number] [address] [place] [address], [place] [id number] Jan, [facility] [address] [id number] [address] [place] [address], [place] [id number] Jan, [facility] [address] [id number] [address] [place] [address], [place] [id number] 02 Jan, 2012 [facility] [address] [id number] [address] [place] [address], [place] [id number] 18 Dec, 2011 [facility] [address] [id number] [address] [place] [address], [place] [id number] Dec, [facility] [address] [id number] [address] [place] [address], [place] [id number] Dec, [facility] [address] [id number] [address] [place] [address], [place] [id number] Nov, [facility] [address] [id number] [address] [place] [address], [place] [id number] Nov, [facility] [address] [id number] [address] [place] [address], [place] [id number] Nov, [facility] [address] [id number] [address] [place] [address], [place] [id number] Nov, [facility] [address] [id number] [address] [place] [address], [place] [id number] Oct, [facility] [address] [id number] [address] [place] [address], [place] [id number] Sep, [facility] [address] [id number] [address] [place] [address], [place] [id number] August, [facility] [address] [id number] [address] [place] [address], [place] [id number] August, [facility] [address] [id number] [address] [place] [address], [place] [id number] August, [facility] [address] [id number] [address] [place] [address], [place] [id number] August, [facility] [address] [id number] [address] [place] [address], [place] [id number] August, [facility] [address] [id number] [address] [place] [address], [place] [id number] Jul, [facility] [address] [id number] [address] [place] [address], [place] [id number] Jul, [facility] [address] [id number] [address] [place] [address], [place] [id number] Jul, [facility] [address] [id number] [address] [place] [address], [place] [id number] 16 Jul, 2011 [facility] [address] [id number] [address] [place] [address], [place] [id number] 16 Jul, 2011 [facility] [address] [id number] [address] [place] [address], [place] [id number] 09 Jul, 2011 [facility] [address] [id number] [address] [place] [address], [place] [id number] 02 Jul, 2011 [facility] [address] [id number] [address] [place] [address], [place] [id number] 22 Jun, 2011 [facility] [address] [id number] [address] [place] [address], [place] [id number] 15 Jun, 2011 [facility] [address] [id number] [address] [place] [address], [place] [id number] 08 Jun, 2011 [facility] [address] [id number] [address] [place] [address], [place] [id number] Apr, [facility] [address] [id number] [address] [place] [address], [place] [id number] 15 Mar, 2011 [facility] [address] [id number] [address] [place] [address], [place] [id number] Mar, [facility] [address] [id number] [address] [place] [address], [place] [id number] 22 Feb, 2011 [facility] [address] [id number] [address] [place] [address], [place] [id number] 14 Feb, 2011 [facility] [address] [id number] [address] [place] [address], [place] [id number] Feb, [facility] [address] [id number] [address] [place] [address], [place] [id number] 11 Feb, 2011 [facility] [address] [id number] [address] [place] [address], [place] [id number] 03 Feb, 2011 [facility] [address] [id number] [address] [place] [address], [place] [id number] Jan, [facility] [address] [id number] [address] [place] [id number] Jan, [facility] [address] [id number] [address] [place] [id number] Jan, [facility] [address] [id number] [address] [place] [id number] Jan, [facility] [address] [id number] [address] [place] [id number] Jan, [facility] [address] [id number] [address] [place] [id number] Jan, [facility] [address] [id number] [address] [place] [id number] Jan, [facility] [address] [id number] [address] [place] [id number] Feb, IMMUNIZATIONS No Known Immunizations SOCIAL HISTORY Never Assessed REASON FOR VISIT EMR-[facility] PLAN OF CARE VITAL SIGNS MEDICATIONS No Known Medications RESULTS No Results PROCEDURES No Known procedures INSTRUCTIONS MEDICATIONS ADMINISTERED No Known Medications MEDICAL (GENERAL) HISTORY Type Description Date Medical History HBP Medical History arthritis Medical History fribromyalgia Surgical History neck surgery 01/2016 Surgical History Lymphnode removal 05/2016
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
[2019-08-18 08:58] LABS: BILIRUBIN,URINE NEGATIVE (NEGATIVE); CLARITY,URINE CLEAR; COLOR,URINE YELLOW; GLUCOSE, URINE (UA) NEGATIVE (NEGATIVE); KETONES,URINE NEGATIVE (NEGATIVE); LEUKOCYTE ESTERASE ,URINE 2+ (NEGATIVE); NITRITE,URINE NEGATIVE (NEGATIVE); PH,URINE 6.5 (5-9); PROTEIN,URINE NEGATIVE (NEGATIVE)
[2019-08-18 09:14] LABS: BACTERIA,URINE FEW /HPF; RBC,URINE 0-2 /HPF
--- NOTE | 2019-08-18 09:53 | ED Back Pain ---
General Chief Complaint: Back Problems Stated Complaint: LOWER BACK PAIN Nursing Triage Note: PT AMBULATED TO ROOM 7 PT CO OF R FLANK PAIN. 8/10 FOR APPROX 4 DAYS. PT STATES URINE IS CLOUDY Nursing Sepsis Screen: No Definite Risk Source of Information: Patient Exam Limitations: No Limitations History of Present Illness Date Seen by Provider: Aug 18, 2019 Time Seen by Provider: 08:36 Initial Comments This 38 year old woman presents to the ER with primary complaint of right mid and low back pain for about 4 days. Urine is cloudy but she denies hematuria, dysuria, or fever. She has some mild suprapubic tenderness. She denies vaginal symptoms or risk factors for STIs. She has been afebrile. She believes she has a "kidney infection". Allergies and Home Medications Allergies Coded Allergies: NKANo Known Allergies (Verified Allergy, Unknown, 04/15/08) Home Medications Carisoprodol 350 Mg Tablet, 350 MG PO TID, (Reported) Cephalexin 500 Mg Capsule, 500 MG PO TID Prescribed by: ANNALEE NORWOOD on 08/18/19 0954 Hydrocodone Bit/Acetaminophen 1 Each Tablet, 1-2 EACH PO Q4HR PRN Prescribed by: PEARL RONQUILLO on 08/12/11 0409 Lorazepam 0.5 Mg Tablet, 0.5 MG PO BID, (Reported) Venlafaxine Hcl 75 Mg Tab, 75 MG PO TID, (Reported) Patient Home Medication List Home Medication List Reviewed: Yes Review of Systems Constitutional: no symptoms reported EENTM: no symptoms reported Respiratory: no symptoms reported Cardiovascular: no symptoms reported Gastrointestinal: see HPI Genitourinary: see HPI : No Control/STD Prophylaxis: Other (tubal ligation) Musculoskeletal: see HPI Skin: no symptoms reported Psychiatric/Neurological: No Symptoms Reported Past Adjdliq-Smgxqh-Uhypzd Hx Past Med/Social Hx: Reviewed Nursing Past Med/Soc Hx Patient Social History Alcohol Use: Denies Use Recreational Drug Use: No Smoking Status: Former Smoker Type Used: Cigarettes Recent Foreign Travel: No Contact w/Someone Who Travel: No Recent Infectious Disease Expo: No Recent Hopitalizations: No Physical Abuse: No Sexual Abuse: No Seasonal Allergies Seasonal Allergies: No Past Medical History Surgeries: Yes (LYMPHNODE REMOVAL, "PLATE IN NECK") Orthopedic, Tubal Ligation Respiratory: No Cardiac: Yes Hypertension Neurological: No Reproductive Disorders: No ACIDIZER History: Tubal Ligation Genitourinary: No Gastrointestinal: No Musculoskeletal: Yes Arthritis, Rheumatoid Arthritis, Back Injury, Chronic Back Pain Endocrine: No HEENT: No Cancer: No Psychosocial: No Integumentary: No Blood Disorders: No Physical Exam Vital Signs Vital Signs - First Documented 08/18/19 08:35 Temp 36.7 Pulse 81 Resp 18 B/P (MAP) 153/103 (120) Pulse Ox 100 Capillary Refill : Less Than 3 Seconds Height, Weight, BMI Height: '" Weight: lbs. oz. 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 as Tested, Other (difficulty focusing) Skin: Normal Color, Warm/Dry Progress/Results/Core Measures Results/Orders Lab Results Laboratory Tests Test 08/18/19 08:50 Range/Units Urine Color YELLOW Urine Clarity CLEAR Urine pH 6.5 5-9 Urine Specific [place] 1.015 L 1.016-1.022 Urine Protein NEGATIVE NEGATIVE Urine Glucose (UA) NEGATIVE NEGATIVE Urine Ketones NEGATIVE NEGATIVE Urine Nitrite NEGATIVE NEGATIVE Urine Bilirubin NEGATIVE NEGATIVE Urine Urobilinogen 0.2 < = 1.0 MG/DL Urine Leukocyte Esterase 2+ H NEGATIVE Urine RBC (Auto) 2+ H NEGATIVE Urine RBC 0-2 /HPF Urine WBC 2-5 /HPF Urine Squamous Epithelial Cells 5-10 /HPF Urine Crystals NONE /LPF Urine Bacteria FEW H /HPF Urine Casts NONE /LPF Urine Mucus NEGATIVE /LPF Urine Culture Indicated YES My Orders Orders - ANNALEE BERNAL MD Ua Culture If Indicated (08/18/19 08:36) Urine Bedside (08/18/19 08:44) Urine Culture (08/18/19 08:50) Ketorolac Injection (Toradol Injection) (08/18/19 10:00) Medications Given in ED Current Medications Medications Dose Ordered Sig/Bashir Route Start Time Stop Time Status Last Admin Dose Admin Ketorolac Tromethamine 30 mg ONCE ONCE IM 08/18/19 10:00 08/18/19 10:01 DC 08/18/19 10:14 30 MG Vital Signs/I&O 08/18/19 08/18/19 08:35 10:16 Temp 36.7 36.7 Pulse 81 76 Resp 18 18 B/P (MAP) 153/103 (120) 140/98 (120) Pulse Ox 100 100 Blood Pressure Mean: 120 Progress Progress Note : Time: 09:48 Progress Note UA demonstrated scant evidence for urinary tract infection. I inquired further about vaginal symptoms and risk for vaginal infection. Patient denies risk factors. I offered further workup including labs and possible imaging versus empiric treatment with antibiotics and observation. Patient chooses the latter. She would appreciate a Toradol injection Departure Impression Primary Impression: Right low back pain Qualified Codes: M54.5 - Low back pain Additional Impression: Suprapubic tenderness Disposition: 01 HOME, SELF-CARE Condition: Improved Departure-Patient Inst. Decision time for Depature: 09:50 Referrals: NO,LOCAL PHYSICIAN (PCP) Primary Care Physician Patient Instructions: Acute Pelvic Pain, Low Back Pain in Adults Add. Discharge Instructions: Drink plenty of clear liquids and complete your antibiotic as prescribed. You may add Ibuprofen up to 600 mg every 6 hours as needed for additional pain relief. Follow-up with a primary care provider as soon as possible. Return to the ER for unrelenting or worsening symptoms. All discharge instructions reviewed with patient and/or family. Voiced understanding. Scripts Cephalexin (Keflex) 500 Mg Capsule 500 MG PO TID, #20 CAP Prov: ANNALEE BERNAL MD 08/18/19 ANNALEE BERNAL MD Aug 18, 2019 09:53
[2019-08-18] MEDS ORDERED: CEPH-507 PO (09:54)
[2019-08-18] MEDS ORDERED: KETOROLAC 30 MG/ML VIAL IM ONE (10:00)
[2019-08-18 10:16] VITALS: BP 140/98
== END 2019-08-18 10:16 | disposition home or self-care (01) ==
LOC: EDUNIT# 08:33 → ER 08:34
DX: M54.5 Low back pain (principal); R10.819 Abdominal tenderness, unspecified site; I10 Essential (primary) hypertension; M06.9 Rheumatoid arthritis, unspecified; G89.29 Other chronic pain
CPT/HCPCS: 81000; 84703; 87088; 99284

== ENCOUNTER → 2019-08-31 | Outpatient (CLI) | payer MEDICAID ==
[~2019-08-31] MED LIST changes: +CEPH-507 PO
--- NOTE | 2019-08-31 13:32 | Diagnostic Imaging Report ---
PROCEDURE: CT pelvis without contrast. TECHNIQUE: Multiple contiguous axial images were obtained through the pelvis without the use of intravenous contrast. Sagittal and coronal reformations were performed. Auto Exposure Controls were utilized during the CT exam to meet ALARA standards for radiation dose reduction. INDICATION: Right lower quadrant abdominal pain. FINDINGS: The appendix is normal and has no surrounding inflammation. No loculated fluid collection within the pelvis to indicate abscess. No ascites. The uterus and ovaries are physiologic in appearance. Visualized aspects of small bowel and colon are also normal in appearance. No pelvic or inguinal lymphadenopathy. Osseous pelvis is normal. Hips are normal in appearance. No osteonecrosis of the femoral heads. No sacroiliitis. IMPRESSION: 1. Appendix is normal. 2. No free pelvic fluid or abscess. Dictated by: Dictated on workstation # [id number]
== END ==
LOC: RAD 13:00
PROVIDERS: ATTEND Obstetrics & Gynecology
DX: R10.31 Right lower quadrant pain (principal)
CPT/HCPCS: 72192

== ENCOUNTER 2020-05-17 12:37 | Emergency (ER) | payer MEDICAID ==
[~2020-05-17] VITALS: Ht 149 cm; Wt 66.0 kg
[2020-05-17] MEDS ORDERED: NS 100 ML (IVPB) BAG IV ONE (13:45)
[2020-05-17] MEDS ORDERED: IOHEXOL 350 MG/ML 100 ML (OMNIPAQUE 350) VIAL IV ONE (13:45)
[2020-05-17] MEDS ORDERED: ONDANSETRON 4 MG/2 ML (SDV) Z0FRAN IVP ONE (13:45)
[2020-05-17] MEDS ORDERED: HOLD METFORMIN - RECEIVED CONTRAST 20 ML VIAL IV SCH (13:45)
[2020-05-17 13:48] LABS: NEUTROPHILS # (AUTO) 4.9 10^3/uL (1.8-7.8)
[2020-05-17 13:50] LABS: BASOPHILS % (AUTO) 0 % (0-10); EOSINOPHILS # (AUTO) 0.1 10^3/uL (0.0-0.3); EOSINOPHILS % (AUTO) 1 % (0-10); HEMATOCRIT 43 % (35-52); HEMOGLOBIN 13.9 g/dL (11.5-16.0); LYMPHOCYTES # (AUTO) 2.3 10^3/uL (1.0-4.0); LYMPHOCYTES % (AUTO) 30 % (12-44); MEAN CORPUSCULAR HEMOGLOBIN 29 pg (25-34); MEAN CORPUSCULAR HGB CONC 33 g/dL (32-36); MEAN CORPUSCULAR VOLUME 91 fL (80-99); MEAN PLATELET VOLUME 12.2 fL (9.0-12.2); MONOCYTES # (AUTO) 0.4 10^3/uL (0.0-1.0); MONOCYTES % (AUTO) 6 % (0-12); NEUTROPHILS % (AUTO) 62 % (42-75); PLATELET COUNT 200 10^3/uL (130-400); WHITE BLOOD COUNT 7.8 10^3/uL (4.3-11.0)
[2020-05-17 13:55] LABS: ALBUMIN 4.3 GM/DL (3.2-4.5)
[2020-05-17 13:56] LABS: BILIRUBIN,URINE NEGATIVE (NEGATIVE); CLARITY,URINE CLEAR; COLOR,URINE YELLOW; GLUCOSE, URINE (UA) NEGATIVE (NEGATIVE); KETONES,URINE NEGATIVE (NEGATIVE); LEUKOCYTE ESTERASE ,URINE 2+ (NEGATIVE); NITRITE,URINE NEGATIVE (NEGATIVE); PROTEIN,URINE NEGATIVE (NEGATIVE)
[2020-05-17 13:56] LABS: AMYLASE 48 U/L (25-125); CHLORIDE 105 MMOL/L (98-107); POTASSIUM 3.9 MMOL/L (3.6-5.0); SODIUM 138 MMOL/L (135-145)
[2020-05-17 13:58] LABS: GLUCOSE 90 MG/DL (70-105); TOTAL PROTEIN 7.3 GM/DL (6.4-8.2)
[2020-05-17 13:59] LABS: CARBON DIOXIDE 25 MMOL/L (21-32)
[2020-05-17 14:00] LABS: BILIRUBIN,TOTAL 0.3 MG/DL (0.1-1.0)
[2020-05-17 14:01] LABS: ALKALINE PHOSPHATASE 56 U/L (40-136)
[2020-05-17 14:02] LABS: CREATININE SERUM 0.79 MG/DL (0.60-1.30); GFR ESTIMATED > 60; SMEAR SCAN COMMENT YES
[2020-05-17 14:03] LABS: BUN/CREATININE RATIO 8
[2020-05-17 14:05] LABS: ALANINE AMINOTRANSFERASE 20 U/L (0-55); LIPASE 10 U/L (8-78)
[2020-05-17 14:06] LABS: AMORPHOUS SEDIMENT,UR LARGE AMOR URATES /LPF; BACTERIA,URINE MODERATE /HPF
--- NOTE | 2020-05-17 14:40 | Diagnostic Imaging Report ---
EXAMINATION: CT Abdomen and Pelvis with intravenous contrast. TECHNIQUE: Multiple contiguous axial images were obtained through the abdomen and pelvis after the uneventful administration of intravenous contrast. All CT scans use one or more of the following dose optimizing techniques: automated exposure control, MA and/or KvP adjustment based on a patient size and exam type, or iterative reconstruction. HISTORY: Abdominal pain. COMPARISON: 08/31/2019 and 08/12/2011. FINDINGS: Limited views of the lower thorax are unremarkable. The liver is normal without focal lesion. There is no biliary ductal dilation. Gallbladder is normal. Pancreas is normal. Spleen is normal. Adrenal glands are normal. The kidneys are normal. There is no hydronephrosis. Urinary bladder is normal. Uterus and ovaries are normal for age with a simple cyst in the right ovary. Visualized bowel is normal in caliber without obstruction or inflammation. No free fluid or air. No abdominal or pelvic lymphadenopathy. Aorta is normal in caliber without aneurysm. There are no suspicious osseous lesions. IMPRESSION: 1. No acute abnormality in the abdomen or pelvis. Dictated by: Dictated on workstation # [id number]
--- NOTE | 2020-05-17 14:41 | ED Abdominal Pain ---
General Chief Complaint: Abdominal/GI Problems Stated Complaint: BLOCKED BOWEL Source of Information: Patient Exam Limitations: No Limitations History of Present Illness Date Seen by Provider: May 17, 2020 Time Seen by Provider: 13:43 Initial Comments 39-year-old female presents to the emergency room with complaints of constipation, indigestion, concerns for a bowel obstruction. She reports that she usually only has 1 bowel movement per week and only when she uses a laxative. She reports that her primary care provider has instructed her to use MiraLAX and stool softeners on a daily basis but she has not started this. She reports that she is belching up bad taste and smells. Reports nausea denies any vomiting. Timing/Duration: 1 Week Associated Symptoms: Nausea/Vomiting Allergies and Home Medications Allergies Coded Allergies: Bc Known Allergies (Verified Allergy, Unknown, 04/15/08) Home Medications Carisoprodol 350 Mg Tablet, 350 MG PO TID, (Reported) Cephalexin 500 Mg Capsule, 500 MG PO TID Prescribed by: ANNALEE NORWOOD on 08/18/19 0954 Hydrocodone Bit/Acetaminophen 1 Each Tablet, 1-2 EACH PO Q4HR PRN Prescribed by: PEARL RONQUILLO on 08/12/11 0409 Lorazepam 0.5 Mg Tablet, 0.5 MG PO BID, (Reported) Nitrofurantoin Macrocrystal 100 Mg Capsule, 100 MG PO BID Prescribed by: RONAK ROMAN on 05/17/20 1517 Ondansetron 4 Mg Tab.rapdis, 4 MG PO Q6H PRN for NAUSEA/VOMITING Prescribed by: RONAK ROMAN on 05/17/20 1517 Venlafaxine Hcl 75 Mg Tab, 75 MG PO TID, (Reported) Patient Home Medication List Home Medication List Reviewed: Yes Review of Systems Review of Systems Constitutional: see HPI; No chills, No fever Gastrointestinal: See HPI, Abdominal Pain, Constipated Genitourinary: No Symptoms Reported, See HPI All Other Systems Reviewed Negative Unless Noted: Yes Past Krebzga-Zlqhqa-Lrkpyo Hx Past Med/Social Hx: Reviewed Nursing Past Med/Soc Hx Patient Social History Type Used: Cigarettes Recent Hopitalizations: No Seasonal Allergies Seasonal Allergies: No Past Medical History Surgeries: Yes (LYMPHNODE REMOVAL, "PLATE IN NECK") Orthopedic, Tubal Ligation Respiratory: No Cardiac: Yes Hypertension Neurological: No 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 oz. kg; 30.00 BMI Method:Stated General Appearance: WD/WN, no apparent distress Respiratory: chest non-tender, lungs clear, normal breath sounds, no respiratory distress, no accessory muscle use Cardiovascular: normal peripheral pulses, regular rate, rhythm, no edema, no gallop, no JVD, no murmur Gastrointestinal: normal bowel sounds, non tender, soft, no organomegaly, no pulsatile mass Extremities: normal range of motion, normal capillary refill Back: no CVA tenderness Neurologic/Psychiatric: alert, normal mood/affect, oriented x 3 Skin: normal color, warm/dry Progress/Results/Core Measures Results/Orders Lab Results Laboratory Tests Test 05/17/20 13:05 05/17/20 13:52 Range/Units White Blood Count 7.8 4.3-11.0 10^3/uL Red Blood Count 4.72 3.80-5.11 10^6/uL Hemoglobin 13.9 11.5-16.0 g/dL Hematocrit 43 35-52 % Mean Corpuscular Volume 91 80-99 fL Mean Corpuscular Hemoglobin 29 25-34 pg Mean Corpuscular Hemoglobin Concent 33 32-36 g/dL Red Cell Distribution Width 13.1 10.0-14.5 % Platelet Count 200 130-400 10^3/uL Mean Platelet Volume 12.2 9.0-12.2 fL Immature Granulocyte % (Auto) 0 % Neutrophils (%) (Auto) 62 42-75 % Lymphocytes (%) (Auto) 30 12-44 % Monocytes (%) (Auto) 6 0-12 % Eosinophils (%) (Auto) 1 0-10 % Basophils (%) (Auto) 0 0-10 % Neutrophils # (Auto) 4.9 1.8-7.8 10^3/uL Lymphocytes # (Auto) 2.3 1.0-4.0 10^3/uL Monocytes # (Auto) 0.4 0.0-1.0 10^3/uL Eosinophils # (Auto) 0.1 0.0-0.3 10^3/uL Basophils # (Auto) 0.0 0.0-0.1 10^3/uL Immature Granulocyte # (Auto) 0.0 0.0-0.1 10^3/uL Sodium Level 138 135-145 MMOL/L Potassium Level 3.9 3.6-5.0 MMOL/L Chloride Level 105 98-107 MMOL/L Carbon Dioxide Level 25 21-32 MMOL/L Anion Gap 8 5-14 MMOL/L Blood Urea Nitrogen 6 L 7-18 MG/DL Creatinine 0.79 0.60-1.30 MG/DL Estimat Glomerular Filtration Rate > 60 BUN/Creatinine Ratio 8 Glucose Level 90 70-105 MG/DL Calcium Level 9.0 8.5-10.1 MG/DL Corrected Calcium 8.8 8.5-10.1 MG/DL Total Bilirubin 0.3 0.1-1.0 MG/DL Aspartate Amino Transf (AST/SGOT) 18 5-34 U/L Alanine Aminotransferase (ALT/SGPT) 20 0-55 U/L Alkaline Phosphatase 56 40-136 U/L Total Protein 7.3 6.4-8.2 GM/DL Albumin 4.3 3.2-4.5 GM/DL Amylase Level 48 25-125 U/L Lipase 10 8-78 U/L Smear Scan YES Urine Color YELLOW Urine Clarity CLEAR Urine pH 6.0 5-9 Urine Specific Ragley 1.015 L 1.016-1.022 Urine Protein NEGATIVE NEGATIVE Urine Glucose (UA) NEGATIVE NEGATIVE Urine Ketones NEGATIVE NEGATIVE Urine Nitrite NEGATIVE NEGATIVE Urine Bilirubin NEGATIVE NEGATIVE Urine Urobilinogen 0.2 < = 1.0 MG/DL Urine Leukocyte Esterase 2+ H NEGATIVE Urine RBC (Auto) 3+ H NEGATIVE Urine RBC 10-25 H /HPF Urine WBC 10-25 H /HPF Urine Squamous Epithelial Cells 10-25 H /HPF Urine Crystals PRESENT H /LPF Urine Amorphous Sediment LARGE JJ URATES H /LPF Urine Bacteria MODERATE H /HPF Urine Casts NONE /LPF Urine Mucus NEGATIVE /LPF Urine Culture Indicated YES My Orders Orders - RONAK ROMAN Comprehensive Metabolic Panel (05/17/20 13:43) Lipase (05/17/20 13:43) Amylase (05/17/20 13:43) Ua Culture If Indicated (05/17/20 13:43) Ed Iv/Invasive Line Start (05/17/20 13:43) Cbc With Automated Diff (05/17/20 13:43) Ct Abdomen/Pelvis W (05/17/20 13:43) Ondansetron Injection (Zofran Injectio (05/17/20 13:45) Iohexol Injection (Omnipaque 350 Mg/Ml 1 (05/17/20 13:45) Received Contrast (Hold Metformin- Contr (05/17/20 13:45) Ns (Ivpb) (Sodium Chloride 0.9% Ivpb Bag (05/17/20 13:45) Urine Culture (05/17/20 13:52) Medications Given in ED Current Medications Medications Dose Ordered Sig/Bashir Route Start Time Stop Time Status Last Admin Dose Admin Iohexol 100 ml ONCE ONCE IV 05/17/20 13:45 05/17/20 13:49 DC 05/17/20 14:10 98 ML Ondansetron HCl 4 mg ONCE ONCE IVP 05/17/20 13:45 05/17/20 13:46 DC 05/17/20 13:55 4 MG Sodium Chloride 100 ml ONCE ONCE IV 05/17/20 13:45 05/17/20 13:49 DC 05/17/20 14:10 80 ML Vital Signs/I&O 05/17/20 05/17/20 12:53 15:24 Temp 36.9 Pulse 91 84 Resp 20 18 B/P (MAP) 160/94 (116) 142/88 Pulse Ox 98 99 Departure Impression Primary Impression: Abdominal pain Additional Impression: Urinary tract infection Disposition: HOME, SELF-CARE Condition: Stable/Unchanged Departure-Patient Inst. Decision time for Depature: 15:16 Referrals: NO,LOCAL PHYSICIAN (PCP/Family) Primary Care Physician Patient Instructions: Urinary Tract Infection, Adult (DC), Severe Abdominal Pain, Adult (DC) Add. Discharge Instructions: Drink plenty of fluids to stay hydrated. Follow-up with your primary care provider within 1 week for recheck. Take medications as directed. Return back to the emergency room for worsening symptoms or concerns as needed. All discharge instructions reviewed with patient and/or family. Voiced understanding. Scripts Nitrofurantoin Macrocrystal (Nitrofurantoin) 100 Mg Capsule 100 MG PO BID, #14 CAP 0 Refills Prov: RONAK ROMAN 05/17/20 Ondansetron (Ondansetron Odt) 4 Mg Tab.rapdis 4 MG PO Q6H PRN for NAUSEA/VOMITING, #8 TAB 0 Refills Prov: RONAK ROMAN 05/17/20 RONAK ROMAN May 17, 2020 14:41
[2020-05-17] MEDS ORDERED: ONDA4TAB11 PO (15:17)
[2020-05-17] MEDS ORDERED: NITR100C PO (15:17)
[2020-05-17 15:24] VITALS: BP 142/88
== END 2020-05-17 15:24 | disposition home or self-care (01) ==
LOC: EDUNIT# 12:37 → ER 12:39
DX: R10.9 Unspecified abdominal pain (principal); N39.0 Urinary tract infection, site not specified; G89.29 Other chronic pain; M54.9 Dorsalgia, unspecified; Z79.891 Long term (current) use of opiate analgesic
CPT/HCPCS: 36415; 74177; 80053; 81000; 82150; 83690; 85025; 87088

== ENCOUNTER 2021-07-03 02:18 | Emergency (ER) | payer MEDICAID ==
[~2021-07-03] VITALS: Ht 149 cm; Wt 66.2 kg
[~2021-07-03 02:18] MED LIST changes: +NITR100C PO; +ONDA4TAB11 PO
--- NOTE | 2021-07-03 02:43 | ED General ---
General Chief Complaint: Head/Cervical Problems Stated Complaint: NECK,HEAD & EAR PAIN,POSS FEVER,NAUSEA Source of Information: Patient History of Present Illness Date Seen by Provider: Jul 03, 2021 Time Seen by Provider: 02:27 Initial Comments M HOME STATES SHE STARTED FEELING SICK ON Friday07/01/21 C/O SUBJECTIVE FEVER C/O NECK PAIN --HAS CHRONIC NECK PAIN AND HAS HAD C-SPINE FUSION C/O PAIN TO BACK OF HEAD/BEHIND EARS HAS HAD NAUSEA AND VOMITED X 2 ON FRIDAY. NO DIARRHEA SLIGHT SORE THROAT NO LOSS OF TASTE OR SMELL NO URI SYMPTOMS PT HAS CHRONIC NECK AND BACK PAIN --SEES A SPINE DR IN [place] PT HAS CHRONIC GENERALIZED PAIN , STATES SHE HAS RHEUMATOID ARTHRITIS, BUT DOES NOT TAKE ANYTHING FOR IT, AND DOES NOT CURRENTLY SEE A LUTE PACKER OR APPLIER PT STATES HAS HTN, BUT DOES NOT TAKE MEDICATIONS BECAUSE SHE HAS NOT SEEN A PRIMARY CARE DR "IN A LONG TIME" --WAS SEEING A DR IN [place]. PT TOOK 1 TYLENOL AT 1500 YESTERDAY, AND TOOK 1 HYDROCODONE AT 2200 TONIGHT HAS NOT TAKEN ANYTHING ELSE FOR SYMPTOMS PT FILLED RX'S FOR : GABAPENTIN 600 MG #90 ON 06/28/21 HYDROCODONE 7.5/325 #120 ON 06/28/21 TIZANIDINE 4 MG #120 ON 06/14/21 DENIES ANY KNOWN SICK CONTACTS PT DOES NOT WORK PT HAS NOT HAD COVID OR FLU VACCINES LMP 06/07/21. NORMAL, S/P BTL. Allergies and Home Medications Allergies Coded Allergies: NKANo Known Allergies (Verified Allergy, Unknown, 04/15/08) Patient Home Medication List Home Medication List Reviewed: Yes Amoxicillin (Amoxicillin) 875 Mg Tablet, 875 MG PO BID Prescribed by: GEORGE AKHTAR on 07/03/21 0333 Carisoprodol (Soma) 350 Mg Tablet, 350 MG PO TID, (Reported) Entered as Reported by: ALESSANDRA HUNTER on 08/12/11 0234 Cephalexin (Keflex) 500 Mg Capsule, 500 MG PO TID Prescribed by: ANNALEE NORWOOD on 08/18/19 0954 Hydrocodone Bit/Acetaminophen (Vicodin 5-500 Tablet) 1 Each Tablet, 1-2 EACH PO Q4HR PRN Prescribed by: PEARL RONQUILLO on 08/12/11 0409 Lorazepam (Ativan) 0.5 Mg Tablet, 0.5 MG PO BID, (Reported) Entered as Reported by: ALESSANDRA HUNTER on 08/12/11233 Methylprednisolone (Medrol) 4 Mg Tab.ds.pk, 4 MG PO UD Prescribed by: GEORGE AKHTAR on 07/03/21 0333 Nitrofurantoin Macrocrystal (Nitrofurantoin) 100 Mg Capsule, 100 MG PO BID Prescribed by: RONAK ROMAN on 05/17/20 151 Ondansetron (Ondansetron Odt) 4 Mg Tab.rapdis, 4 MG PO Q6H PRN for NAUSEA/VOMITING Prescribed by: RONAK ROMAN on 05/17/20 151 Venlafaxine Hcl (Effexor Tab) 75 Mg Tab, 75 MG PO TID, (Reported) Entered as Reported by: ALESSANDRA HUNTER on 08/12/11233 Review of Systems Review of Systems Constitutional: see HPI, fever EENTM: see HPI Respiratory: no symptoms reported Cardiovascular: no symptoms reported Gastrointestinal: see HPI; No diarrhea; nausea, vomiting Genitourinary: no symptoms reported Musculoskeletal: see HPI Skin: no symptoms reported Psychiatric/Neurological: See HPI Hematologic/Lymphatic: Other (CHRONIC SWOLLEN GLANDS ON RIGHT SIDE OF NECK FOR YEARS--UNCHANGED) Immunological/Allergic: no symptoms reported Past Qzorkhp-Xlstov-Jifzzb Hx Patient Social History Tobacco Use?: No Substance use?: No Alcohol Use?: No Seasonal Allergies Seasonal Allergies: No Past Medical History Surgeries: Yes (LYMPHNODE REMOVAL, "PLATE IN NECK";"NERVES IN BACK BURNED" ) Neurological, Orthopedic, Tubal Ligation Respiratory: No Cardiac: Yes (DOES NOT TAKE PRESCRIBED MEDICATIONS) Hypertension Neurological: Yes Headaches /Migraines 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 PAIN;C-SPINE FUSION:NERVES IN BACK BURNED) Arthritis, Rheumatoid Arthritis, Back Injury, Chronic Back Pain Endocrine: No HEENT: No Cancer: No Psychosocial: Yes (OVERDOSES) Anxiety, Suicide Attempts, Bipolar, Depression Integumentary: No Blood Disorders: No Family Medical History CHRONIC SWOLLEN LYMPH NODES RIGHT NECK NON-COMPLIANCE IN ALL ASPECTS OF CARE Physical Exam Vital Signs Vital Signs - First Documented 07/03/21 02:23 Temp 36.6 Pulse 114 Resp 24 B/P (MAP) 180/128 (145) Pulse Ox 100 O2 Delivery Room Air Capillary Refill : Height, Weight, BMI Height: '" Weight: lbs. oz. kg; 29.00 BMI Method:Stated General Appearance: No Apparent Distress, WD/WN, Other (VERY DRAMATIC; ) HEENT: PERRL/EOMI, TMs Normal, Normal ENT Inspection, Pharynx Normal, Moist Mucous Membranes Neck: Other (DIFFUSE TENDERNESS TO LATERAL AND POSTERIOR NECK, AND POST AURICU LAR AREAS BILATERALLY. HAS A FEW TINY ( BB-SIZED) POSTERIOR CERVICAL AND POST AURICULAR NODES ) Respiratory: Normal Breath Sounds, No Accessory Muscle Use, No Respiratory Distress Cardiovascular: Regular Rate, Rhythm, No Edema, No JVD, No Murmur, Normal Peripheral Pulses Gastrointestinal: Soft Back: No CVA Tenderness Extremity: Normal Inspection Neurologic/Psychiatric: Alert, Oriented x3, No Motor/Sensory Deficits, bpm developer II- XII Norm as Tested Skin: Normal Color, Warm/Dry; No Rash; Other (MULTIPLE SORES/SCARS/SCABS TO FACE.NO SIGNS OF INFECTION TO ANY OF THESE AREAS) Progress/Results/Core Measures Suspected Sepsis SIRS Temperature: Pulse: Respiratory Rate: Blood Pressure / Mean: Results/Orders Lab Results Laboratory Tests Test 07/03/21 02:30 Range/Units Influenza Type A (RT-PCR) Not Detected Not Detecte Influenza Type B (RT-PCR) Not Detected Not Detecte SARS-CoV-2 RNA (RT-PCR) Not Detected Not Detecte Group A Streptococcus Screen NEGATIVE NEGATIVE My Orders Orders - GEORGE AKHTAR DO Rapid Strep A Screen (07/03/21 02:26) Covid 19 Inhouse Test (07/03/21 02:26) Influenza A And B By Pcr (07/03/21 02:26) Isolation Central Supply Req (07/03/21 02:26) Ketorolac Injection (Toradol Injection) (07/03/21 03:30) Orphenadrine Inj (Ed Only) (Norflex Inje (07/03/21 03:30) Rx-Amoxicillin Capsule (Rx-Polymox Capsu (07/03/21 03:36) Medications Given in ED Current Medications Medications Dose Ordered Sig/Bashir Route Start Time Stop Time Status Last Admin Dose Admin Ketorolac Tromethamine 60 mg ONCE ONCE IM 07/03/21 03:30 07/03/21 03:31 DC 07/03/21 03:34 60 MG Orphenadrine Citrate 60 mg ONCE ONCE IM 07/03/21 03:30 07/03/21 03:31 DC 07/03/21 03:34 60 MG Vital Signs/I&O 07/03/21 07/03/21 07/03/21 02:23 03:24 03:46 Temp 36.6 36.6 Pulse 114 101 94 Resp 24 16 16 B/P (MAP) 180/128 (145) 146/117 160/117 Pulse Ox 100 99 100 O2 Delivery Room Air Room Air Room Air Capillary Refill : Progress Note : Progress Note UNEVENTFUL ER STAY PT WOULD LIKE ANTIBIOTICS Departure Impression Primary Impression: EXACERBATION OF CHRONIC PAIN Additional Impressions: MILD CERVICAL ADENOPATHY Headache Disposition: HOME, SELF-CARE Condition: Stable Departure-Patient Inst. Decision time for Depature: 03:30 Referrals: NO,LOCAL PHYSICIAN (PCP/Family) Primary Care Physician Patient Instructions: Chronic Neck Pain (DC), Lymphadenitis (DC), Tension Headache (DC) Add. Discharge Instructions: CONTINUE YOUR HYDROCODONE NEEDED FOR PAIN CONTINUE TIZANIDINE MUSCLE RELAXANT FOLLOW UP WITH IN 2-3 DAYS FOR FURTHER CARE All discharge instructions reviewed with patient and/or family. Voiced understanding. Scripts Methylprednisolone (Medrol) 4 Mg Tab.ds.pk 4 MG PO UD for 6 Days, #21 PKG PER DOSE PACK INSTRUCTIONS Prov: GEORGE AKHTAR DO 07/03/21 Amoxicillin (Amoxicillin) 875 Mg Tablet 875 MG PO BID, #20 TAB Prov: GEORGE AKHTAR DO 07/03/21 GEORGE AKHTAR DO Jul 03, 2021 02:43
[2021-07-03] MEDS ORDERED: KETOROLAC 60 MG/2 ML VIAL IM ONE (03:30)
[2021-07-03] MEDS ORDERED: ORPHENADRINE 60 MG/2 ML (NORFLEX) AMP (ED ONLY) IM ONE (03:30)
[2021-07-03] MEDS ORDERED: AMOX875T2 PO (03:33)
[2021-07-03] MEDS ORDERED: METH4TAB PO (03:33)
[2021-07-03] MEDS ORDERED: RX-AMOXICILLIN 500 MG CAP #3 PPK PO STA (03:36)
[2021-07-03 03:46] VITALS: BP 160/117
== END 2021-07-03 03:47 | disposition home or self-care (01) ==
LOC: EDUNIT# 02:18 → ER 02:21
DX: G89.29 Other chronic pain (principal); R59.0 Localized enlarged lymph nodes; R51.9 Headache, unspecified; Z20.822 Contact with and (suspected) exposure to COVID-19
CPT/HCPCS: 87430; 87636; 99284

== ENCOUNTER 2022-10-25 08:53 | Emergency (ER) | payer MEDICAID ==
[~2022-10-25] VITALS: Ht 149.8 cm; Wt 66.2 kg
[~2022-10-25 08:53] MED LIST changes: +AMOX875T2 PO; +METH4TAB PO
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
[2022-10-25] MEDS ORDERED: ONDANSETRON 4 MG/2 ML (SDV) Z0FRAN IVP ONE (09:45)
[2022-10-25] MEDS ORDERED: NS IV 1000 ML 1,000 ML IV STA (09:45)
[2022-10-25] MEDS ORDERED: KETOROLAC 15 MG/ML VIAL IVP ONE ×2 (09:45→11:45)
[2022-10-25 09:51] LABS: BASOPHILS % (AUTO) 0 % (0-10); EOSINOPHILS # (AUTO) 0.1 10^3/uL (0.0-0.3); EOSINOPHILS % (AUTO) 1 % (0-10); HEMATOCRIT 48 % (35-52); HEMOGLOBIN 16.1 g/dL (11.5-16.0); LYMPHOCYTES # (AUTO) 3.5 10^3/uL (1.0-4.0); LYMPHOCYTES % (AUTO) 32 % (12-44); MEAN CORPUSCULAR HEMOGLOBIN 30 pg (25-34); MEAN CORPUSCULAR HGB CONC 34 g/dL (32-36); MEAN CORPUSCULAR VOLUME 90 fL (80-99); MEAN PLATELET VOLUME 10.8 fL (9.0-12.2); MONOCYTES # (AUTO) 0.7 10^3/uL (0.0-1.0); MONOCYTES % (AUTO) 6 % (0-12); NEUTROPHILS # (AUTO) 6.4 10^3/uL (1.8-7.8); NEUTROPHILS % (AUTO) 60 % (42-75); PLATELET COUNT 195 10^3/uL (130-400); WHITE BLOOD COUNT 10.7 10^3/uL (4.3-11.0)
[2022-10-25 09:57] LABS: POTASSIUM 3.3 MMOL/L (3.6-5.0)
[2022-10-25 09:59] LABS: CALCIUM 9.9 MG/DL (8.5-10.1)
[2022-10-25 10:03] LABS: CREATININE SERUM 0.84 MG/DL (0.60-1.30)
[2022-10-25] MEDS ORDERED: CYCLOBENZAPRINE 10 MG (FLEXERIL) TAB PO STA (11:07)
[2022-10-25] MEDS ORDERED: cloNIDine 0.1 MG (CATAPRES) TAB PO ONE (11:15)
[2022-10-25] MEDS ORDERED: LOSARTAN 50 MG (COZAAR) TAB PO ONE (11:15)
[2022-10-25] MEDS ORDERED: LOSA50TA63 PO (11:52)
[2022-10-25] MEDS ORDERED: ORPH100T3 PO (11:52)
[2022-10-25 12:01] VITALS: BP 137/883
== END 2022-10-25 12:01 | disposition home or self-care (01) ==
LOC: EDUNIT# 08:53 → ER 08:55
DX: M54.2 Cervicalgia (principal); I16.0 Hypertensive urgency; E87.6 Hypokalemia; Z87.891 Personal history of nicotine dependence; Z28.310 Unvaccinated for COVID-19
CPT/HCPCS: 36415; 80048; 84703; 85025